=== PATIENT | male | born 1935 | race Caucasian/White ===

== ENCOUNTER 2017-05-21 05:20 | Inpatient (IN) | payer OTHER ==
[~2017-05-21] VITALS: Ht 182.9 cm; Wt 96.0 kg
[~2017-05-21 05:20] MED LIST: ASPEC81 PO; DORZ1SOL OPL; EZET10TA63 PO; LEVO25TA5 PO; METO100T44 PO; MULT-506 PO; TAFL1DRO14 OPL
[2017-05-21] MEDS ORDERED: SODIUM CHLORIDE 0.9% 1000ML 1,000 ML IV STA ×2 (05:32→06:41)
[2017-05-21] MEDS ORDERED: FENTANYL CITRATE INJ 50 MCG/1 ML 2 ML VIAL IV STA (05:32)
[2017-05-21] MEDS ORDERED: ONDANSETRON INJ 2 MG/ML 2 ML VIAL IV STA (05:32)
--- NOTE | 2017-05-21 05:47 | EMERGENCY ROOM VISIT NOTE ---
History Report prepared by Pat: Femi Payne Under the Supervision of: Dr. Adiel Reyes M.D. First contact with patient: 05:27 Chief Complaint: KIDNEY STONE Stated Complaint: POSSIBLE KIDNEY STONE History of Present Illness The patient is an 82 year old male who presents to the Emergency Room with complaints of persistent left flank pain for one hour. He notes it feels like pressure. He reports nausea. He denies any rashes. He denies taking any pain medication. He notes that he can urinate. He has a history of kidney stones. He denies any surgeries related to kidney stones. He denies any abdominal aneurysms. He regularly takes baby Aspirin. He has history of cardiac bypass surgery. He denies any diarrhea. He denies any strenuous activity. He denies any leg swelling. He denies any history of CHF. Source of History: patient Onset: one hour ago Position: other (left flank) Quality: pressure Timing: other (persistent) Associated Symptoms: + nausea, No diarrhea, No rash Note: He denies any leg swelling. Review of Systems See HPI for pertinent positives & negatives. A total of 10 systems reviewed and were otherwise negative. Past Medical & Surgical Medical Problems: (1) Dyslipidemia (2) HTN (hypertension) (3) Hypothyroidism (4) Kidney stone Surgical Problems: (1) Hx of CABG (2) Hx of cholecystectomy Family History Diabetes mellitus FHx: heart disease Hypertension Kidney disease Kidney stones Social History Smoking Status: Never Smoker Smokeless Tobacco Use: No Alcohol Use: occasionally (rarely) Marital Status: Housing Status: lives with significant other Occupation Status: unemployed Current/Historical Medications Scheduled Aspirin Enteric Coated (Ecotrin Or Generic *), 81 MG PO QAM Ezetimibe (Zetia), 10 MG PO QPM Levothyroxine Sodium (Levothyroxine Sodium), 25 MCG PO QAM Metoprolol Tartrate (Lopressor) (Lopressor), 50 MG PO DAILY Multivitamin (Multivitamin), 1 TAB PO QAM Allergies Coded Allergies: Atorvastatin (Unverified Adverse Reaction, Unknown, MUSCLE CRAMPS, 05/21/17 ) Simvastatin (Unverified Adverse Reaction, Unknown, MUSCLE CRAMPS, 05/21/17) Physical Exam Vital Signs Date Time Temp Pulse Resp B/P (MAP) Pulse Ox O2 Delivery O2 Flow Rate FiO2 05/21/17 08:41 82 18 157/79 97 Nasal Cannula 2.0 05/21/17 07:48 77 18 124/74 97 Nasal Cannula 2.0 05/21/17 07:45 97 Nasal Cannula 2.0 05/21/17 07:16 89 Room Air 05/21/17 06:41 74 20 158/96 98 Room Air 05/21/17 06:31 76 20 163/94 97 Room Air 05/21/17 06:10 70 16 135/95 95 Room Air 05/21/17 05:23 36.3 76 18 173/94 97 Room Air Physical Exam GENERAL: Patient is uncomfortable-appearing and in moderate acute distress. EYES: No scleral icterus, unremarkable pupils. ENT: Mucous membranes moist, no nasal congestion. NECK: No masses appreciated, no meningismus, trachea is midline. RESPIRATORY: No dyspnea. Clear to auscultation and equal bilaterally. No wheeze , no rhonchi. CARDIOVASCULAR: Regular rate and rhythm. No murmurs, rubs, gallops appreciated. GASTROINTESTINAL: Abdomen soft, nontender, no peritonitis. Bowel sounds positive. No masses appreciated. BACK: No midline tenderness, mild left CVA tenderness to palpation. EXTREMITIES: Normal motion all extremities, no cyanosis, no edema. NEUROLOGIC: Alert and oriented, no acute motor or sensory deficits, no focal weakness, cranial nerves grossly intact. SKIN: No rash, no jaundice, no diaphoresis. Medical Decision & Procedures ER Provider Diagnostic Interpretation: CT Abdo/Pelv wo Con: Read per radiologist. Imaging and Read reviewed by me IMPRESSION: 1. Obstructing 4 mm calculus in the proximal left ureter at the level of L4 with resultant mild left hydroureteronephrosis. 2. Nonobstructing 3 mm left renal calculus. No right renal calculi. 3. Chronic bladder outlet obstruction with prostatomegaly. Electronically signed by: Morro Matson M.D. Laboratory Results Test 05/21/17 05:40 RDW Standard Deviation 51.0 fL (36.4-46.3) RDW Coefficient of Variation 15.2 % (11.5-14.5) White Blood Count 6.73 K/uL (4.8-10.8) Red Blood Count 4.72 M/uL (4.7-6.1) Hemoglobin 14.9 g/dL (14.0-18.0) Hematocrit 43.6 % (42-52) Mean Corpuscular Volume 92.4 fL (80-100) Mean Corpuscular Hemoglobin 31.6 pg (25-34) Mean Corpuscular Hemoglobin Concent 34.2 g/dl (32-36) Platelet Count 150 K/uL (130-400) Mean Platelet Volume 9.7 fL (7.4-10.4) Neutrophils (%) (Auto) 40.6 % Lymphocytes (%) (Auto) 45.2 % Monocytes (%) (Auto) 9.8 % Eosinophils (%) (Auto) 3.7 % Basophils (%) (Auto) 0.3 % Neutrophils # (Auto) 2.73 K/uL (1.4-6.5) Lymphocytes # (Auto) 3.04 K/uL (1.2-3.4) Monocytes # (Auto) 0.66 K/uL (0.11-0.59) Eosinophils # (Auto) 0.25 K/uL (0-0.5) Basophils # (Auto) 0.02 K/uL (0-0.2) Immature Granulocyte % (Auto) 0.4 % Immature Granulocyte # (Auto) 0.03 K/uL (0.00-0.02) Prothrombin Time 10.6 SECONDS (9.0-12.0) Prothromb Time International Ratio 1.0 (0.9-1.1) Activated Partial Thromboplast Time 24.4 SECONDS (21.0-31.0) Partial Thromboplastin Ratio 0.9 Est Creatinine Clear Calc Drug Dose 46.2 ml/min Total Bilirubin 0.8 mg/dl (0.2-1) Direct Bilirubin 0.2 mg/dl (0-0.2) Aspartate Amino Transf (AST/SGOT) 19 U/L (15-37) Alanine Aminotransferase (ALT/SGPT) 26 U/L (12-78) Alkaline Phosphatase 71 U/L (45-117) Total Creatine Kinase 130 U/L (39-308) Total Protein 7.9 gm/dl (6.4-8.2) Albumin 4.0 gm/dl (3.4-5.0) Lipase 131 U/L (73-393) Laboratory results as reviewed by me. Medications Administered Medications (Trade) Dose Ordered Sig/Juan Route Start Time Stop Time Status Last Admin Dose Admin Sodium Chloride 1,000 ml @ 999 mls/hr Q1H1M STAT IV 05/21/17 05:32 05/21/17 06:32 DC 05/21/17 06:09 999 MLS/HR Fentanyl Citrate (Fentanyl Inj) 75 mcg NOW STAT IV 05/21/17 05:32 05/21/17 05:33 DC 05/21/17 05:46 75 MCG Ondansetron HCl (Zofran Inj) 4 mg NOW STAT IV 05/21/17 05:32 05/21/17 05:33 DC 05/21/17 05:46 4 MG Hydromorphone HCl (Dilaudid Inj) 0.5 mg NOW STAT IV 05/21/17 06:10 05/21/17 06:11 DC 05/21/17 06:14 0.5 MG Hydromorphone HCl (Dilaudid Inj) 1 mg NOW STAT IV 05/21/17 06:23 05/21/17 06:24 DC 05/21/17 06:30 1 MG Tamsulosin HCl (Flomax Cap) 0.4 mg NOW ONCE PO 05/21/17 06:45 05/21/17 06:46 DC 05/21/17 07:02 0.4 MG Sodium Chloride 1,000 ml @ 100 mls/hr Q10H STAT IV 05/21/17 06:41 05/21/17 10:05 DC 05/21/17 06:57 100 MLS/HR Ketorolac Tromethamine (Toradol Inj) 15 mg NOW STAT IV 05/21/17 06:43 05/21/17 06:45 DC 05/21/17 06:56 15 MG Ondansetron HCl (Zofran Inj) 4 mg Q6H PRN IV 05/21/17 07:00 05/21/17 10:05 DC 05/21/17 08:38 4 MG Ondansetron HCl (Zofran Inj) 4 mg Q6H PRN IV 05/21/17 08:30 06/20/17 08:29 05/21/17 17:13 4 MG ED Course 0528: The patient was evaluated in room A3. A complete history and physical exam was performed. 0610: I reassessed the patient at this time. He reports mild relief with Fentanyl. He states it initially helped, though the pain returned. Medical Decision Differential: Renal Colic, Pyelonephritis, Hydronephrosis, Appendicitis, Diverticulitis, Retroperitoneal Bleed/Infection, Aortic Pathology, MSK, Neurologic Pathology, amongst other pathologies entertained. 82 yr old very uncomfortable male with left flank pain sudden onset and nausea. Story and exam consistent with ureteral stone and CT done given no recent imaging and only distant stone in past. CT with 4 mm proximal stone. Continued discomfort despite 3 rounds IV narcotics. Reviewed with Uro who agree with Toradol, Flomax and further narcotics as necessary. Mild renal insufficiency but seems reasonable single dose toradol, especially if this helps alleviate pain and will be monitored closely. Hospitalist consulted given intractable pain and requiring multiple rounds IV narcotics. Not septic and labs without renal failure. Awaiting UA though without fever nor WBC elevation I do not feel that empiric abx required at this time. Medication Reconcilliation Current Medication List: was personally reviewed by me Blood Pressure Screening Patient's blood pressure: Elevated blood pressure Blood pressure disposition: Elevated BP felt to be situational Impression Primary Impression: Left ureteral calculus Additional Impression: Dehydration Scribe Attestation The scribe's documentation has been prepared under my direction and personally reviewed by me in its entirety. I confirm that the note above accurately reflects all work, treatment, procedures, and medical decision making performed by me. Departure Information Dispostion Home / Self-Care Referrals Gin Ledesma M.D. (PCP) Patient Instructions Kidney Stones - [facility], My [facility] Problem Qualifiers
[2017-05-21 06:00] LABS: BASO % 0.3 %; BASO ABS # 0.02 K/uL (0-0.2); EOS % 3.7 %; EOS ABS # 0.25 K/uL (0-0.5); HEMATOCRIT 43.6 % (42-52); HEMOGLOBIN 14.9 g/dL (14.0-18.0); IG# 0.03 K/uL (0.00-0.02); LYMPH % 45.2 %; LYMPH ABS # 3.04 K/uL (1.2-3.4); MEAN CELL VOLUME 92.4 fL (80-100); MEAN CORPUSCULAR HEMOGLOBIN 31.6 pg (25-34); MEAN CORPUSCULAR HGB CONC 34.2 g/dl (32-36); MEAN PLATELET VOLUME 9.7 fL (7.4-10.4); MONO % 9.8 %; MONO ABS # 0.66 K/uL (0.11-0.59); NEUT % 40.6 %; NEUT ABS # 2.73 K/uL (1.4-6.5); PLATELET COUNT 150 K/uL (130-400); RED CELL DISTRIBUTION WIDTH CV 15.2 % (11.5-14.5); WHITE BLOOD COUNT 6.73 K/uL (4.8-10.8)
[2017-05-21] MEDS ORDERED: HYDROmorphone INJ 0.5 MG/0.5 ML SYR IV STA (06:10)
[2017-05-21 06:14] LABS: CALCIUM 8.9 mg/dl (8.5-10.1); CREATININE 1.4 mg/dl (0.60-1.40); POTASSIUM 3.9 mmol/L (3.5-5.1)
[2017-05-21 06:17] LABS: TOTAL PROTEIN 7.9 gm/dl (6.4-8.2)
--- NOTE | 2017-05-21 06:17 | DIAGNOSTIC IMAGING REPORT ---
ABD/PELVIS WITHOUT FOR STONE CLINICAL HISTORY: 82 years-old Male presenting with left flank pain 1 hr prior. TECHNIQUE: Multidetector CT of the abdomen and pelvis was performed without the use of intravenous contrast. IV contrast: None. A dose lowering technique was used consistent with the principles of ALARA (as low as reasonably achievable). COMPARISON: Ultrasound from 2005. CT DOSE (mGy.cm): The estimated cumulative dose is 933.79 mGy.cm. FINDINGS: It Director topogram: Cholecystectomy clips. Median sternotomy wires. Lung bases: Minimal basilar opacities, likely atelectasis. Multichamber enlargement of the heart. Coronary artery calcification. No pericardial or pleural effusion. Liver: Normal morphology. Normal density. Subcentimeter hypodensity in the anterior liver indeterminate but likely hepatic cyst or hamartoma. Biliary: No gross biliary ductal dilatation allowing for noncontrast technique. Gallbladder surgically absent. Pancreas: Normal noncontrast appearance. Spleen: Normal noncontrast appearance. Adrenal glands: Normal noncontrast appearance. Kidneys and ureters: Nonobstructing 3 mm left renal calculus. Mild left pelvocaliectasis. Left ureter mildly dilated in the proximal portion with an obstructing 4 mm calculus at the level of L4. Mild perinephric fat stranding bilaterally, nonspecific. No right renal calculi. Otherwise normal noncontrast appearance of the kidneys. Right ureter normal. Bladder: Circumferential bladder wall thickening. Bladder diverticulum noted. Pelvic organs: Prostate enlargement likely secondary to benign prostatic hyperplasia. Bowel: Few diverticula noted in the sigmoid colon. Mild stool burden. The appendix is normal. No bowel obstruction. Small hiatal hernia. Peritoneal cavity: No free fluid or intraperitoneal gas. Lymph nodes: No gross lymphadenopathy allowing for noncontrast technique. Vasculature: Atherosclerosis of the normal caliber abdominal aorta. Abdominal wall: Normal. Musculoskeletal: Degenerative changes of the spine. IMPRESSION: 1. Obstructing 4 mm calculus in the proximal left ureter at the level of L4 with resultant mild left hydroureteronephrosis. 2. Nonobstructing 3 mm left renal calculus. No right renal calculi. 3. Chronic bladder outlet obstruction with prostatomegaly. Electronically signed by: Morro Matson M.D. 05/21/2017 6:16 AM Dictated Date/Time: 05/21/2017 6:08 AM
[2017-05-21] MEDS ORDERED: HYDROmorphone INJ 1 MG/ML SYR IV STA (06:23)
[2017-05-21] MEDS ORDERED: KETOROLAC TROMETHAMINE 30 MG/ML VIAL IV STA (06:43)
[2017-05-21] MEDS ORDERED: TAMSULOSIN HCL 0.4 MG CAP PO ONE (06:45)
[2017-05-21] MEDS ORDERED: HYDROmorphone INJ 1 MG/ML SYR IV PRN ×2 (07:00→09:15)
[2017-05-21] MEDS ORDERED: ONDANSETRON INJ 2 MG/ML 2 ML VIAL IV PRN ×2 (07:00→10:30)
--- NOTE | 2017-05-21 07:41 | DIAGNOSTIC IMAGING REPORT ---
CHEST ONE VIEW PORTABLE CLINICAL HISTORY: 82 years-old Male presenting with ureteral calculus. TECHNIQUE: Portable upright AP view of the chest was obtained. COMPARISON: 07/23/2007. FINDINGS: Median sternotomy wires intact. Atherosclerosis of the aortic arch. Cardiac silhouette normal in size. No focal opacity. No large effusion or pneumothorax. Degenerative changes of the thoracic spine. Upper abdomen normal. IMPRESSION: 1. No acute cardiopulmonary disease. Electronically signed by: Morro Matson M.D. 05/21/2017 7:39 AM Dictated Date/Time: 05/21/2017 7:38 AM
[2017-05-21 07:45] VITALS: O2SAT 97; Ht 182.9 cm; Wt 96.0 kg
[2017-05-21 07:57] LABS: PTT PATIENT 24.4 SECONDS (21.0-31.0)
--- NOTE | 2017-05-21 08:29 | History and Physical ---
History & Physical Date & Time of Service: May 21, 2017 at 08:29 . Chief Complaint: left flank pain, nausea, vomiting . Primary Care Physician: Gin Ledesma M.D. History of Present Illness Source: patient, clinic records, hospital records 82 YO male followed by Gin Ledesma. History of CAD, hypertension, renal calculi, and other problems as noted below. Developed left flank pain this morning around 03:00. Pain was severe and constant; radiated to the left groin. No fever, dysuria, hematuria. Pain associated with nausea and vomiting. Came to ED for evaluation. [place] somewhat better after receiving fentanyl, hydromorphone, ondansetron. . 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 Family History FATHER Pneumoconiosis MOTHER Diabetes mellitus BROTHER Diabetes mellitus Coronary artery disease SISTER Diabetes mellitus Social History Smoking Status: Never Smoker Smokeless Tobacco Use: No Alcohol Use: occasionally Marital Status: Occupational Status: unemployed Immunizations History of Influenza Vaccine: Yes History of Pneumococcal: Yes Allergies Coded Allergies: Atorvastatin (Unverified Adverse Reaction, Unknown, MUSCLE CRAMPS, 05/21/17 ) Simvastatin (Unverified Adverse Reaction, Unknown, MUSCLE CRAMPS, 05/21/17) Home Medications Scheduled Aspirin Enteric Coated (Ecotrin Or Generic *), 81 MG PO QAM Ezetimibe (Zetia), 10 MG PO QPM Levothyroxine Sodium (Levothyroxine Sodium), 25 MCG PO QAM Metoprolol Tartrate (Lopressor) (Lopressor), 50 MG PO DAILY Multivitamin (Multivitamin), 1 TAB PO QAM Review of Systems CONSTITUTIONAL no fever no weight loss EYES chronic vision loss EARS, NOSE, MOUTH, AND THROAT + mild hearing loss no sinus symptoms no pharyngitis CARDIOVASCULAR no chest pain no palpitations no edema RESPIRATORY no cough no dyspnea GASTROINTESTINAL + nausea or vomiting, no hematemesis no diarrhea no constipation no melena or hematochezia GENITOURINARY as noted above in HPI MUSCULOSKELETAL + arthralgias INTEGUMENTARY no rash no new / changing lesions NEUROLOGIC no headaches no focal neurologic symptoms ENDOCRINE no polyuria or polydipsia HEMATOLOGIC / LYMPHATIC bruises easily no adenopathy . Physical Exam Vital Signs Date Time Temp Pulse Resp B/P (MAP) Pulse Ox O2 Delivery O2 Flow Rate FiO2 05/21/17 07:48 77 18 124/74 97 Nasal Cannula 2.0 05/21/17 07:45 97 Nasal Cannula 2.0 05/21/17 07:16 89 Room Air 05/21/17 06:41 74 20 158/96 98 Room Air 05/21/17 06:31 76 20 163/94 97 Room Air 05/21/17 06:10 70 16 135/95 95 Room Air 05/21/17 05:23 36.3 76 18 173/94 97 Room Air CONSTITUTIONAL vital signs as noted above well-developed, well-nourished, appears to be uncomfortable EYES conjunctivae clear; lids normal pupils equal and reactive to light EARS, NOSE, MOUTH AND THROAT external inspection of ears and nose unremarkable hearing grossly intact to spoken voice oropharynx clear NECK no masses; trachea midline thyroid normal RESPIRATORY normal respiratory effort; no respiratory distress clear to percussion clear to auscultation CARDIOVASCULAR regular rate and rhythm no murmur, gallop, rub appreciated carotid arteries 2/2 abdominal aorta not palpable pedal pulses intact and symmetric capillary refill toes < 2 seconds no pretibial edema GASTROINTESTINAL left abdominal tenderness normal bowel sounds, soft; no palpable masses no hepatomegaly; no splenomegaly LYMPHATIC no cervical adenopathy MUSCULOSKELETAL no cyanosis; no digital clubbing no calf tenderness motor strength extremities grossly intact SKIN no rash warm and dry NEUROLOGIC PERRL, EOMI, no facial palsy, no dysarthria, tongue midline PSYCHIATRIC oriented to person, place, time mood and affect appropriate . Diagnostics Laboratory Results Results Past 24 Hours Test 05/21/17 05:40 Range/Units White Blood Count 6.73 4.8-10.8 K/uL Red Blood Count 4.72 4.7-6.1 M/uL Hemoglobin 14.9 14.0-18.0 g/dL Hematocrit 43.6 42-52 % Mean Corpuscular Volume 92.4 80-100 fL Mean Corpuscular Hemoglobin 31.6 25-34 pg Mean Corpuscular Hemoglobin Concent 34.2 32-36 g/dl Platelet Count 150 130-400 K/uL Mean Platelet Volume 9.7 7.4-10.4 fL Neutrophils (%) (Auto) 40.6 % Lymphocytes (%) (Auto) 45.2 % Monocytes (%) (Auto) 9.8 % Eosinophils (%) (Auto) 3.7 % Basophils (%) (Auto) 0.3 % Neutrophils # (Auto) 2.73 1.4-6.5 K/uL Lymphocytes # (Auto) 3.04 1.2-3.4 K/uL Monocytes # (Auto) 0.66 0.11-0.59 K/uL Eosinophils # (Auto) 0.25 0-0.5 K/uL Basophils # (Auto) 0.02 0-0.2 K/uL RDW Standard Deviation 51.0 36.4-46.3 fL RDW Coefficient of Variation 15.2 11.5-14.5 % Immature Granulocyte % (Auto) 0.4 % Immature Granulocyte # (Auto) 0.03 0.00-0.02 K/uL Prothrombin Time 10.6 9.0-12.0 SECONDS Prothromb Time International Ratio 1.0 0.9-1.1 Activated Partial Thromboplast Time 24.4 21.0-31.0 SECONDS Partial Thromboplastin Ratio 0.9 Sodium Level 139 136-145 mmol/L Potassium Level 3.9 3.5-5.1 mmol/L Chloride Level 108 98-107 mmol/L Carbon Dioxide Level 27 21-32 mmol/L Anion Gap 4.0 3-11 mmol/L Blood Urea Nitrogen 20 7-18 mg/dl Creatinine 1.40 0.60-1.40 mg/dl Est Creatinine Clear Calc Drug Dose 46.2 ml/min Estimated GFR () 54.6 Estimated GFR (Non- 47.1 BUN/Creatinine Ratio 14.4 10-20 Random Glucose 109 70-99 mg/dl Calcium Level 8.9 8.5-10.1 mg/dl Total Bilirubin 0.8 0.2-1 mg/dl Direct Bilirubin 0.2 0-0.2 mg/dl Aspartate Amino Transf (AST/SGOT) 19 15-37 U/L Alanine Aminotransferase (ALT/SGPT) 26 12-78 U/L Alkaline Phosphatase 71 45-117 U/L Total Creatine Kinase 130 39-308 U/L Total Protein 7.9 6.4-8.2 gm/dl Albumin 4.0 3.4-5.0 gm/dl Lipase 131 73-393 U/L Diagnostic Radiology CHEST ONE VIEW PORTABLE FINDINGS: Median sternotomy wires intact. Atherosclerosis of the aortic arch. Cardiac silhouette normal in size. No focal opacity. No large effusion or pneumothorax. Degenerative changes of the thoracic spine. Upper abdomen normal. IMPRESSION: 1. No acute cardiopulmonary disease. Electronically signed by: Morro Matson M.D. 05/21/2017 7:39 AM Dictated Date/Time: 05/21/2017 7:[address] ABD/PELVIS WITHOUT FOR STONE IMPRESSION: 1. Obstructing 4 mm calculus in the proximal left ureter at the level of L4 with resultant mild left hydroureteronephrosis. 2. Nonobstructing 3 mm left renal calculus. No right renal calculi. 3. Chronic bladder outlet obstruction with prostatomegaly. Electronically signed by: Morro Matson M.D. 05/21/2017 6:16 AM Dictated Date/Time: 05/21/2017 6:08 AM . EKG EKG performed at 09:07 reviewed and demonstrated NSR at 70 / minute, possible age-indeterminate inferior infarct, no acute changes.. . Impression Assessment and Plan LEFT URETERAL CALCULUS WITH HYDRONEPHROSIS CT demonstrated left ureteral calculus with hydronephrosis. UA pending at time of admission. Afebrile. IV fluids, analgesics, anti-emetics, tamsulosin. Strain urine. Check follow-up KUB in a.m. CORONARY ARTERY DISEASE History of CAD, s/p CABG. No recent anginal symptoms. Unable to take oral metoprolol at this time due to N & V. IV metoprolol until able to resume oral meds. Resume aspirin when able. HYPERTENSION IV metoprolol until able to resume oral meds. Follow and titrate Rx. VTE PROPHYLAXIS SQ heparin ordered. Ambulate. RESUSCITATION STATUS Discussed with patient and his family. He has a living will. He would like resuscitation attempted in the event of a cardiopulmonary arrest if there is a reasonable chance of a meaningful recovery, but does not want prolonged extraordinary measures if prognosis is poor. Therefore, code status = "Level 1" (full resuscitation). DISPOSITION Expected discharge to home. Internal Medicine follow-up with Dr. Gin Ledesma. . Advanced Directives Existing Living Will: Yes Existing Power of Sales And Service Specialist: Yes Resuscitation Status VTE Prophylaxis Will order VTE Prophylaxis: Yes
[2017-05-21] MEDS ORDERED: ACETAMINOPHEN 325 MG TAB PO PRN (08:30)
[2017-05-21] MEDS ORDERED: SODIUM CHLORIDE 0.9% 1000ML 1,000 ML IV SCH (09:15)
[2017-05-21] MEDS ORDERED: LORAZEPAM INJ 0.5 MG in SYRINGE 0.75 ML IV PRN (09:15)
[2017-05-21] MEDS ORDERED: METO100T14 PO (09:21)
[2017-05-21] MEDS ORDERED: METOPROLOL TARTRATE 1 MG/ML VIAL IV ONE (09:30)
--- NOTE | 2017-05-21 10:00 | Urology Consultation ---
History General Date of Service: May 21, 2017. Primary Care Physician: Gin Ledesma M.D. History of Present Illness 82-year-old gentleman presenting to the emergency room this morning with acute left flank pain Associated nausea and vomiting No relief with [id number] meds Found to have a 4 mm left mid ureteral stone with associated mild hydronephrosis and perinephric inflammation Afebrile No leukocytosis Creatinine 1.4 remote hx of a passed kidney stone hx of TURP ([facility] - 10+ years ago) hx of CABG - on ASA Pain significantly better after a single dose of Toradol - still with nausea/vomiting Imaging Imaging: CT Laboratory Labs were reviewed and are within normal limits unless listed below. Labs are available in the chart and at [facility] Problem List Medical Problems: (1) Dehydration Status: Acute (2) Left ureteral calculus Status: Acute Past History BPH, coronary artery disease, high cholesterol, hypertension, kidney stones Past Surgical History: cholecystectomy, coronary bypass surgery, other (turp) Family History Diabetes mellitus FHx: heart disease Hypertension Kidney disease Kidney stones Social History Hx Tobacco Use In Past Year?: No Smoking: non-smoker Marital status: Occupation status: unemployed History of MDRO No Allergies Coded Allergies: Atorvastatin (Unverified Adverse Reaction, Unknown, MUSCLE CRAMPS, 05/21/17 ) Simvastatin (Unverified Adverse Reaction, Unknown, MUSCLE CRAMPS, 05/21/17) Medications Home Medications: Home Meds and Scripts Medications Dose Route/Sig Max Daily Dose Days Date Category Dose Instructions Lopressor (Metoprolol Tartrate) 100 Mg Tab 50 Mg PO DAILY 05/21/17 Reported 1/2 pill (50 mg) daily Levothyroxine Sodium 25 Mcg Tab 25 Mcg PO QAM 11/25/14 Reported Multivitamin (Multivitamins) Tab 1 Tab PO QAM 07/18/09 Reported Ecotrin Or Generic * (Aspirin) 81 Mg Ectab 81 Mg PO QAM 07/23/07 Reported Zetia (Ezetimibe) 10 Mg Tab 10 Mg PO QPM 07/23/07 Reported Inpatient Medications: Current Inpatient Medications Medications (Trade) Dose Ordered Sig/Juan Route Start Time Stop Time Status Last Admin Dose Admin Sodium Chloride 1,000 ml @ 100 mls/hr Q10H STAT IV 05/21/17 06:41 05/21/17 16:40 05/21/17 06:57 100 MLS/HR Hydromorphone HCl (Dilaudid Inj) 1 mg Q30M PRN IV 05/21/17 07:00 06/04/17 06:59 Ondansetron HCl (Zofran Inj) 4 mg Q6H PRN IV 05/21/17 07:00 06/20/17 06:59 05/21/17 08:38 4 MG Acetaminophen (Tylenol Tab) 650 mg Q4H PRN PO 05/21/17 08:30 06/20/17 08:29 Ondansetron HCl (Zofran Inj) 4 mg Q6H PRN IV 05/21/17 08:30 06/20/17 08:29 Tamsulosin HCl (Flomax Cap) 0.4 mg BID PO 05/21/17 21:00 06/20/17 20:59 UNV Metoprolol Tartrate (Lopressor Iv) 5 mg BID IV. 05/21/17 21:00 06/20/17 20:59 UNV Sodium Chloride 1,000 ml @ 250 mls/hr Q4H IV 05/21/17 09:15 05/21/17 13:14 UNV Dextrose/Lactated Ringer's 1,000 ml @ 125 mls/hr Q8H IV 05/21/17 09:15 06/20/17 09:14 UNV Hydromorphone HCl (Dilaudid Inj) 0.5 mg for moderate pain (5... Q2H PRN IV 05/21/17 09:15 06/04/17 09:14 Lorazepam 0.5 mg/ Syringe 0.5 ml @ 0.5 mls/min Q6H PRN IV 05/21/17 09:15 06/20/17 09:14 UNV Heparin Sodium (Porcine) (Heparin Sq 5000 Unit/0.5ml) 5,000 unit Q8 SQ 05/21/17 14:00 06/20/17 13:59 UNV Review of Systems Review of Systems Constitutional: No see HPI, No fever, No chills, No frequent headaches, No weight loss, No problem reported Eyes: No see HPI, No blurred vision, No double vision, No eye pain, No loss of night vision, No problem reported Neurological: No see HPI, No dizzy, No passing out, No numbness/tingling, No seizures, No problem reported Endocrine: No see HPI, No excessive thirst, No too hot, No too cold, No tired/ sluggish, No problem reported Gastrointestinal: + abdominal pain, + nausea, + vomiting Cardiovascular: No see HPI, No heart murmur, No chest pain, No angina, No irregular heartbeat, No palpitations, No swelling ankles/feet, No problem reported Respiratory: No see HPI, No shortness of breath, No wheezing, No coughing up blood, No chronic cough, No problem reported Skin: No see HPI, No rash, No boils, No dry skin, No problem reported Musculoskeletal: No see HPI, No joint pain, No neck pain, No back pain, No arthritis, No problem reported Blood / Lymphatic: No see HPI, No bleed easily, No bruise easily, No swollen glands, No problem reported Ears / Nose / Throat: No see HPI, No hearing loss, No sinus, No hoarse voice, No sore throat, No problem reported Psychologic / Mental: No see HPI, No nervous, No trouble remembering, No difficulty sleeping, No problem reported Male : + weak stream, + kidney stones All Other Systems: Reviewed and Negative Physical Exam Vital Signs: Vital Signs Past 12 Hours Date Time Temp Pulse Resp B/P (MAP) Pulse Ox O2 Delivery O2 Flow Rate FiO2 05/21/17 09:42 72 18 130/73 96 Nasal Cannula 2.0 05/21/17 08:41 82 18 157/79 97 Nasal Cannula 2.0 05/21/17 07:48 77 18 124/74 97 Nasal Cannula 2.0 05/21/17 07:45 97 Nasal Cannula 2.0 05/21/17 07:16 89 Room Air 05/21/17 06:41 74 20 158/96 98 Room Air 05/21/17 06:31 76 20 163/94 97 Room Air 05/21/17 06:10 70 16 135/95 95 Room Air 05/21/17 05:23 36.3 76 18 173/94 97 Room Air Physical Exam: General Appearance: WD/WN, + moderate distress ENT: hearing grossly normal Neck: supple Respiratory/Chest: no respiratory distress, no accessory muscle use Cardiovascular: no edema Gastrointestinal: Abdomen: LUQ tenderness Bladder: normal bladder Renal: cva tenderness (moderately tender on the left) Extremities: no pedal edema, no calf tenderness Neurologic/Psychiatric: alert, normal mood/affect, oriented x 3 Skin: normal color, warm/dry Lymphatic: no adenopathy Assessment & Plan Assessment & Plan L ureteral stone with renal colic - 4mm, mid ureteral stone (also with a 3mm renal stone) - pain improved, but still struggling with nausea and vomiting - no fevers - no severe leukocytosis - given the size and his prior successful passage, we will make an initial effort at conservative management, but make him NPO at [place] in case he does not progress well - on flomax - added prn zofran - dose of toradol in ER - ok to repeat, but cautiously as his Cr is borderline for toradol
[2017-05-21 10:05] VITALS: BP 152/78; PULSE 72; TEMP 36.5; O2SAT 90
[2017-05-21 12:21] VITALS: BP 143/65; PULSE 66; TEMP 36.5; O2SAT 97
[2017-05-21] MEDS: D5W AND LACTATED RINGERS 1,000 ML IV SCH ×2 (12:54→20:46)
[2017-05-21] MEDS: HEPARIN SOD 5000 UNIT/0.5 ML CARP SQ SCH ×2 (14:00→20:50)
[2017-05-21] MEDS: HYDROmorphone INJ 0.5 MG/0.5 ML SYR IV PRN ×2 (14:09→21:43)
[2017-05-21 16:09] VITALS: BP 151/73; PULSE 65; TEMP 36.4; O2SAT 94
[2017-05-21] MEDS: ONDANSETRON INJ 2 MG/ML 2 ML VIAL IV PRN (17:13)
[2017-05-21 19:57] VITALS: BP 150/73; PULSE 68; TEMP 36.8; O2SAT 99
[2017-05-21] MEDS: TAMSULOSIN HCL 0.4 MG CAP PO SCH (20:46)
[2017-05-21] MEDS: METOPROLOL TARTRATE 1 MG/ML VIAL IV. SCH (20:48)
[2017-05-21] MEDS ORDERED: ENOXAPARIN 40 MG/0.4 ML SYR SQ SCH (21:00)
[2017-05-22] VITALS (15 sets, daily range): BP systolic 117–154; BP diastolic 63–77; PULSE 66–78; TEMP 36.3–36.9; O2SAT 90–97
[2017-05-22] MEDS: D5W AND LACTATED RINGERS 1,000 ML IV SCH ×3 (00:52→19:52)
[2017-05-22 07:33] LABS: HEMATOCRIT 35.2 % (42-52); HEMOGLOBIN 11.7 g/dL (14.0-18.0); WHITE BLOOD COUNT 10.11 K/uL (4.8-10.8)
[2017-05-22 07:34] LABS: MEAN CELL VOLUME 92.9 fL (80-100); MEAN CORPUSCULAR HEMOGLOBIN 30.9 pg (25-34); MEAN CORPUSCULAR HGB CONC 33.2 g/dl (32-36); MEAN PLATELET VOLUME 9.4 fL (7.4-10.4); PLATELET COUNT 114 K/uL (130-400); RED CELL DISTRIBUTION WIDTH CV 15.3 % (11.5-14.5); RED CELL DISTRIBUTION WIDTH SD 52.6 fL (36.4-46.3)
[2017-05-22 07:48] LABS: CALCIUM 8.1 mg/dl (8.5-10.1); CREATININE 1.96 mg/dl (0.60-1.40); POTASSIUM 4.3 mmol/L (3.5-5.1)
[2017-05-22] MEDS: HYDROmorphone INJ 0.5 MG/0.5 ML SYR IV PRN ×2 (08:03→19:53)
[2017-05-22] MEDS: TAMSULOSIN HCL 0.4 MG CAP PO SCH ×2 (08:10→19:53)
[2017-05-22] MEDS: METOPROLOL TARTRATE 1 MG/ML VIAL IV. SCH ×2 (08:13→19:56)
[2017-05-22] MEDS: ONDANSETRON INJ 2 MG/ML 2 ML VIAL IV PRN (09:05)
[2017-05-22] MEDS ORDERED: CIPROFLOXACIN 400MG / 200ML D5W IV ONE (09:30)
--- NOTE | 2017-05-22 09:34 | Progress Note ---
Subjective Date of Service: May 22, 2017. Subjective Pt evaluation today including: conversation w/ patient, chart review, lab review Voiding: no voiding problems 82 yo male with left ureteral stone. Pt continues to have pain and nausea. No vomiting. KUB pending this morning. Denies dysuria or hematuria. Cr noted to be rising at 1.96 this morning. Problem List Medical Problems: (1) Dehydration Status: Acute (2) Left ureteral calculus Status: Acute Review of Systems Constitutional: No fever, No chills Respiratory: No shortness of breath Cardiac: No chest pain Abdomen: + pain (LLQ and flank ), + nausea, No vomiting Male : No dysuria, No hematuria Heme: No abnormal bleeding/bruising Objective Vital Signs Date Time Temp Pulse Resp B/P (MAP) Pulse Ox O2 Delivery O2 Flow Rate FiO2 05/22/17 08:13 80 141/72 05/22/17 08:09 36.8 78 17 119/67 (84) 92 Room Air 05/22/17 05:07 36.7 70 20 126/73 (90) 95 Nasal Cannula 2.0 05/22/17 04:10 Nasal Cannula 2.0 05/22/17 00:01 Nasal Cannula 2.0 05/22/17 00:00 36.6 66 20 117/63 (81) 97 Room Air 05/21/17 20:48 68 150/73 05/21/17 20:00 Nasal Cannula 2.0 05/21/17 19:57 36.8 68 20 150/73 (98) 99 Nasal Cannula 2.0 05/21/17 16:09 36.4 65 18 151/73 (99) 94 Room Air 05/21/17 16:00 Room Air 05/21/17 12:21 36.5 66 18 143/65 (91) 97 Nasal Cannula 2.0 05/21/17 12:00 Nasal Cannula 2.0 05/21/17 10:22 72 152/78 05/21/17 10:05 36.5 72 18 152/78 (102) 90 Room Air 05/21/17 09:42 72 18 130/73 96 Nasal Cannula 2.0 Physical Exam General Appearance: no apparent distress Eyes: normal inspection ENT: hearing grossly normal Neck: no JVD Respiratory/Chest: no respiratory distress, no accessory muscle use Cardiovascular: no JVD Extremities: normal inspection Neurologic/Psychiatric: alert, normal mood/affect, oriented x 3 Skin: normal color Laboratory Results Last 24 Hours Test 05/21/17 18:30 05/22/17 07:13 Urine Color AUDREY Urine Appearance CLEAR Urine pH 5.0 Urine Specific [place] >= 1.030 Urine Protein TRACE Urine Glucose (UA) NEG Urine Ketones NEG Urine Occult Blood 3+ Urine Nitrite NEG Urine Bilirubin NEG Urine Urobilinogen NEG Urine Leukocyte Esterase NEG Urine RBC >30 /hpf Urine WBC 1-5 /hpf Urine Epithelial Cells 5-10 /lpf Urine Bacteria NEG Urine Hyaline Casts 5-10 /lpf Urine Mucus PRESENT White Blood Count 10.11 K/uL Red Blood Count 3.79 M/uL Hemoglobin 11.7 g/dL Hematocrit 35.2 % Mean Corpuscular Volume 92.9 fL Mean Corpuscular Hemoglobin 30.9 pg Mean Corpuscular Hemoglobin Concent 33.2 g/dl RDW Standard Deviation 52.6 fL RDW Coefficient of Variation 15.3 % Platelet Count 114 K/uL Mean Platelet Volume 9.4 fL Sodium Level 143 mmol/L Potassium Level 4.3 mmol/L Chloride Level 110 mmol/L Carbon Dioxide Level 27 mmol/L Anion Gap 6.0 mmol/L Blood Urea Nitrogen 18 mg/dl Creatinine 1.96 mg/dl Est Creatinine Clear Calc Drug Dose 35.9 ml/min Estimated GFR () 36.4 Estimated GFR (Non- 31.4 BUN/Creatinine Ratio 9.3 Random Glucose 114 mg/dl Calcium Level 8.1 mg/dl Assessment and Plan A/P: 4mm left ureteral stone AFVSS. Persistent pain and rising Cr. I have recommended left ureteral stent placement today with Dr. Coates. Possible left ureteroscopy and laser lithotripsy as well. Risks and benefits of the procedure discussed with the pt. All questions answered. Pt agrees to the procedure at this time. Daughter requesting the pt see cardiology for clearance as he has a hx of CABG 16 years ago. Will consult per request. Will also consult anesthesia. He has already had a chest x-ray and EKG. Will check a UC&S. Will order Cipro pre-op. Continue Flomax. Will continue to follow along with primary service.
--- NOTE | 2017-05-22 09:49 | Medical Student: [facility] ---
Med Student Progress Note Date of Service May 22, 2017. Subjective Pt evaluation today including: conversation w/ patient, conversation w/ family , chart review, lab review, review of studies, review of inpatient medication list Pain: significant with movement PO Intake: NPO Voiding: no voiding problems Mr. Barnhart is a 82y Male who presented to ED on 05/21 with L flank pain and pressure. Found to have a 4mm midureteral obstructing stone, with mild hydronephrosis and perinephritic inflammation. Today creatinine increased from 1.4 to 1.96. Patient reporting significant pain with movement and nausea, no emesis. Currnetly NPO. Daughter at bedside. Review of Systems Constitutional: No fever, No chills Respiratory: No cough, No shortness of breath Cardiac: No chest pain Abdomen: + nausea, + vomiting Male : No dysuria, No urinary frequency, No incontinence Endo: No fatigue Skin: No rash Objective Vital Signs Date Time Temp Pulse Resp B/P (MAP) Pulse Ox O2 Delivery O2 Flow Rate FiO2 05/22/17 08:13 80 141/72 05/22/17 08:09 36.8 78 17 119/67 (84) 92 Room Air 05/22/17 05:07 36.7 70 20 126/73 (90) 95 Nasal Cannula 2.0 05/22/17 04:10 Nasal Cannula 2.0 05/22/17 00:01 Nasal Cannula 2.0 05/22/17 00:00 36.6 66 20 117/63 (81) 97 Room Air 05/21/17 20:48 68 150/73 05/21/17 20:00 Nasal Cannula 2.0 05/21/17 19:57 36.8 68 20 150/73 (98) 99 Nasal Cannula 2.0 05/21/17 16:09 36.4 65 18 151/73 (99) 94 Room Air 05/21/17 16:00 Room Air 05/21/17 12:21 36.5 66 18 143/65 (91) 97 Nasal Cannula 2.0 05/21/17 12:00 Nasal Cannula 2.0 05/21/17 10:22 72 152/78 05/21/17 10:05 36.5 72 18 152/78 (102) 90 Room Air 05/21/17 09:42 72 18 130/73 96 Nasal Cannula 2.0 Physical Exam General Appearance: WD/WN, + mild distress ENT: hearing grossly normal Neck: no JVD Respiratory/Chest: no respiratory distress, no accessory muscle use Abdomen: non tender, soft Extremities: non-tender Neurologic/Psychiatric: alert, normal mood/affect, oriented x 3 Skin: warm/dry, no rash, + pallor Lymphatic: no adenopathy Laboratory Results Last 24 Hours Test 05/21/17 18:30 05/22/17 07:13 Urine Color AUDREY Urine Appearance CLEAR Urine pH 5.0 Urine Specific [place] >= 1.030 Urine Protein TRACE Urine Glucose (UA) NEG Urine Ketones NEG Urine Occult Blood 3+ Urine Nitrite NEG Urine Bilirubin NEG Urine Urobilinogen NEG Urine Leukocyte Esterase NEG Urine RBC >30 /hpf Urine WBC 1-5 /hpf Urine Epithelial Cells 5-10 /lpf Urine Bacteria NEG Urine Hyaline Casts 5-10 /lpf Urine Mucus PRESENT White Blood Count 10.11 K/uL Red Blood Count 3.79 M/uL Hemoglobin 11.7 g/dL Hematocrit 35.2 % Mean Corpuscular Volume 92.9 fL Mean Corpuscular Hemoglobin 30.9 pg Mean Corpuscular Hemoglobin Concent 33.2 g/dl RDW Standard Deviation 52.6 fL RDW Coefficient of Variation 15.3 % Platelet Count 114 K/uL Mean Platelet Volume 9.4 fL Sodium Level 143 mmol/L Potassium Level 4.3 mmol/L Chloride Level 110 mmol/L Carbon Dioxide Level 27 mmol/L Anion Gap 6.0 mmol/L Blood Urea Nitrogen 18 mg/dl Creatinine 1.96 mg/dl Est Creatinine Clear Calc Drug Dose 35.9 ml/min Estimated GFR () 36.4 Estimated GFR (Non- 31.4 BUN/Creatinine Ratio 9.3 Random Glucose 114 mg/dl Calcium Level 8.1 mg/dl Assessment and Plan Assessment and Plan: L midureteral stone with renal colic - 4mm obstructing, mild hydronephrosis - Continued pain and nausea, no emesis. - Due to increasing creatinine and pain, recommending cystoscopy and ureteral stent placement today. Discussed with Dr. Coates. Risk vs benefits discussed. - Patient agreeable to plan, daughter at bedside - Cardiology consult for preoperative clearance, daughter request due to CABG and significant cardiac hx - Anesthesia consulted, EKG and CXR done - Continue flomax - KUB pending - Will check UC&S - Cipro IV to be given preoperatively
--- NOTE | 2017-05-22 09:59 | DIAGNOSTIC IMAGING REPORT ---
KUB CLINICAL HISTORY: left ureteral calculus nephrocalcinosis COMPARISON STUDY: CT 05/21/2017 FINDINGS: No significant renal calcifications by routine imaging criteria. 4 mm calcification at the level of L4 on the prior CT study is not apparent. This potentially overlies the lateral aspect of the left mid sacrum. Several pelvic vascular calcifications are present. There are degenerative changes of the osseous structures throughout. The bowel pattern is nonobstructive. IMPRESSION: 1. A calcification previously described at the level of L4 on the left is not identified at that site. It potentially has moved distally to the level of the left mid sacrum The above report was generated using voice recognition software. It may contain grammatical, syntax or spelling errors. Electronically signed by: Tolu Orta M.D. 05/22/2017 9:57 AM Dictated Date/Time: 05/22/2017 9:56 AM
[2017-05-22] MEDS ORDERED: ONDANSETRON INJ 2 MG/ML 2 ML VIAL IV ONE (11:31)
[2017-05-22] MEDS ORDERED: FENTANYL CITRATE INJ 50 MCG/1 ML 2 ML VIAL IV PRN (11:45)
[2017-05-22] MEDS ORDERED: ATROPINE SULFATE 0.1 MG/ML 5ML SYR IV PRN (11:45)
[2017-05-22] MEDS ORDERED: EpHEDrine SULFATE INJ 50 MG/ML AMP IV PRN (11:45)
--- NOTE | 2017-05-22 11:49 | History & Physical Bridge Note ---
H&P Re-Evaluation Bridge Note: I have examined the patient, reviewed the History & Physical and in the interval since the performance of the History & Physical I have noted the following changes of clinical significance: No changes noted Left Stent and Retrograde by cystoscopy
[2017-05-22] MEDS ORDERED: CIPROFLOXACIN 400MG / 200ML D5W ONE (11:56)
--- NOTE | 2017-05-22 11:57 | Cardiology Consultation ---
Cardiology Consultation Date of Consultation: May 22, 2017 History of Present Illness Patient is a 82 year old male seen in cardiology consultation per the request of Marjorie Campbell PA-C for preoperative cardiology evaluation prior to cystoscopy and planned ureteral stenting for symptomatic 4 mm left ureter stone. The patient follows with Dr. Vivek Nassar of our practice with most recent outpatient visit having been in November,. He is physically active. He golfs routinely during the summer and is looking forward to his golf season. On Monday he had been performing yard work at both his home and his daughter's home with no symptoms of chest discomfort or shortness of breath. His most recent significant medical problems have been with vision problems in his left eye for which she had recently undergone a procedure for treatment of left-sided glaucoma which she tolerated well from a cardiac perspective. The patient presented to the emergency room in the medical reviewer hours of 05/21/17 with left sided flank pain that woke him up from sleep. Evaluation has led to the diagnosis of a left ureter stone. His symptoms have not resolved with conservative therapy and therefore cystoscopy and ureteral stenting is planned. Past Medical/Surgical History Problem List: Medical Problems: (1) Benign prostatic hyperplasia (2) Cataract (3) Coronary artery disease (4) Diverticular disease of colon (5) Dyslipidemia (6) Glaucoma (7) History of peptic ulcer disease (8) History of urinary calculi (9) Hypertension (10) Hypothyroidism Surgical Problems: (1) Hx of CABG (2) Hx of cholecystectomy History Past Medical History: 1. Coronary heart disease status post coronary artery bypass grafting 5 with TAVAREZ to LAD, saphenous vein grafts to the ramus, obtuse marginal, diagonal, and PDA, in 2001 2. Dyslipidemia with history of statin intolerance 3. Hypothyroidism 4. History of gastric ulcer disease 5. Moderate asymptomatic right internal carotid artery stenosis with 50-69% stenosis of the right internal carotid artery and less than 50% stenosis of the left internal carotid artery on duplex performed 12/14/2016 Past Surgical History: 1. CABG in 2001 2. 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 He lives with his spouse who accompanies him at the bedside, and his daughter Tracey, also accompanies him Is a non-smoker Family History: History of pneumoconiosis and father. There is a family history of coronary heart disease in his brother Review Of Systems 10 point review of systems is reviewed and is negative with the exception of elevation in his left eye and right eye due to issues with glaucoma. And recent left flank pain. Allergies Coded Allergies: Atorvastatin (Unverified Adverse Reaction, Unknown, MUSCLE CRAMPS, 05/21/17 ) Simvastatin (Unverified Adverse Reaction, Unknown, MUSCLE CRAMPS, 05/21/17) Medications Reported Home Medications Medications Dose Route/Sig Max Daily Dose Days Date Category Dose Instructions Lopressor (Metoprolol Tartrate) 100 Mg Tab 50 Mg PO DAILY 05/21/17 Reported 1/2 pill (50 mg) daily Levothyroxine Sodium 25 Mcg Tab 25 Mcg PO QAM 11/25/14 Reported Multivitamin (Multivitamins) Tab 1 Tab PO QAM 07/18/09 Reported Ecotrin Or Generic * (Aspirin) 81 Mg Ectab 81 Mg PO QAM 07/23/07 Reported Zetia (Ezetimibe) 10 Mg Tab 10 Mg PO QPM 07/23/07 Reported Physical Exam Vital Signs (Last 8hrs): Last 8 Hrs Date Time Temp Pulse Resp B/P (MAP) Pulse Ox O2 Delivery O2 Flow Rate FiO2 05/22/17 08:13 80 141/72 05/22/17 08:09 36.8 78 17 119/67 (84) 92 Room Air 05/22/17 08:00 95 Room Air 05/22/17 05:07 36.7 70 20 126/73 (90) 95 Nasal Cannula 2.0 05/22/17 04:10 Nasal Cannula 2.0 General Appearance: Alert and Oriented x3. NAD. Head: Normocephalic Atraumatic. Eyes: PERRLA, EOMI, conjunctiva and sclera clear Neck: Supple. No carotid bruits noted. No JVD. No HJD. Respiratory: Breath sounds clear to auscultation bilaterally. No w/r/r. Cardiovascular: Reg rate and rhythm. S1 and S2 noted. No murmurs, rubs, gallops. PMI non displace. Abdomen: Normal bowel sounds, soft nontender. no abdominal bruits. Extremities: No edema, no clubbing or cyanosis. distal pulses 2/4 bilaterally. Neuro: No focal deficits. Psychiatric: Normal affect. Data Last 24 Hours Test 05/21/17 18:30 05/22/17 07:13 Urine Color AUDREY Urine Appearance CLEAR Urine pH 5.0 Urine Specific [place] >= 1.030 Urine Protein TRACE Urine Glucose (UA) NEG Urine Ketones NEG Urine Occult Blood 3+ Urine Nitrite NEG Urine Bilirubin NEG Urine Urobilinogen NEG Urine Leukocyte Esterase NEG Urine RBC >30 /hpf Urine WBC 1-5 /hpf Urine Epithelial Cells 5-10 /lpf Urine Bacteria NEG Urine Hyaline Casts 5-10 /lpf Urine Mucus PRESENT White Blood Count 10.11 K/uL Red Blood Count 3.79 M/uL Hemoglobin 11.7 g/dL Hematocrit 35.2 % Mean Corpuscular Volume 92.9 fL Mean Corpuscular Hemoglobin 30.9 pg Mean Corpuscular Hemoglobin Concent 33.2 g/dl RDW Standard Deviation 52.6 fL RDW Coefficient of Variation 15.3 % Platelet Count 114 K/uL Mean Platelet Volume 9.4 fL Sodium Level 143 mmol/L Potassium Level 4.3 mmol/L Chloride Level 110 mmol/L Carbon Dioxide Level 27 mmol/L Anion Gap 6.0 mmol/L Blood Urea Nitrogen 18 mg/dl Creatinine 1.96 mg/dl Est Creatinine Clear Calc Drug Dose 35.9 ml/min Estimated GFR () 36.4 Estimated GFR (Non- 31.4 BUN/Creatinine Ratio 9.3 Random Glucose 114 mg/dl Calcium Level 8.1 mg/dl EKG performed on presentation dated 05/21/17 and reviewed independently: Sinus rhythm at 60 bpm, possible age-indeterminate inferior infarction pattern with Q waves in leads III and aVF. Compared to his outpatient tracings, he has had intermittent findings of inferior infarction in the past, although not present on his most recent tracing in November 2016 Assessment & Plan Impression: 82-year-old male 1. Symptomatic left ureter stone with proposed cystoscopy, stent placed 2. Stable chronic coronary heart disease, remote CABG in 2001 Discussion/recommendations: The patient describes stable cardiac signs and symptoms. He is physically active he performs activities such as golfing, walks in stores, and it actually performed yardwork a few days ago prior to his hospitalization with no symptoms suggestive of angina. His EKG is without any acute changes. His most recent Exercise Stress Echocardiogram was performed in July 2013 at which time he demonstrated above average exercise capacity for his age completing a peak workload equivalent to 10 metabolic equivalents. His ejection fraction was normal at rest, 50-59%. Mild mitral regurgitation and trace tricuspid regurgitation were present at that time without any evidence of aortic valve stenosis. He is stable from a cardiac perspective to proceed with cystoscopy with an estimated low risk of perioperative cardiac complication. I discussed this at length with the patient, spouse, and his daughter.
[2017-05-22] MEDS ORDERED: Cysto-Conray II 17.2% 250ML BOTTLE ONE (12:28)
[2017-05-22] MEDS ORDERED: MIDAZOLAM HCL 1 MG/ML 2ML VIAL ONE (12:30)
[2017-05-22] MEDS ORDERED: FENTANYL CITRATE INJ 50 MCG/1 ML 2 ML VIAL ONE (12:31)
[2017-05-22] MEDS ORDERED: LIDOCAINE HCL 2% 2 ML VIAL (20MG/ML) ONE ×2 (12:32)
[2017-05-22] MEDS ORDERED: ONDANSETRON INJ 2 MG/ML 2 ML VIAL ONE (12:32)
[2017-05-22] MEDS ORDERED: PROPOFOL IV EMULSION 10 MG/ML 20 ML VIAL IV ONE (12:32)
--- NOTE | 2017-05-22 13:17 | [facility] Operative Report ---
Operative Report Operative Date May 22, 2017. Pre-Operative Diagnosis Obs Left Mid ureteral stone Post-Operative Diagnosis Same, Severe Obstruction secondary to prostate enlargement Procedure(s) Performed Cystoscopy with Left Retrograde pyelogram and stent placement Surgeon Jaxon Estimated Blood Loss Minimal Findings Left Obstructing stone. Severe enlargement of prostate Specimens Urine left kidney Drains 6 Fr Multilength. 18 Fr Mota Anesthesia Type MAC Complication(s) none Disposition Recovery Room / PACU Indications Obstructing stone with severe colic and nausea and vomiting. Description of Procedure Patient was consented and brought back to the operating room. Patient was placed under anesthesia in the supine position and moved to the dorsal lithotomy position. Patient was prepped and draped in the regular sterile fashion. A time out was completed. A 30degree Cystoscope was placed into the bladder and the entire bladder was examined. The UO's were identified. Of note, patient had severe enlargement of the prostate with very large adenoma on the left which limited mobility. Images were captured. The left was cannulized with a catheter, an aspiration completed, and a retrograde pyelogram was completed. A wire was then placed. With the wire in place, a 6 Fr Multilength Double J stent was placed. It was confirmed with fluoroscopy. With the stent in place, The scope was removed. A 18 Fr [place] catheter was placed over a wire and the bladder was emptied. The patient was cleaned, aroused from anesthesia, and transferred to the pacu in stable condition having tolerated the procedure well with no complications. I was present and participated in all aspects of the procedure. The patient will be monitored in the PACU until transferred. I attest to the content of the Intraoperative Record and any orders documented therein. Any exceptions are noted below.
--- NOTE | 2017-05-22 13:31 | DIAGNOSTIC IMAGING REPORT ---
RETROGRADE INCLUDES KUB CLINICAL HISTORY: 82 years-old Male presenting with LT CYSTO/LASER/STENT. TECHNIQUE: 5 fluoroscopic image(s) recorded as part of an intraoperative procedure. COMPARISON: Plain radiograph from 05/22/2017 at 9:18 AM. FINDINGS/IMPRESSION: A cystoscope projects over the bladder. A catheter was introduced into the left ureter. Subsequently, a left ureteral stent was placed. Please see surgical report for further details. Dose area product (mGy.cm^2): 1616.1. Fluoroscopy time: 19.5 seconds. Number of fluoroscopic spot images: 0. Electronically signed by: Morro Matson M.D. 05/22/2017 1:29 PM Dictated Date/Time: 05/22/2017 1:28 PM
--- NOTE | 2017-05-22 13:34 | Anesthesiology Progress Note ---
Anesthesia Post Op Note Date & Time May 22, 2017 at 13:33 Vital Signs Pain Intensity: 8.0 Vital Signs Past 12 Hours Date Time Temp Pulse Resp B/P (MAP) Pulse Ox O2 Delivery O2 Flow Rate FiO2 05/22/17 11:48 36.7 67 18 129/76 (93) 90 05/22/17 08:13 80 141/72 05/22/17 08:09 36.8 78 17 119/67 (84) 92 Room Air 05/22/17 08:00 95 Room Air 05/22/17 05:07 36.7 70 20 126/73 (90) 95 Nasal Cannula 2.0 05/22/17 04:10 Nasal Cannula 2.0 Notes Mental Status: alert / awake / arousable, participated in evaluation Pt Amnestic to Procedure: Yes Nausea / Vomiting: adequately controlled Pain: adequately controlled Airway Patency, RR, SpO2: stable & adequate BP & HR: stable & adequate Hydration State: stable & adequate Anesthetic Complications: no major complications apparent
--- NOTE | 2017-05-22 20:01 | Progress Note ---
Medicine Progress Note Date & Time of Visit: May 22, 2017 at 11:20 . Subjective CC: Follow-up visit for left ureteral stone. HPI: No fever. Persistent left flank pain. Persistent nausea. No dysuria or hematuria. Scheduled for cystoscopy with stent placement today ROS: General- no fever, no chills Resp- no cough; no shortness of breath Cardiac- no chest pain GI- as noted above in HPI - .as noted above in HPI . Objective Last 8 Hrs Date Time Temp Pulse Resp B/P (MAP) Pulse Ox O2 Delivery O2 Flow Rate FiO2 05/22/17 19:56 72 145/75 05/22/17 19:42 36.7 70 20 122/66 (84) 96 05/22/17 17:51 36.8 76 20 144/73 (96) 96 Nasal Cannula 3.0 05/22/17 16:51 36.3 70 20 140/77 (98) 96 05/22/17 16:20 36.9 66 20 128/73 (91) 95 05/22/17 16:00 Nasal Cannula 2.0 05/22/17 15:45 36.6 66 20 154/76 (102) 90 05/22/17 15:20 36.5 66 20 127/67 (87) 90 05/22/17 14:38 36.7 18 132/70 (90) 93 Nasal Cannula 2.0 05/22/17 14:35 36.6 66 20 154/76 (102) 90 05/22/17 14:17 36.5 66 20 127/67 (87) 90 05/22/17 14:06 36.6 76 20 127/68 (87) 90 Nasal Cannula 05/22/17 14:06 93 Nasal Cannula 2.0 05/22/17 13:41 36.8 70 22 128/63 (83) 93 Nasal Cannula 2 05/22/17 13:36 129/70 05/22/17 13:34 68 14 05/22/17 13:34 67 14 93 05/22/17 13:33 131/70 05/22/17 13:31 128/70 05/22/17 13:29 70 14 05/22/17 13:29 69 14 92 05/22/17 13:26 122/68 05/22/17 13:25 129/69 05/22/17 13:24 36.8 69 12 131/70 (89) 95 Nasal Cannula 2 05/22/17 13:24 72 21 05/22/17 13:24 73 21 88 Physical Exam: General-[] Eyes-[] ENT-[] Neck-[] Lungs-[] Heart-[] Abdomen-[] Extremities-[] Neuro-[] Laboratory Results: Last 24 Hours Test 05/22/17 07:13 White Blood Count 10.11 K/uL Red Blood Count 3.79 M/uL Hemoglobin 11.7 g/dL Hematocrit 35.2 % Mean Corpuscular Volume 92.9 fL Mean Corpuscular Hemoglobin 30.9 pg Mean Corpuscular Hemoglobin Concent 33.2 g/dl RDW Standard Deviation 52.6 fL RDW Coefficient of Variation 15.3 % Platelet Count 114 K/uL Mean Platelet Volume 9.4 fL Sodium Level 143 mmol/L Potassium Level 4.3 mmol/L Chloride Level 110 mmol/L Carbon Dioxide Level 27 mmol/L Anion Gap 6.0 mmol/L Blood Urea Nitrogen 18 mg/dl Creatinine 1.96 mg/dl Est Creatinine Clear Calc Drug Dose 35.9 ml/min Estimated GFR () 36.4 Estimated GFR (Non- 31.4 BUN/Creatinine Ratio 9.3 Random Glucose 114 mg/dl Calcium Level 8.1 mg/dl Date/Time Source Procedure Growth Status 05/22/17 13:10 Urine , Kidney Left Gram Stain Pending Received 05/22/17 13:10 Urine , Kidney Left Bacterial Culture Pending Received Assessment & Plan LEFT URETERAL CALCULUS WITH HYDRONEPHROSIS CT demonstrated left ureteral calculus with hydronephrosis. UA showed many RBCs, 1-5 WBCs, no bacteria. Afebrile. IV fluids, analgesics, anti-emetics, tamsulosin. Strain urine. Urology consulted. Cystoscopy with stent placement scheduled for today. ACUTE KIDNEY INJURY Serum creatinine mary alice from 1.4 on admission to 1.96 today. Acute kidney injury probably secondary to left ureteral obstruction and hydronephrosis. Should improve with stent placement. Avoid NSAID's. Follow. CORONARY ARTERY DISEASE History of CAD, s/p CABG. No recent anginal symptoms. Unable to take oral metoprolol at this time due to N & V. IV metoprolol until able to resume oral meds. Resume aspirin when able. HYPERTENSION IV metoprolol until able to resume oral meds. Follow and titrate Rx. VTE PROPHYLAXIS SQ heparin ordered; patient declined. SCD's. Ambulate. RESUSCITATION STATUS Full code as documented in admission H&P. DISPOSITION Expected discharge to home. Internal Medicine follow-up with Dr. Gin Ledesma. Urology follow-up with ANDREW. . Current Inpatient Medications: Current Inpatient Medications Medications (Trade) Dose Ordered Sig/Juan Route Start Time Stop Time Status Last Admin Dose Admin Acetaminophen (Tylenol Tab) 650 mg Q4H PRN PO 05/21/17 08:30 06/20/17 08:29 Ondansetron HCl (Zofran Inj) 4 mg Q6H PRN IV 05/21/17 08:30 06/20/17 08:29 05/22/17 09:05 4 MG Tamsulosin HCl (Flomax Cap) 0.4 mg BID PO 05/21/17 21:00 06/20/17 20:59 05/22/17 19:53 0.4 MG Metoprolol Tartrate (Lopressor Iv) 5 mg BID IV. 05/21/17 21:00 06/20/17 20:59 05/22/17 19:56 5 MG Dextrose/Lactated Ringer's 1,000 ml @ 125 mls/hr Q8H IV 05/21/17 09:15 06/20/17 09:14 05/22/17 19:52 125 MLS/HR Hydromorphone HCl (Dilaudid Inj) 0.5 mg for moderate pain (5... Q2H PRN IV 05/21/17 09:15 06/04/17 09:14 05/22/17 19:53 0.5 MG Lorazepam 0.5 mg/ Syringe 1 ml @ 0.5 mls/min Q6H PRN IV 05/21/17 09:15 06/20/17 09:14 05/21/17 12:34 0.5 MLS/MIN
[2017-05-23] VITALS (12 sets, daily range): BP systolic 109–152; BP diastolic 54–82; PULSE 78–91; TEMP 36.6–37.6; O2SAT 90–93
[2017-05-23] MEDS: D5W AND LACTATED RINGERS 1,000 ML IV SCH ×2 (00:43→08:02)
[2017-05-23] MEDS: HYDROmorphone INJ 0.5 MG/0.5 ML SYR IV PRN ×2 (03:59→15:35)
[2017-05-23 07:02] LABS: HEMOGLOBIN 13.2 g/dL (14.0-18.0); MEAN CELL VOLUME 94.3 fL (80-100); MEAN CORPUSCULAR HEMOGLOBIN 31.1 pg (25-34); MEAN PLATELET VOLUME 10.3 fL (7.4-10.4); PLATELET COUNT 126 K/uL (130-400); RED CELL DISTRIBUTION WIDTH CV 15.3 % (11.5-14.5); RED CELL DISTRIBUTION WIDTH SD 52.4 fL (36.4-46.3); WHITE BLOOD COUNT 11.76 K/uL (4.8-10.8)
[2017-05-23 07:35] LABS: CALCIUM 8.3 mg/dl (8.5-10.1); CREATININE 1.44 mg/dl (0.60-1.40); POTASSIUM 3.4 mmol/L (3.5-5.1)
--- NOTE | 2017-05-23 07:46 | Anesthesiology Progress Note ---
Anesthesia Post Op Note Date & Time May 23, 2017 at 07:46 Vital Signs Vital Signs Past 12 Hours Date Time Temp Pulse Resp B/P (MAP) Pulse Ox O2 Delivery O2 Flow Rate FiO2 05/23/17 07:12 37.6 87 16 117/54 (75) 90 Nasal Cannula 3.0 05/23/17 04:08 37.0 87 20 130/68 (88) 91 Room Air 05/23/17 04:00 Room Air 05/23/17 00:00 Room Air 05/23/17 00:00 37.4 78 20 112/55 (74) 92 Room Air 05/22/17 20:00 Room Air 05/22/17 19:56 72 145/75 Notes Mental Status: alert / awake / arousable, participated in evaluation Pt Amnestic to Procedure: Yes Nausea / Vomiting: adequately controlled Pain: adequately controlled Airway Patency, RR, SpO2: stable & adequate BP & HR: stable & adequate Hydration State: stable & adequate Anesthetic Complications: no major complications apparent
[2017-05-23] MEDS: TAMSULOSIN HCL 0.4 MG CAP PO SCH ×2 (08:02→20:45)
[2017-05-23] MEDS: METOPROLOL TARTRATE 50 MG TAB PO SCH (08:04)
--- NOTE | 2017-05-23 09:35 | Progress Note ---
Subjective Date of Service: May 23, 2017. Subjective Pt evaluation today including: conversation w/ patient, chart review, lab review Voiding: lowry catheter in place (patent, draining light [place] colored urine ) 82 yo male s/p left ureteral stent placement for left ureteral stone with colic. Pt reports pain improved since stent placement. Only c/o some left flank pain earlier this morning with voiding into the catheter. Denies n/v. Cr has improved since stent placement to 1.44 today from 1.96 yesterday. Slight increase in white count to 11.76. Noted to have a low grade temperature of 37.6C this morning. UC&S pending. Culture from left kidney noted to be negative. Problem List Medical Problems: (1) Dehydration Status: Acute (2) Left ureteral calculus Status: Acute Review of Systems Constitutional: No fever, No chills Respiratory: No shortness of breath Cardiac: No chest pain Abdomen: No pain, No nausea, No vomiting Male : No dysuria, No hematuria Heme: No abnormal bleeding/bruising Objective Vital Signs Date Time Temp Pulse Resp B/P (MAP) Pulse Ox O2 Delivery O2 Flow Rate FiO2 05/23/17 08:00 Room Air 05/23/17 07:12 37.6 87 16 117/54 (75) 90 Nasal Cannula 3.0 05/23/17 04:08 37.0 87 20 130/68 (88) 91 Room Air 05/23/17 04:00 Room Air 05/23/17 00:00 Room Air 05/23/17 00:00 37.4 78 20 112/55 (74) 92 Room Air 05/22/17 20:00 Room Air 05/22/17 19:56 72 145/75 05/22/17 19:42 36.7 70 20 122/66 (84) 96 05/22/17 17:51 36.8 76 20 144/73 (96) 96 Nasal Cannula 3.0 05/22/17 16:51 36.3 70 20 140/77 (98) 96 05/22/17 16:20 36.9 66 20 128/73 (91) 95 05/22/17 16:00 Nasal Cannula 2.0 05/22/17 15:45 36.6 66 20 154/76 (102) 90 05/22/17 15:20 36.5 66 20 127/67 (87) 90 05/22/17 14:38 36.7 18 132/70 (90) 93 Nasal Cannula 2.0 05/22/17 14:35 36.6 66 20 154/76 (102) 90 05/22/17 14:17 36.5 66 20 127/67 (87) 90 05/22/17 14:06 36.6 76 20 127/68 (87) 90 Nasal Cannula 05/22/17 14:06 93 Nasal Cannula 2.0 05/22/17 13:41 36.8 70 22 128/63 (83) 93 Nasal Cannula 2 05/22/17 13:36 129/70 05/22/17 13:34 68 14 05/22/17 13:34 67 14 93 05/22/17 13:33 131/70 05/22/17 13:31 128/70 05/22/17 13:29 70 14 05/22/17 13:29 69 14 92 05/22/17 13:26 122/68 05/22/17 13:25 129/69 05/22/17 13:24 36.8 69 12 131/70 (89) 95 Nasal Cannula 2 05/22/17 13:24 72 21 05/22/17 13:24 73 21 88 05/22/17 11:48 36.7 67 18 129/76 (93) 90 Physical Exam General Appearance: no apparent distress Eyes: normal inspection ENT: hearing grossly normal Neck: no JVD Respiratory/Chest: no respiratory distress, no accessory muscle use Cardiovascular: no JVD Extremities: normal inspection Neurologic/Psychiatric: alert, normal mood/affect, oriented x 3 Skin: normal color Laboratory Results Last 24 Hours Test 05/23/17 06:26 White Blood Count 11.76 K/uL Red Blood Count 4.24 M/uL Hemoglobin 13.2 g/dL Hematocrit 40.0 % Mean Corpuscular Volume 94.3 fL Mean Corpuscular Hemoglobin 31.1 pg Mean Corpuscular Hemoglobin Concent 33.0 g/dl RDW Standard Deviation 52.4 fL RDW Coefficient of Variation 15.3 % Platelet Count 126 K/uL Mean Platelet Volume 10.3 fL Sodium Level 139 mmol/L Potassium Level 3.4 mmol/L Chloride Level 105 mmol/L Carbon Dioxide Level 25 mmol/L Anion Gap 9.0 mmol/L Blood Urea Nitrogen 11 mg/dl Creatinine 1.44 mg/dl Est Creatinine Clear Calc Drug Dose 48.7 ml/min Estimated GFR () 52.8 Estimated GFR (Non- 45.5 BUN/Creatinine Ratio 7.6 Random Glucose 146 mg/dl Calcium Level 8.3 mg/dl Assessment and Plan POD #1 s/p left ureteral stent placement for left ureteral stone Pt doing well post-op. Will d/c lowry catheter and do a TOV this AM. Possible d/c home later today vs tomorrow per primary service. Recommend d/c home on 5 days of Cipro. Will plan for definitive stone management as an outpatient. Will arrange for f/ u with Dr. Coates in 1 week to discuss.
--- NOTE | 2017-05-23 09:38 | Medical Student: [facility] ---
Med Student Progress Note Date of Service May 23, 2017. Subjective Pt evaluation today including: conversation w/ patient, physical exam, lab review, review of studies, review of inpatient medication list Pain: 0 PO Intake: good Voiding: lowry catheter in place Mr. Barnhart is a 82y M with a 4mm mid-ureteral obstructing stone, POD #1 cystoscopy and L ureteral stent placement. Patient states he is feeling better, denies abdominal pain, nausea and vomitting. Tolerating the stent, having some expected discomfort with voiding into catheter. Cr improved from 1.96 to 1.44 today. WBC slightly elevated, low grade fever Review of Systems Constitutional: No fever, No chills Respiratory: No cough, No shortness of breath, No dyspnea on exertion Cardiac: No chest pain, No orthopnea Abdomen: + problem reported (some discomfort with bending movments, stent in place), No pain, No nausea, No vomiting Endo: No fatigue Objective Vital Signs Date Time Temp Pulse Resp B/P (MAP) Pulse Ox O2 Delivery O2 Flow Rate FiO2 05/23/17 07:12 37.6 87 16 117/54 (75) 90 Nasal Cannula 3.0 05/23/17 04:08 37.0 87 20 130/68 (88) 91 Room Air 05/23/17 04:00 Room Air 05/23/17 00:00 Room Air 05/23/17 00:00 37.4 78 20 112/55 (74) 92 Room Air 05/22/17 20:00 Room Air 05/22/17 19:56 72 145/75 05/22/17 19:42 36.7 70 20 122/66 (84) 96 05/22/17 17:51 36.8 76 20 144/73 (96) 96 Nasal Cannula 3.0 05/22/17 16:51 36.3 70 20 140/77 (98) 96 05/22/17 16:20 36.9 66 20 128/73 (91) 95 05/22/17 16:00 Nasal Cannula 2.0 05/22/17 15:45 36.6 66 20 154/76 (102) 90 05/22/17 15:20 36.5 66 20 127/67 (87) 90 05/22/17 14:38 36.7 18 132/70 (90) 93 Nasal Cannula 2.0 05/22/17 14:35 36.6 66 20 154/76 (102) 90 05/22/17 14:17 36.5 66 20 127/67 (87) 90 05/22/17 14:06 36.6 76 20 127/68 (87) 90 Nasal Cannula 05/22/17 14:06 93 Nasal Cannula 2.0 05/22/17 13:41 36.8 70 22 128/63 (83) 93 Nasal Cannula 2 05/22/17 13:36 129/70 05/22/17 13:34 68 14 05/22/17 13:34 67 14 93 05/22/17 13:33 131/70 05/22/17 13:31 128/70 05/22/17 13:29 70 14 05/22/17 13:29 69 14 92 05/22/17 13:26 122/68 05/22/17 13:25 129/69 05/22/17 13:24 36.8 69 12 131/70 (89) 95 Nasal Cannula 2 05/22/17 13:24 72 21 05/22/17 13:24 73 21 88 05/22/17 11:48 36.7 67 18 129/76 (93) 90 Physical Exam General Appearance: WD/WN, no apparent distress ENT: hearing grossly normal Respiratory/Chest: normal breath sounds, no respiratory distress Abdomen: soft, + pertinent finding (Lowry intact, draining light [place] urine, minimal clots) Neurologic/Psychiatric: alert, normal mood/affect, oriented x 3 Skin: warm/dry, no rash Lymphatic: no adenopathy Laboratory Results Last 24 Hours Test 05/23/17 06:26 White Blood Count 11.76 K/uL Red Blood Count 4.24 M/uL Hemoglobin 13.2 g/dL Hematocrit 40.0 % Mean Corpuscular Volume 94.3 fL Mean Corpuscular Hemoglobin 31.1 pg Mean Corpuscular Hemoglobin Concent 33.0 g/dl RDW Standard Deviation 52.4 fL RDW Coefficient of Variation 15.3 % Platelet Count 126 K/uL Mean Platelet Volume 10.3 fL Sodium Level 139 mmol/L Potassium Level 3.4 mmol/L Chloride Level 105 mmol/L Carbon Dioxide Level 25 mmol/L Anion Gap 9.0 mmol/L Blood Urea Nitrogen 11 mg/dl Creatinine 1.44 mg/dl Est Creatinine Clear Calc Drug Dose 48.7 ml/min Estimated GFR () 52.8 Estimated GFR (Non- 45.5 BUN/Creatinine Ratio 7.6 Random Glucose 146 mg/dl Calcium Level 8.3 mg/dl Assessment and Plan Assessment and Plan: A/P: 4mm obstructing left mid-ureteral stone. POD #1 cystoscopy and L ureteral stent placement. APVSS: Patient doing well, tolerating PO and Cr improving. Expected discomfort with movement from stent, patient reports pain improved from prior to stent. Lowry draining well, light [place] urine. Okay to d/c lowry today with TOV. Slightly elevated WBC and low grade fever (37.6C this am), plan for course of antibiotic. Followup with Dr. Coates in office next week to discuss options for definitive stone management. Repeat KUB in 1 week, prior to followup with Dr. Coates.
--- NOTE | 2017-05-23 13:08 | Cardiology Follow-Up ---
Subjective General Date of Service: May 23, 2017. Chief Complaint: follow up chronic CAD Pt evaluation today including: conversation w/ patient, physical exam History of Present Illness The patient is a 82 year old male seen in follow up. Patient feeling well. Mota removed this am, and just voided on his own. No gross hematuria. Allergies Coded Allergies: Atorvastatin (Unverified Adverse Reaction, Unknown, MUSCLE CRAMPS, 05/21/17 ) Simvastatin (Unverified Adverse Reaction, Unknown, MUSCLE CRAMPS, 05/21/17) Social History Smoking Status: Never Smoker Hx Tobacco Use In Past Year?: No Hx Alcohol Use - Type And Amou: No Hx Substance Use - Type And Am: No Problem List Medical Problems: (1) Dehydration Status: Acute (2) Left ureteral calculus Status: Acute Physical Exam Vital Signs Last Vital Signs Documentation Date Time Temp Pulse Resp B/P (MAP) Pulse Ox O2 Delivery O2 Flow Rate FiO2 05/23/17 12:25 91 3.0 05/23/17 12:15 36.6 84 18 131/66 (87) 05/23/17 08:00 Room Air Physical Exam Constitutional: Level of Distress: NAD Neck: supple Lungs: Auscultation: no wheezing, no rales/crackles Cardiovascular: Heart Auscultation: RRR, no murmurs, no rubs, no gallops Extremities: no edema Neurologic: Gait & Station: pertinent finding Assessment and Plan Assessment and Plan Impression: s/p left ureteral stent placement for left ureteral stone Stable chronic CAD Plan: Telemetry reveals stable SR. No symptoms to suggest angina. Stable from cardiac perspective on home medications. Laboratory Results Last 24 Hours Test 05/23/17 06:26 White Blood Count 11.76 K/uL Red Blood Count 4.24 M/uL Hemoglobin 13.2 g/dL Hematocrit 40.0 % Mean Corpuscular Volume 94.3 fL Mean Corpuscular Hemoglobin 31.1 pg Mean Corpuscular Hemoglobin Concent 33.0 g/dl RDW Standard Deviation 52.4 fL RDW Coefficient of Variation 15.3 % Platelet Count 126 K/uL Mean Platelet Volume 10.3 fL Sodium Level 139 mmol/L Potassium Level 3.4 mmol/L Chloride Level 105 mmol/L Carbon Dioxide Level 25 mmol/L Anion Gap 9.0 mmol/L Blood Urea Nitrogen 11 mg/dl Creatinine 1.44 mg/dl Est Creatinine Clear Calc Drug Dose 48.7 ml/min Estimated GFR () 52.8 Estimated GFR (Non- 45.5 BUN/Creatinine Ratio 7.6 Random Glucose 146 mg/dl Calcium Level 8.3 mg/dl
[2017-05-23] MEDS ORDERED: POTASSIUM CHLORIDE 20 MEQ TABCR PO ONE (15:00)
[2017-05-23] MEDS ORDERED: FUROSEMIDE INJ 20 MG in SYRINGE 0 ML IV ONE (15:00)
--- NOTE | 2017-05-23 17:38 | Progress Note ---
Medicine Progress Note Date & Time of Visit: May 23, 2017 at ~ 14:30 . Subjective CC: Follow-up visit for ureteral calculus and other problems. HPI: Mota catheter removed this morning. Voiding without difficulty. Hematuria less intense. Flank pain much better. No further nausea or vomiting. No diarrhea. ROS: General- no fever Resp- no cough; no shortness of breath Cardiac- no chest pain, no edema GI- as noted above in HPI - as noted above in HPI . Objective Last 8 Hrs Date Time Temp Pulse Resp B/P (MAP) Pulse Ox O2 Delivery O2 Flow Rate FiO2 05/23/17 16:00 93 Nasal Cannula 4.0 05/23/17 15:32 36.9 79 18 152/82 (105) 92 Room Air 05/23/17 12:25 91 3.0 05/23/17 12:15 36.6 84 18 131/66 (87) 05/23/17 12:00 Room Air Physical Exam: General- no distress Lungs- clear to auscultation; no respiratory distress Cardiovascular- RRR; no gallop; no JVD; no pretibial edema Abdomen- + bowel sounds, soft, nontender Back- minimal left flank pain Extremities- no cyanosis; no calf tenderness Neuro- alert, oriented Skin- warm & dry . Laboratory Results: Last 24 Hours Test 05/23/17 06:26 White Blood Count 11.76 K/uL Red Blood Count 4.24 M/uL Hemoglobin 13.2 g/dL Hematocrit 40.0 % Mean Corpuscular Volume 94.3 fL Mean Corpuscular Hemoglobin 31.1 pg Mean Corpuscular Hemoglobin Concent 33.0 g/dl RDW Standard Deviation 52.4 fL RDW Coefficient of Variation 15.3 % Platelet Count 126 K/uL Mean Platelet Volume 10.3 fL Sodium Level 139 mmol/L Potassium Level 3.4 mmol/L Chloride Level 105 mmol/L Carbon Dioxide Level 25 mmol/L Anion Gap 9.0 mmol/L Blood Urea Nitrogen 11 mg/dl Creatinine 1.44 mg/dl Est Creatinine Clear Calc Drug Dose 48.7 ml/min Estimated GFR () 52.8 Estimated GFR (Non- 45.5 BUN/Creatinine Ratio 7.6 Random Glucose 146 mg/dl Calcium Level 8.3 mg/dl Date/Time Source Procedure Growth Status 05/22/17 21:30 Urine , Clean Catch Urine Culture - Preliminary NO GROWTH - LESS THAN 1,000 COLONIES/... Resulted Assessment & Plan LEFT URETERAL CALCULUS WITH HYDRONEPHROSIS CT demonstrated left ureteral calculus with hydronephrosis. UA showed many RBCs, 1-5 WBCs, no bacteria. Afebrile. IV fluids, analgesics, anti-emetics, tamsulosin. Urology consulted. Cystoscopy with stent placement performed by Urology. Mota catheter removed this morning. Hematuria less intense. ACUTE KIDNEY INJURY Serum creatinine mary alice from 1.4 on admission to 1.96 05/22.. Acute kidney injury probably secondary to left ureteral obstruction and hydronephrosis. Creatinine today 1.44. Avoid NSAID's. Follow. CORONARY ARTERY DISEASE History of CAD, s/p CABG. No recent anginal symptoms. Unable to take oral metoprolol at time of admission due to N & V; received IV metoprolol until able to resume oral meds. Resume aspirin. HYPERTENSION Continue metoprolol. Follow and titrate Rx. HYPOXIA O2 sats as low as mid 80s on room air this afternoon. Sats quickly rise to the 90s after a few deep breaths. Hypoxia probably mostly secondary to atelectasis, perhaps with a component of mild fluid overload. Incentive spirometry. Stop IV fluids. IV furosemide 20 mg x 1. VTE PROPHYLAXIS SQ heparin ordered; patient declined. SCD's. Ambulate. RESUSCITATION STATUS Full code as documented in admission H&P. DISPOSITION Expected discharge to home. Internal Medicine follow-up with Dr. Gin Ledesma. Urology follow-up with ANDREW. . Current Inpatient Medications: Current Inpatient Medications Medications (Trade) Dose Ordered Sig/Juan Route Start Time Stop Time Status Last Admin Dose Admin Acetaminophen (Tylenol Tab) 650 mg Q4H PRN PO 05/21/17 08:30 06/20/17 08:29 Ondansetron HCl (Zofran Inj) 4 mg Q6H PRN IV 05/21/17 08:30 06/20/17 08:29 05/22/17 09:05 4 MG Tamsulosin HCl (Flomax Cap) 0.4 mg BID PO 05/21/17 21:00 06/20/17 20:59 05/23/17 08:02 0.4 MG Hydromorphone HCl (Dilaudid Inj) 0.5 mg for moderate pain (5... Q2H PRN IV 05/21/17 09:15 06/04/17 09:14 05/23/17 15:35 0.5 MG Lorazepam 0.5 mg/ Syringe 1 ml @ 0.5 mls/min Q6H PRN IV 05/21/17 09:15 06/20/17 09:14 05/21/17 12:34 0.5 MLS/MIN Metoprolol Tartrate (Lopressor Tab) 50 mg DAILY PO 05/23/17 09:00 06/22/17 08:59 05/23/17 08:04 50 MG Potassium Chloride (Klor-Con Tab) 20 meq BID PO 05/23/17 21:00 06/22/17 20:59
[2017-05-23] MEDS: POTASSIUM CHLORIDE 20 MEQ TABCR PO SCH (20:45)
--- NOTE | 2017-05-23 22:26 | Progress Note ---
Internal Med Progress Note Date of Service: May 23, 2017. Provider Documentation: patient had aflutter/fib on monitor. ekg shows a fib. rate under control. but now monitor shows regular sinus rhythm. patient says he had some chest discomfort in evening but doing ok now.denies sob. Still having hematuria. Because of hematuria and as patient back in sinus now. Will hold of iv heparin now. Will relay to am providers. cardiology on board. will repeat ekg. f/u ce. ASSESSMENT & PLAN: [] DVT PROPHYLAXIS [] DISPOSITION [] Vital Signs: Date Time Temp Pulse Resp B/P (MAP) Pulse Ox O2 Delivery O2 Flow Rate FiO2 05/23/17 21:14 19 93 Nasal Cannula 2.0 05/23/17 20:23 81 18 109/67 (81) 91 Nasal Cannula 2.0 05/23/17 20:00 91 Nasal Cannula 4.0 05/23/17 19:17 36.8 91 18 129/73 (91) 91 Nasal Cannula 4.0 05/23/17 16:00 93 Nasal Cannula 4.0 05/23/17 15:32 36.9 79 18 152/82 (105) 92 Room Air 05/23/17 12:25 91 3.0 05/23/17 12:15 36.6 84 18 131/66 (87) 05/23/17 12:00 Room Air 05/23/17 08:00 Room Air 05/23/17 07:12 37.6 87 16 117/54 (75) 90 Nasal Cannula 3.0 05/23/17 04:08 37.0 87 20 130/68 (88) 91 Room Air 05/23/17 04:00 Room Air 05/23/17 00:00 Room Air 05/23/17 00:00 37.4 78 20 112/55 (74) 92 Room Air Lab Results: Results Past 24 Hours Test 05/23/17 06:26 Range/Units White Blood Count 11.76 4.8-10.8 K/uL Red Blood Count 4.24 4.7-6.1 M/uL Hemoglobin 13.2 14.0-18.0 g/dL Hematocrit 40.0 42-52 % Mean Corpuscular Volume 94.3 80-100 fL Mean Corpuscular Hemoglobin 31.1 25-34 pg Mean Corpuscular Hemoglobin Concent 33.0 32-36 g/dl RDW Standard Deviation 52.4 36.4-46.3 fL RDW Coefficient of Variation 15.3 11.5-14.5 % Platelet Count 126 130-400 K/uL Mean Platelet Volume 10.3 7.4-10.4 fL Sodium Level 139 136-145 mmol/L Potassium Level 3.4 3.5-5.1 mmol/L Chloride Level 105 98-107 mmol/L Carbon Dioxide Level 25 21-32 mmol/L Anion Gap 9.0 3-11 mmol/L Blood Urea Nitrogen 11 7-18 mg/dl Creatinine 1.44 0.60-1.40 mg/dl Est Creatinine Clear Calc Drug Dose 48.7 ml/min Estimated GFR () 52.8 Estimated GFR (Non- 45.5 BUN/Creatinine Ratio 7.6 10-20 Random Glucose 146 70-99 mg/dl Calcium Level 8.3 8.5-10.1 mg/dl
[2017-05-24 04:07] VITALS: BP 127/75; PULSE 75; TEMP 37; O2SAT 92
[2017-05-24 07:11] VITALS: BP 124/70; PULSE 77; TEMP 36.8; O2SAT 94
[2017-05-24 08:51] LABS: CALCIUM 8.3 mg/dl (8.5-10.1); CREATININE 1.29 mg/dl (0.60-1.40); POTASSIUM 3.7 mmol/L (3.5-5.1)
[2017-05-24] MEDS: METOPROLOL TARTRATE 50 MG TAB PO SCH (08:51)
[2017-05-24] MEDS: POTASSIUM CHLORIDE 20 MEQ TABCR PO SCH (08:52)
[2017-05-24] MEDS: TAMSULOSIN HCL 0.4 MG CAP PO SCH (08:52)
--- NOTE | 2017-05-24 09:51 | Progress Note ---
Subjective Date of Service: May 24, 2017. Subjective Pt evaluation today including: conversation w/ patient, chart review, lab review Voiding: no voiding problems 82 yo male s/p left stent. Pt denies pain this morning. Notes some hematuria and irritation with voiding. Cr has improved to 1.29. UC&S preliminarily negative. Culture from left kidney preliminarily negative as well. Problem List Medical Problems: (1) Dehydration Status: Acute (2) Left ureteral calculus Status: Acute Review of Systems Constitutional: No fever, No chills Respiratory: No shortness of breath Cardiac: No chest pain Abdomen: No pain, No nausea, No vomiting Male : + dysuria, + hematuria Heme: No abnormal bleeding/bruising Objective Vital Signs Date Time Temp Pulse Resp B/P (MAP) Pulse Ox O2 Delivery O2 Flow Rate FiO2 05/24/17 08:00 Room Air 05/24/17 07:11 36.8 77 20 124/70 (88) 94 Nasal Cannula 2.0 05/24/17 04:07 37.0 75 20 127/75 (92) 92 Nasal Cannula 2.0 05/24/17 04:00 Nasal Cannula 2.0 05/24/17 00:00 Nasal Cannula 2.0 05/23/17 23:23 37.2 84 20 121/64 (83) 92 Nasal Cannula 2.0 05/23/17 21:14 19 93 Nasal Cannula 2.0 05/23/17 20:23 81 18 109/67 (81) 91 Nasal Cannula 2.0 05/23/17 20:00 91 Nasal Cannula 4.0 05/23/17 19:17 36.8 91 18 129/73 (91) 91 Nasal Cannula 4.0 05/23/17 16:00 93 Nasal Cannula 4.0 05/23/17 15:32 36.9 79 18 152/82 (105) 92 Room Air 05/23/17 12:25 91 3.0 05/23/17 12:15 36.6 84 18 131/66 (87) 05/23/17 12:00 Room Air Physical Exam General Appearance: no apparent distress Eyes: normal inspection ENT: hearing grossly normal Neck: no JVD Respiratory/Chest: no respiratory distress, no accessory muscle use Cardiovascular: no JVD Extremities: normal inspection Neurologic/Psychiatric: alert, normal mood/affect, oriented x 3 Skin: normal color Laboratory Results Last 24 Hours Test 05/24/ 08:09 Sodium Level 139 mmol/L Potassium Level 3.7 mmol/L Chloride Level 105 mmol/L Carbon Dioxide Level 28 mmol/L Anion Gap 7.0 mmol/L Blood Urea Nitrogen 13 mg/dl Creatinine 1.29 mg/dl Est Creatinine Clear Calc Drug Dose 54.9 ml/min Estimated GFR () 60.3 Estimated GFR (Non- 52.0 BUN/Creatinine Ratio 10.1 Random Glucose 135 mg/dl Calcium Level 8.3 mg/dl Troponin I 0.060 ng/ml Assessment and Plan POD #2 s/p left ureteral stent placement for left ureteral stone AFVSS. Pt doing well post-op. Pt OK for d/c home from perspective. Recommend d/c home on 5 days of Cipro. Will plan for definitive stone management as an outpatient. Will arrange for f/ u with Dr. Coates in 1 week to discuss URS vs ESWL. No further management at this time. Recall PRN issues. Thanks for allowing us to participate in this pt's care.
--- NOTE | 2017-05-24 12:33 | Progress Note ---
Internal Med Progress Note Date of Service: May 24, 2017. Provider Documentation: SUBJECTIVE: The patient was seen and examined He was admitted with left flank pain associated with nausea and vomiting and found to have an obstructing left ureteric stone He does not have any complaints as of today and he was evaluated by urologist this morning He has been ambulating well and the wants to go home today OBJECTIVE: Vital Signs-as noted below Exam: General-no apparent distress at rest Eyes-normal ENT-normal Neck-supple Lungs-clear to auscultate bilaterally Heart-regular, no murmur appreciated Abdomen-benign,mildly tender in the epigastrium, no tenderness inguinal Extremities-no edema Neuro-AAA 3 No focal neuro deficit Lab data as noted below. ASSESSMENT & PLAN: LEFT URETERAL CALCULUS WITH HYDRONEPHROSIS CT demonstrated left ureteral calculus with hydronephrosis. UA showed many RBCs, 1-5 WBCs, no bacteria. Treated with IV fluids, analgesics, anti-emetics, tamsulosin. Urology consulted-appreciate input. Cystoscopy with stent placement performed by Urology. Mota catheter removed this morning. Hematuria less intense. Remains stable Will need Cipro for 5 more days to continue ACUTE KIDNEY INJURY Serum creatinine mary alice from 1.4 on admission to 1.96 05/22.. Acute kidney injury probably secondary to left ureteral obstruction and hydronephrosis. Creatinine today 1.44. Avoid NSAID's. Renal function has been normalized CORONARY ARTERY DISEASE History of CAD, s/p CABG. No recent anginal symptoms. No acute issue Had had some concern last night -05/23/17 Troponin and EKG -unremarkable HYPERTENSION Continue metoprolol. Follow and titrate Rx. HYPOXIA O2 sats as low as mid 80s on room air this afternoon. Sats quickly rise to the 90s after a few deep breaths. Hypoxia probably mostly secondary to atelectasis, perhaps with a component of mild fluid overload. Incentive spirometry. Stop IV fluids. IV furosemide 20 mg x 1. Will get 2 steps before discharge VTE PROPHYLAXIS SQ heparin ordered; patient declined. SCD's. Ambulate. RESUSCITATION STATUS Full code as documented in admission H&P. DISPOSITION Expected discharge to home. Internal Medicine follow-up with Dr. Gin Ledesma. Urology follow-up with ANDREW. Vital Signs: Date Time Temp Pulse Resp B/P (MAP) Pulse Ox O2 Delivery O2 Flow Rate FiO2 05/24/17 08:00 Room Air 05/24/17 07:11 36.8 77 20 124/70 (88) 94 Nasal Cannula 2.0 05/24/17 04:07 37.0 75 20 127/75 (92) 92 Nasal Cannula 2.0 05/24/17 04:00 Nasal Cannula 2.0 05/24/17 00:00 Nasal Cannula 2.0 05/23/17 23:23 37.2 84 20 121/64 (83) 92 Nasal Cannula 2.0 05/23/17 21:14 19 93 Nasal Cannula 2.0 05/23/17 20:23 81 18 109/67 (81) 91 Nasal Cannula 2.0 05/23/17 20:00 91 Nasal Cannula 4.0 05/23/17 19:17 36.8 91 18 129/73 (91) 91 Nasal Cannula 4.0 05/23/17 16:00 93 Nasal Cannula 4.0 05/23/17 15:32 36.9 79 18 152/82 (105) 92 Room Air Lab Results: Results Past 24 Hours Test 05/24/17 08:09 05/24/17 11:50 Range/Units Sodium Level 139 136-145 mmol/L Potassium Level 3.7 3.5-5.1 mmol/L Chloride Level 105 98-107 mmol/L Carbon Dioxide Level 28 21-32 mmol/L Anion Gap 7.0 3-11 mmol/L Blood Urea Nitrogen 13 7-18 mg/dl Creatinine 1.29 0.60-1.40 mg/dl Est Creatinine Clear Calc Drug Dose 54.9 ml/min Estimated GFR () 60.3 Estimated GFR (Non- 52.0 BUN/Creatinine Ratio 10.1 10-20 Random Glucose 135 70-99 mg/dl Calcium Level 8.3 8.5-10.1 mg/dl Troponin I 0.060 0-0.045 ng/ml
--- NOTE | 2017-05-24 14:41 | Cardiology Follow-Up ---
Subjective General Date of Service: May 24, 2017. Chief Complaint: follow up chronic CAD Pt evaluation today including: conversation w/ patient, physical exam History of Present Illness The patient is a 82 year old male seen in cardiology reassessment. His daughter who is a nurse and is visiting from [place] accompanies him at the bedside. Last evening an episode of atrial fibrillation with ventricular rates as high as 130 bpm was observed on telemetry that lasted from 1645 until 2208 on 05/23/17. An EKG performed during that time interview today reveals atrial fibrillation at 90 bpm with age-indeterminate inferior infarction pattern, and no significant repolarization abnormalities. Repeat EKG performed this morning reveals normal sinus rhythm without any significant ST changes. The patient states that per his recollection he had no subjective symptoms of palpitations denied chest discomfort and denies having had shortness of breath. He recalls nursing telling him that there is an issue with his heart rate, and he does recall Dr. Ramos having come to check up on him. 2 troponin measurements were made this morning at 8:00 and again at 11:50 AM that were mildly elevated at 0.060 NG per mL and 0.055 NG per mL. The patient feels well. He has no cardiac symptoms and he is eager for discharge. He had been having some difficulty voiding but this improved. He did have some mild gross hematuria but this is stable. Allergies Coded Allergies: Atorvastatin (Unverified Adverse Reaction, Unknown, MUSCLE CRAMPS, 05/21/17 ) Simvastatin (Unverified Adverse Reaction, Unknown, MUSCLE CRAMPS, 05/21/17) Social History Smoking Status: Never Smoker Hx Tobacco Use In Past Year?: No Hx Alcohol Use - Type And Amou: No Hx Substance Use - Type And Am: No Problem List Medical Problems: (1) Dehydration Status: Acute (2) Left ureteral calculus Status: Acute Physical Exam Vital Signs Last Vital Signs Documentation Date Time Temp Pulse Resp B/P (MAP) Pulse Ox O2 Delivery O2 Flow Rate FiO2 05/24/17 12:00 Room Air 05/24/17 07:11 36.8 77 20 124/70 (88) 94 2.0 Physical Exam Constitutional: Level of Distress: NAD Neck: supple Lungs: Auscultation: no wheezing, no rales/crackles Cardiovascular: Heart Auscultation: RRR, no murmurs, no rubs, no gallops Extremities: no edema Neurologic: Gait & Station: pertinent finding Assessment and Plan Assessment and Plan Impression: s/p left ureteral stent placement for left ureteral stone Stable chronic CAD Episode of asymptomatic paroxysmal atrial fibrillation Plan: The patient has a very mild elevation his troponin. He is 82 years old, admitted for treatment of a left ureter stone, had undergone cystoscopy, and then had several hours of atrial fibrillation with mildly elevated ventricular rate. His mild troponin elevation is not surprising given the elevated heart rates. He is astigmatic from this. His typical medication regimen at home includes metoprolol tartrate, 100 mg tablets, and he takes one half tablet or 50 mg daily. I recommend that we provide a prescription for metoprolol tartrate 50 mg tablets and that he should take one 50 mg tablet daily in the morning and another one half of a tablet in the evening (50 mg q am, 25 mg q pm. Given his recent microscopic hematuria he is not a candidate for systemic anticoagulation for stroke prophylaxis at present. I would however discharge him on low-dose aspirin 81 mg daily. If upcoming invasive cystoscopy or lithotripsy becomes necessary, aspirin could be held if necessary. I am going to make arrangements for him to have a 7 day [employer] in our office in about 2 weeks to determine his atrial fibrillation burden when he is not hospitalized with an acute left ureter stone. If he has a significant atrial fibrillation burden, his anticoagulation status will need to be revisited as he does have significant risk factors of underlying coronary disease, age, and hypertension. As noted monitor and a follow-up visit with Dr. Nassar will be arranged. Patient is stable from my perspective to be discharged with the above medication changes. Laboratory Results Last 24 Hours Test 05/24/17 08:09 05/24/17 11:50 Sodium Level 139 mmol/L Potassium Level 3.7 mmol/L Chloride Level 105 mmol/L Carbon Dioxide Level 28 mmol/L Anion Gap 7.0 mmol/L Blood Urea Nitrogen 13 mg/dl Creatinine 1.29 mg/dl Est Creatinine Clear Calc Drug Dose 54.9 ml/min Estimated GFR () 60.3 Estimated GFR (Non- 52.0 BUN/Creatinine Ratio 10.1 Random Glucose 135 mg/dl Calcium Level 8.3 mg/dl Troponin I 0.060 ng/ml 0.055 ng/ml
[2017-05-24] MEDS ORDERED: FLM4 PO (16:04)
[2017-05-24] MEDS ORDERED: CPR500 PO (16:04)
[2017-05-24] MEDS ORDERED: METO50TA17 PO (16:04)
[2017-05-24] MEDS ORDERED: ASPI-320 PO (16:04)
[2017-05-24 16:06] VITALS: BP 130/75; PULSE 75; TEMP 37.1; O2SAT 93
--- NOTE | 2017-05-24 16:07 | Discharge Instructions ---
Discharge Instructions Date of Service May 24, 2017. Admission Reason for Admission: Lt Ureteral Calculus Discharge Discharge Diagnosis / Problem: Left Uroteric Stone,S/P stent placement,Atrial Fibrillation Discharge Goals Goal(s): Prevent Disease Progression Activity Recommendations Activity Limitations: resume your previous activity (Take it easy for the time being) . Instructions / Follow-Up Instructions / Follow-Up Dr Ledesma on 05/30/17 at 2:25PM .Please keep appointments with your Urologist and the automation manager Current Hospital Diet Patient's current hospital diet: AHA Diet (Heart Healthy) Discharge Diet Recommended Diet: AHA Diet (Heart Healthy) Procedures Procedures Performed: Cystoscopy with Left Retrograde pyelogram and stent placement Pending Studies Studies pending at discharge: no Medical Emergencies . Who to Call and When: Medical Emergencies: If at any time you feel your situation is an emergency, please call 911 immediately. . Non-Emergent Contact Non-Emergency issues call your: Primary Care Provider . Past History Medical & Surgical History: (1) Dyslipidemia (2) Left ureteral calculus (3) Hypertension (4) History of urinary calculi (5) Diverticular disease of colon (6) Glaucoma (7) History of peptic ulcer disease (8) Benign prostatic hyperplasia (9) Coronary artery disease (10) Hx of CABG (11) Hx of cholecystectomy (12) PAF (paroxysmal atrial fibrillation) . "Provider Documentation" section prepared by Erick Cedillo. .
[2017-05-24] MEDS ORDERED: CIPROFLOXACIN 500 MG TAB PO ONE (16:30)
[2017-05-24 16:32] VITALS: BP 130/75; PULSE 75; TEMP 37.1; O2SAT 93
--- NOTE | 2017-05-24 17:08 | Discharge Summary ---
Discharge Summary Date of Service May 24, 2017. Discharge Summary Admission Date: May 21, 2017 at 08:53 Discharge Date: May 24, 2017 Discharge Disposition: Home Principal Diagnosis: Left Ureteric Stone,S/P stent placement,Atrial Fibrillation Secondary Diagnoses/Problems: Please see H&P and Hospital progress note Procedures: Left Ureteric stent placement Consultations: Cardiology and Urology Medication Reconciliation New Medications: Aspirin (Aspirin EC Low Dose) 81 Mg Ectab 81 MG PO DAILY, #30 Ciprofloxacin (Ciprofloxacin HCl) 500 Mg Tab 500 MG PO BID, #10 Metoprolol Tartrate (Metoprolol Tartrate) 50 Mg Tab 25 MG PO QPM, #30 Tamsulosin HCl (Tamsulosin HCl) 0.4 Mg Cap 0.4 MG PO BID for 30 Days, #60 CAP Continued Medications: Aspirin Enteric Coated (Ecotrin Or Generic *) 81 Mg Ectab 81 MG PO QAM, 0 Refills Ezetimibe (Zetia) 10 Mg Tab 10 MG PO QPM Levothyroxine Sodium (Levothyroxine Sodium) 25 Mcg Tab 25 MCG PO QAM Metoprolol Tartrate (Lopressor) (Lopressor) 100 Mg Tab 50 MG PO DAILY, TAB 1/2 pill (50 mg) daily Multivitamin (Multivitamin) Tab 1 TAB PO QAM, 0 Refills Admission Information HPI (per Admitting provider): 82 YO male followed by Gin Ledesma. History of CAD, hypertension, renal calculi, and other problems as noted below. Developed left flank pain this morning around 03:00. Pain was severe and constant; radiated to the left groin. No fever, dysuria, hematuria. Pain associated with nausea and vomiting. Came to ED for evaluation. Dixie somewhat better after receiving fentanyl, hydromorphone, ondansetron. 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 Family History FATHER Pneumoconiosis MOTHER Diabetes mellitus BROTHER Diabetes mellitus Coronary artery disease SISTER Diabetes mellitus Social History Smoking Status: Never Smoker Smokeless Tobacco Use: No Alcohol Use: occasionally Marital Status: Occupational Status: unemployed Immunizations History of Influenza Vaccine: Yes History of Pneumococcal: Yes Allergies Coded Allergies: Atorvastatin (Unverified Adverse Reaction, Unknown, MUSCLE CRAMPS, 05/21/17 ) Simvastatin (Unverified Adverse Reaction, Unknown, MUSCLE CRAMPS, 05/21/17) Home Medications Scheduled Aspirin Enteric Coated (Ecotrin Or Generic *), 81 MG PO QAM Ezetimibe (Zetia), 10 MG PO QPM Levothyroxine Sodium (Levothyroxine Sodium), 25 MCG PO QAM Metoprolol Tartrate (Lopressor) (Lopressor), 50 MG PO DAILY Multivitamin (Multivitamin), 1 TAB PO QAM Review of Systems CONSTITUTIONAL no fever no weight loss EYES chronic vision loss EARS, NOSE, MOUTH, AND THROAT + mild hearing loss no sinus symptoms no pharyngitis CARDIOVASCULAR no chest pain no palpitations no edema RESPIRATORY no cough no dyspnea GASTROINTESTINAL + nausea or vomiting, no hematemesis no diarrhea no constipation no melena or hematochezia GENITOURINARY as noted above in HPI MUSCULOSKELETAL + arthralgias INTEGUMENTARY no rash no new / changing lesions NEUROLOGIC no headaches no focal neurologic symptoms ENDOCRINE no polyuria or polydipsia HEMATOLOGIC / LYMPHATIC bruises easily no adenopathy . Physical Exam H&P v2 Physical Exam Vital Signs Date Time Temp Pulse Resp B/P (MAP) Pulse Ox O2 Delivery O2 Flow Rate FiO2 05/21/17 07:48 77 18 124/74 97 Nasal Cannula 2.0 05/21/17 07:45 97 Nasal Cannula 2.0 05/21/17 07:16 89 Room Air 05/21/17 06:41 74 20 158/96 98 Room Air 05/21/17 06:31 76 20 163/94 97 Room Air 05/21/17 06:10 70 16 135/95 95 Room Air 05/21/17 05:23 36.3 76 18 173/94 97 Room Air CONSTITUTIONAL vital signs as noted above well-developed, well-nourished, appears to be uncomfortable EYES conjunctivae clear; lids normal pupils equal and reactive to light EARS, NOSE, MOUTH AND THROAT external inspection of ears and nose unremarkable hearing grossly intact to spoken voice oropharynx clear NECK no masses; trachea midline thyroid normal RESPIRATORY normal respiratory effort; no respiratory distress clear to percussion clear to auscultation CARDIOVASCULAR regular rate and rhythm no murmur, gallop, rub appreciated carotid arteries 2/2 abdominal aorta not palpable pedal pulses intact and symmetric capillary refill toes < 2 seconds no pretibial edema GASTROINTESTINAL left abdominal tenderness normal bowel sounds, soft; no palpable masses no hepatomegaly; no splenomegaly LYMPHATIC no cervical adenopathy MUSCULOSKELETAL no cyanosis; no digital clubbing no calf tenderness motor strength extremities grossly intact SKIN no rash warm and dry NEUROLOGIC PERRL, EOMI, no facial palsy, no dysarthria, tongue midline PSYCHIATRIC oriented to person, place, time mood and affect appropriate . Diagnostics H&P v2 Diagnostics Laboratory Results Results Past 24 Hours Test 05/21/17 05:40 Range/Units White Blood Count 6.73 4.8-10.8 K/uL Red Blood Count 4.72 4.7-6.1 M/uL Hemoglobin 14.9 14.0-18.0 g/dL Hematocrit 43.6 42-52 % Mean Corpuscular Volume 92.4 80-100 fL Mean Corpuscular Hemoglobin 31.6 25-34 pg Mean Corpuscular Hemoglobin Concent 34.2 32-36 g/dl Platelet Count 150 130-400 K/uL Mean Platelet Volume 9.7 7.4-10.4 fL Neutrophils (%) (Auto) 40.6 % Lymphocytes (%) (Auto) 45.2 % Monocytes (%) (Auto) 9.8 % Eosinophils (%) (Auto) 3.7 % Basophils (%) (Auto) 0.3 % Neutrophils # (Auto) 2.73 1.4-6.5 K/uL Lymphocytes # (Auto) 3.04 1.2-3.4 K/uL Monocytes # (Auto) 0.66 0.11-0.59 K/uL Eosinophils # (Auto) 0.25 0-0.5 K/uL Basophils # (Auto) 0.02 0-0.2 K/uL RDW Standard Deviation 51.0 36.4-46.3 fL RDW Coefficient of Variation 15.2 11.5-14.5 % Immature Granulocyte % (Auto) 0.4 % Immature Granulocyte # (Auto) 0.03 0.00-0.02 K/uL Prothrombin Time 10.6 9.0-12.0 SECONDS Prothromb Time International Ratio 1.0 0.9-1.1 Activated Partial Thromboplast Time 24.4 21.0-31.0 SECONDS Partial Thromboplastin Ratio 0.9 Sodium Level 139 136-145 mmol/L Potassium Level 3.9 3.5-5.1 mmol/L Chloride Level 108 98-107 mmol/L Carbon Dioxide Level 27 21-32 mmol/L Anion Gap 4.0 3-11 mmol/L Blood Urea Nitrogen 20 7-18 mg/dl Creatinine 1.40 0.60-1.40 mg/dl Est Creatinine Clear Calc Drug Dose 46.2 ml/min Estimated GFR () 54.6 Estimated GFR (Non- 47.1 BUN/Creatinine Ratio 14.4 10-20 Random Glucose 109 70-99 mg/dl Calcium Level 8.9 8.5-10.1 mg/dl Total Bilirubin 0.8 0.2-1 mg/dl Direct Bilirubin 0.2 0-0.2 mg/dl Aspartate Amino Transf (AST/SGOT) 19 15-37 U/L Alanine Aminotransferase (ALT/SGPT) 26 12-78 U/L Alkaline Phosphatase 71 45-117 U/L Total Creatine Kinase 130 39-308 U/L Total Protein 7.9 6.4-8.2 gm/dl Albumin 4.0 3.4-5.0 gm/dl Lipase 131 73-393 U/L Diagnostic Radiology CHEST ONE VIEW PORTABLE FINDINGS: Median sternotomy wires intact. Atherosclerosis of the aortic arch. Cardiac silhouette normal in size. No focal opacity. No large effusion or pneumothorax. Degenerative changes of the thoracic spine. Upper abdomen normal. IMPRESSION: 1. No acute cardiopulmonary disease. Electronically signed by: Morro Matson M.D. 05/21/2017 7:39 AM Dictated Date/Time: 05/21/2017 7:[address] ABD/PELVIS WITHOUT FOR STONE IMPRESSION: 1. Obstructing 4 mm calculus in the proximal left ureter at the level of L4 with resultant mild left hydroureteronephrosis. 2. Nonobstructing 3 mm left renal calculus. No right renal calculi. 3. Chronic bladder outlet obstruction with prostatomegaly. Electronically signed by: Morro Matson M.D. 05/21/2017 6:16 AM Dictated Date/Time: 05/21/2017 6:08 AM . EKG EKG performed at 09:07 reviewed and demonstrated NSR at 70 / minute, possible age-indeterminate inferior infarct, no acute changes.. . Impression H&P v2 Impression Assessment and Plan LEFT URETERAL CALCULUS WITH HYDRONEPHROSIS CT demonstrated left ureteral calculus with hydronephrosis. UA pending at time of admission. Afebrile. IV fluids, analgesics, anti-emetics, tamsulosin. Strain urine. Check follow-up KUB in a.m. CORONARY ARTERY DISEASE History of CAD, s/p CABG. No recent anginal symptoms. Unable to take oral metoprolol at this time due to N & V. IV metoprolol until able to resume oral meds. Resume aspirin when able. HYPERTENSION IV metoprolol until able to resume oral meds. Follow and titrate Rx. VTE PROPHYLAXIS SQ heparin ordered. Ambulate. RESUSCITATION STATUS Discussed with patient and his family. He has a living will. He would like resuscitation attempted in the event of a cardiopulmonary arrest if there is a reasonable chance of a meaningful recovery, but does not want prolonged extraordinary measures if prognosis is poor. Therefore, code status = "Level 1" (full resuscitation). DISPOSITION Expected discharge to home. Internal Medicine follow-up with Dr. Gin Ledesma. . Advanced Directives Existing Living Will: Yes Existing Power of Dispensary Attendant: Yes Resuscitation Status VTE Prophylaxis Will order VTE Prophylaxis: Yes . Physical Exam (per Admitting): CONSTITUTIONAL vital signs as noted above well-developed, well-nourished, appears to be uncomfortable EYES conjunctivae clear; lids normal pupils equal and reactive to light EARS, NOSE, MOUTH AND THROAT external inspection of ears and nose unremarkable hearing grossly intact to spoken voice oropharynx clear NECK no masses; trachea midline thyroid normal RESPIRATORY normal respiratory effort; no respiratory distress clear to percussion clear to auscultation CARDIOVASCULAR regular rate and rhythm no murmur, gallop, rub appreciated carotid arteries 2/2 abdominal aorta not palpable pedal pulses intact and symmetric capillary refill toes < 2 seconds no pretibial edema GASTROINTESTINAL left abdominal tenderness normal bowel sounds, soft; no palpable masses no hepatomegaly; no splenomegaly LYMPHATIC no cervical adenopathy MUSCULOSKELETAL no cyanosis; no digital clubbing no calf tenderness motor strength extremities grossly intact SKIN no rash warm and dry NEUROLOGIC PERRL, EOMI, no facial palsy, no dysarthria, tongue midline PSYCHIATRIC oriented to person, place, time mood and affect appropriate . Hospital Course LEFT URETERAL CALCULUS WITH HYDRONEPHROSIS CT demonstrated left ureteral calculus with hydronephrosis. UA showed many RBCs, 1-5 WBCs, no bacteria. Treated with IV fluids, analgesics, anti-emetics, tamsulosin. Urology consulted-appreciate input. Cystoscopy with stent placement performed by Urology. Mota catheter removed this morning. Hematuria less intense. Remains stable Will need Cipro for 5 more days to continue ACUTE KIDNEY INJURY Serum creatinine mary alice from 1.4 on admission to 1.96 05/22.. Acute kidney injury probably secondary to left ureteral obstruction and hydronephrosis. Creatinine today 1.44. Avoid NSAID's. Renal function has been normalized CORONARY ARTERY DISEASE History of CAD, s/p CABG. No recent anginal symptoms. No acute issue Had had some concern last night -05/23/17 Troponin and EKG -unremarkable HYPERTENSION Continue metoprolol. Follow and titrate Rx. HYPOXIA O2 sats as low as mid 80s on room air this afternoon. Sats quickly rise to the 90s after a few deep breaths. Hypoxia probably mostly secondary to atelectasis, perhaps with a component of mild fluid overload. Incentive spirometry. Stop IV fluids. IV furosemide 20 mg x 1. Will get 2 steps before discharge VTE PROPHYLAXIS SQ heparin ordered; patient declined. SCD's. Ambulate. RESUSCITATION STATUS Full code as documented in admission H&P. DISPOSITION Expected discharge to home. Internal Medicine follow-up with Dr. Gin Ledesma. Urology follow-up with ANDREW. Total time spent on discharge = 35 minutes This includes examination of the patient, discharge planning, medication reconciliation, and communication with other providers. Discharge Instructions Date of Service May 24, 2017. Admission Reason for Admission: Lt Ureteral Calculus Discharge Discharge Diagnosis / Problem: Left Uroteric Stone,S/P stent placement,Atrial Fibrillation Discharge Goals Goal(s): Prevent Disease Progression Activity Recommendations Activity Limitations: resume your previous activity (Take it easy for the time being) . Instructions / Follow-Up Instructions / Follow-Up Dr Ledesma on 05/30/17 at 2:25PM .Please keep appointments with your Urologist and the application architect manager Current Hospital Diet Patient's current hospital diet: AHA Diet (Heart Healthy) Discharge Diet Recommended Diet: AHA Diet (Heart Healthy) Procedures Procedures Performed: Cystoscopy with Left Retrograde pyelogram and stent placement Pending Studies Studies pending at discharge: no Medical Emergencies . Who to Call and When: Medical Emergencies: If at any time you feel your situation is an emergency, please call 911 immediately. . Non-Emergent Contact Non-Emergency issues call your: Primary Care Provider . Past History Medical & Surgical History: (1) Dyslipidemia (2) Left ureteral calculus (3) Hypertension (4) History of urinary calculi (5) Diverticular disease of colon (6) Glaucoma (7) History of peptic ulcer disease (8) Benign prostatic hyperplasia (9) Coronary artery disease (10) Hx of CABG (11) Hx of cholecystectomy (12) PAF (paroxysmal atrial fibrillation) . "Provider Documentation" section prepared by Erick Cedillo. . <Electronically signed by Erick Cedillo M.D.> Additional Copies To Gin Ledesma M.D.
== END 2017-05-24 16:50 | disposition home or self-care (01) | DRG 694 ==
LOC: C.EDB 05:21 → EDBEDREQ 08:50 → ENRESERV 08:52 → CANRESERV 08:52 → C.MED 08:53 → EDBEDREQSVC 08:54 → EDBEDREQ 08:54 → ENRESERV 09:12
PROVIDERS: ADMIT Hospitalist; ATTEND Hospitalist
PROC: 0T778DZ Dilation of Left Ureter with Intraluminal Device, Via Natural or Artificial Opening Endoscopic (ICD-10-PCS; principal; 2017-05-22 12:45)
DX: N20.1 Calculus of ureter (principal); N17.9 Acute kidney failure, unspecified; N13.30 Unspecified hydronephrosis; N23 Unspecified renal colic; E78.5 Hyperlipidemia, unspecified; I48.91 Unspecified atrial fibrillation; H40.9 Unspecified glaucoma; E86.0 Dehydration; I10 Essential (primary) hypertension; E03.9 Hypothyroidism, unspecified; N40.1 Benign prostatic hyperplasia with lower urinary tract symptoms; Z87.442 Personal history of urinary calculi; Z95.1 Presence of aortocoronary bypass graft; Z90.49 Acquired absence of other specified parts of digestive tract; Z88.8 Allergy status to other drugs, medicaments and biological substances; Z79.82 Long term (current) use of aspirin; Z87.11 Personal history of peptic ulcer disease; Z83.3 Family history of diabetes mellitus; Z84.1 Family history of disorders of kidney and ureter; Z82.49 Family history of ischemic heart disease and other diseases of the circulatory system

== ENCOUNTER → 2017-05-31 | Outpatient (CLI) | payer OTHER ==
[~2017-05-31] MED LIST changes: +ASPI-320 PO; +ASPI81TA28 PO; +CPR500 PO; -DORZ1SOL OPL; +FLM4 PO; +METO100T14 PO; -METO100T44 PO; +METO50TA17 PO; -TAFL1DRO14 OPL
--- NOTE | 2017-05-31 10:15 | DIAGNOSTIC IMAGING REPORT ---
KUB CLINICAL HISTORY: URETERAL STONE nephrocalcinosis COMPARISON STUDY: 05/22/2017 FINDINGS: Placement of a left ureteral stent. Calcifications adjacent to the stent overlying the left sacrum. These have been present previously. Kidneys are otherwise obscured by overlying bowel content. Punctate left renal nephrocalcinosis is unchanged. IMPRESSION: 1. Left ureteral stent in good position. 2. Calcifications medially adjacent to the distal left ureter overlying the lower left sacrum. The above report was generated using voice recognition software. It may contain grammatical, syntax or spelling errors. Electronically signed by: Tolu Orta M.D. 05/31/2017 10:14 AM Dictated Date/Time: 05/31/2017 10:11 AM
== END | disposition home or self-care (01) ==
LOC: C.RAD 09:26
PROVIDERS: ATTEND Nurse Practitioner Adult Health
DX: N20.1 Calculus of ureter (principal); Z96.0 Presence of urogenital implants

== ENCOUNTER → 2017-06-19 | Day surgery (SDC) | payer OTHER ==
[2017-06-07 09:16] VITALS: BMI 27.0
--- NOTE | 2017-06-07 09:31 | PAT Medication Instructions ---
Service Date June 07, 2017. Current Home Medication List Aspirin (Aspirin Ec), 81 MG PO QPM Ezetimibe (Zetia), 10 MG PO QPM Levothyroxine Sodium (Levothyroxine Sodium), 25 MCG PO QAM Metoprolol Tartrate (Metoprolol Tartrate), 25 MG PO QPM Metoprolol Tartrate (Lopressor) (Lopressor), 50 MG PO QAM Multivitamin (Multivitamin), 1 TAB PO NOON Tamsulosin HCl (Tamsulosin HCl), 0.4 MG PO BID Medication Instructions For Your Scheduled Surgery -Check with your surgeon and geopolitics teacher for instructions for: Aspirin (Aspirin Ec), 81 MG PO QPM - Hold the following medications the night before surgery: Ezetimibe (Zetia), 10 MG PO QPM - Take the following medications the morning of surgery with a sip of water: Levothyroxine Sodium (Levothyroxine Sodium), 25 MCG PO QAM Metoprolol Tartrate (Lopressor) (Lopressor), 50 MG PO QAM Tamsulosin HCl (Tamsulosin HCl), 0.4 MG PO BID - Take the following medications as scheduled the afternoon/night before surgery : Metoprolol Tartrate (Metoprolol Tartrate), 25 MG PO QPM Tamsulosin HCl (Tamsulosin HCl), 0.4 MG PO BID Multivitamin (Multivitamin), 1 TAB PO NOON If you have any questions please call us at [phone] or [phone] or [phone]
[2017-06-07 10:42] LABS: BASO % 0.5 %; BASO ABS # 0.03 K/uL (0-0.2); EOS % 4.7 %; EOS ABS # 0.27 K/uL (0-0.5); HEMATOCRIT 39.2 % (42-52); HEMOGLOBIN 13.2 g/dL (14.0-18.0); IG# 0.05 K/uL (0.00-0.02); LYMPH % 29.7 %; MEAN CELL VOLUME 91.4 fL (80-100); MEAN CORPUSCULAR HEMOGLOBIN 30.8 pg (25-34); MEAN CORPUSCULAR HGB CONC 33.7 g/dl (32-36); MONO % 10.5 %; NEUT % 53.7 %; NEUT ABS # 3.08 K/uL (1.4-6.5); PLATELET COUNT 225 K/uL (130-400); RED CELL DISTRIBUTION WIDTH CV 14.8 % (11.5-14.5); RED CELL DISTRIBUTION WIDTH SD 49.2 fL (36.4-46.3); WHITE BLOOD COUNT 5.73 K/uL (4.8-10.8)
[2017-06-07 10:50] LABS: CALCIUM 8.5 mg/dl (8.5-10.1); CREATININE 1.22 mg/dl (0.60-1.40); POTASSIUM 4.3 mmol/L (3.5-5.1)
[~2017-06-19] VITALS: Ht 182.9 cm; Wt 91.3 kg
[~2017-06-19] MED LIST changes: -ASPEC81 PO; -ASPI-320 PO; +ATROPINE SULFATE 0.1 MG/ML 5ML SYR IV PRN; +CIPR-255 PO; +CIPROFLOXACIN / D5W 400 MG IV SCH; -CPR500 PO; +Cysto-Conray II 17.2% 250ML BOTTLE ONE; +DEXAMETHASONE SOD INJ 4 MG/ML VIAL ONE; +EpHEDrine SULFATE INJ 50 MG/ML AMP IV PRN; +FENTANYL CITRATE INJ 50 MCG/1 ML 2 ML VIAL IV PRN; +FENTANYL CITRATE INJ 50 MCG/1 ML 2 ML VIAL ONE; +HYDROmorphone INJ 1 MG/ML SYR IV PRN; +LACTATED RINGER'S 1000ML 1,000 ML IV SCH; +LIDOCAINE HCL 2% 2 ML VIAL (20MG/ML) ONE; +MIDAZOLAM HCL 1 MG/ML 2ML VIAL ONE; +ONDANSETRON INJ 2 MG/ML 2 ML VIAL IV PRN; +ONDANSETRON INJ 2 MG/ML 2 ML VIAL ONE; +OXYC7.5T65 PO; +OXYCODONE/ACETAMINOPHEN 7.5-325 TAB PO PRN; +PHEN-775 PO; +PHENYLEPHRINE 100MCG/ML 5ML SYR IV PRN; +PROPOFOL IV EMULSION 10 MG/ML 20 ML VIAL ONE
[2017-06-19 08:49] VITALS: BP 133/77; PULSE 64; TEMP 36.9; Ht 182.9 cm; Wt 91.3 kg
--- NOTE | 2017-06-19 10:00 | History & Physical Bridge Note ---
H&P Re-Evaluation Bridge Note: I have examined the patient, reviewed the History & Physical and in the interval since the performance of the History & Physical I have noted the following changes of clinical significance: No changes noted
--- NOTE | 2017-06-19 10:03 | Discharge Instructions ---
Discharge Instructions Date of Service June 19, 2017. Admission Reason for Admission: Ureteral Stone Discharge Discharge Diagnosis / Problem: stone Discharge Goals Goal(s): Decrease discomfort, Improve function Activity Recommendations Activity Limitations: resume your previous activity Lifting Limitations: gradually increase as tolerated Exercise/Sports Limitations: gradually increase as tolerated Shower/Bathe: no limitations . Instructions / Follow-Up Instructions / Follow-Up May have blood in urine. May have pelvic discomfort. Call if any fevers or chills. will need stent removed in 1-2 weeks. Current Hospital Diet Patient's current hospital diet: Discharge Diet Recommended Diet: Regular Diet Procedures Procedures Performed: Cystoscopy Left Ureteroscopy, laser Lithotripsy, Stent exchange, Retrograde pyelogram, Stone Basket Extraction. Pending Studies Studies pending at discharge: no Medical Emergencies . Who to Call and When: Medical Emergencies: If at any time you feel your situation is an emergency, please call 911 immediately. . Non-Emergent Contact Non-Emergency issues call your: Primary Care Provider, Urologist Call Non-Emergent contact if: you have a fever, temperature is above 101, temperature is above 101.5, your pain is not controlled, your pain is worsening , your pain is unusual for you . . "Provider Documentation" section prepared by Dutch Coates. .
--- NOTE | 2017-06-19 12:26 | [facility] Operative Report ---
Operative Report Operative Date June 19, 2017. Pre-Operative Diagnosis Left Stone Post-Operative Diagnosis Same Procedure(s) Performed Cystoscopy Left Ureteroscopy, laser Lithotripsy, Stent exchange, Retrograde pyelogram, Stone Basket Extraction. Surgeon Jaxon Estimated Blood Loss Minimal Findings Left Ureteral Stone Specimens Stone Fragment Drains 6 Fr Multilength Anesthesia Type General Complication(s) none Disposition Recovery Room / PACU Indications Large left obstructing stone with stent in place. Here for stone treatment after discussing risks and benefits. Description of Procedure Patient was consented and brought back to the operating room. Patient was placed under anesthesia in the supine position and moved to the dorsal lithotomy position. Patient was prepped and draped in the regular sterile fashion. A time out was completed. A 30degree Cystoscope was placed into the bladder and the entire bladder was examined. The UO's were identified. The left stent was grasped and partially removed. A wire was placed. A dual lumen ureteral catheter was placed and a retrograde pyelogram completed. This was followed by a safety wire. A flexible ureteroscope was then placed. The scope was taken into the proximal ureter and the area assessed. The stone was identified and pulverized to dust and small fragments with the laser. The entire pelvis was examined. Further stone was treated. A larger fragment was grasped and removed. The entire pelvis and ureter were examined. A retrograde was completed through the scope to highlight the pelvis. The scope and sheath were removed with the wire remaining in place. With the wire in place, a 6 Fr Multilength Double J stent was placed. It was confirmed with fluoroscopy. With the stent in place, the bladder was emptied. The scope was removed. The patient was cleaned, aroused from anesthesia, and transferred to the pacu in stable condition having tolerated the procedure well with no complications. I was present and participated in all aspects of the procedure. The patient will be monitored in the PACU until transferred. I attest to the content of the Intraoperative Record and any orders documented therein. Any exceptions are noted below.
--- NOTE | 2017-06-19 12:45 | DIAGNOSTIC IMAGING REPORT ---
RETROGRADE INCLUDES KUB CLINICAL HISTORY: LEFT LASER LITHO AND STENT PLACEMENT COMPARISON STUDY: Supine abdomen dated 05/31/2017 FINDINGS: 6 intraoperative fluoroscopic spot images are provided for interpretation. 51 seconds of fluoroscopic time was utilized. The first image demonstrates a guidewire within upper pole calyx on the left. Subsequent images demonstrate placement of a ureteroscope into the left renal pelvis. The final 2 images demonstrate placement of a double-pigtail left-sided nephroureteral stent. IMPRESSION: Fluoroscopic images obtained during laser lithotripsy and stent placement as described above Electronically signed by: Angel Burdick M.D. 06/19/2017 12:44 PM Dictated Date/Time: 06/19/2017 12:42 PM
--- NOTE | 2017-06-19 13:08 | Anesthesiology Progress Note ---
Anesthesia Post Op Note Date & Time June 19, 2017 at 13:08 Vital Signs Pain Intensity: 0 Vital Signs Past 12 Hours Date Time Temp Pulse Resp B/P (MAP) Pulse Ox O2 Delivery O2 Flow Rate FiO2 06/19/17 13:00 61 20 129/75 100 Room Air Oxymask 06/19/17 12:50 58 17 127/71 100 Oxymask 10 06/19/17 12:40 59 12 125/71 100 Oxymask 10 06/19/17 12:34 36.2 59 14 122/72 100 Oxymask 10 06/19/17 08:49 36.9 64 18 133/77 (95) Room Air Notes Mental Status: alert / awake / arousable, participated in evaluation Pt Amnestic to Procedure: Yes Nausea / Vomiting: adequately controlled Pain: adequately controlled Airway Patency, RR, SpO2: stable & adequate BP & HR: stable & adequate Hydration State: stable & adequate Anesthetic Complications: no major complications apparent Doing well, no complaints, VSS.
[2017-06-19 13:20] VITALS: BP 125/72; PULSE 64; TEMP 36.8; O2SAT 98
[2017-06-19 13:50] VITALS: BP 120/67; PULSE 61; TEMP 36.7; O2SAT 98
== END | disposition home or self-care (01) ==
LOC: C.ACU 08:36
PROVIDERS: ATTEND Urology
DX: N20.1 Calculus of ureter (principal); M19.90 Unspecified osteoarthritis, unspecified site; H40.9 Unspecified glaucoma; I25.2 Old myocardial infarction; I10 Essential (primary) hypertension; E78.5 Hyperlipidemia, unspecified; N40.0 Benign prostatic hyperplasia without lower urinary tract symptoms; K21.9 Gastro-esophageal reflux disease without esophagitis; I25.10 Atherosclerotic heart disease of native coronary artery without angina pectoris; Z87.442 Personal history of urinary calculi; Z79.82 Long term (current) use of aspirin; Z86.718 Personal history of other venous thrombosis and embolism; Z95.5 Presence of coronary angioplasty implant and graft; Z86.79 Personal history of other diseases of the circulatory system

== ENCOUNTER 2023-05-11 10:00 | Observation (INO) ==
--- NOTE | 2023-05-04 14:02 | Anesthesiology Consultation ---
Date of Service May 04, 2023 Assessment & Plan (1) Encounter for pre-operative examination: Plan - cardiology office visit 06/07/22: "...Atherosclerotic coronary disease, status post coronary bypass grafting, February of 2001, receiving TAVAREZ graft to LAD, a saphenous vein graft to the ramus, with sequential graft to the obtuse marginal, saphenous vein graft to the diagonal, and saphenous vein graft to the posterior descending artery...any cardiac complaints. Still remaining physically active. Goes to the gym...Occasional lightheadedness on standing...Chronic stable ischemic heart disease without symptoms...Discontinue metoprolol tartrate. Begin metoprolol succinate 25 mg daily slightly reduced dose. Carotid duplex 6 months...Follow up 12 months..." - Case discussed with Dr. Erickson who advised patient is acceptable to proceed without further evaluation. - Per film sorter on 05/04/23: No known infectious disease contacts, current infectious disease symptoms in past 10 days or COVID positive test result in the past 30 days. Chart Review Chart Review: Acceptable Risk for Surgery and Patient NOT seen in Pre Admission Testing History Surgery Operation Date: 05/11/23 14:35 Proposed Procedures p TURP (Transurethral Resection of the Prostate) - Dutch Coates, Height/Weight Height: 6 ft Weight: 88.904 kg Allergies Allergy/AdvReac Type Severity Reaction Status Date / Time Xcidyjp-VML-VhH Reductase Allergy Unknown MUSCLE Verified 05/04/23 12:08 Inhibitor ACHES [Pcuvqdg-Ktm-Urc Reductase Inhibitor] atorvastatin AdvReac Unknown MUSCLE Verified 05/04/23 12:08 CRAMPS simvastatin AdvReac Unknown MUSCLE Verified 05/04/23 12:08 CRAMPS Medications Home Medications Medication Instructions Recorded Confirmed Last Taken ezetimibe 10 mg tablet (Zetia) 10 mg PO QAM ##0 07/23/07 05/04/23 09/08/20 multivitamin 1 tab PO Q OTHER DAY ##0 07/18/09 05/04/23 09/08/20 levothyroxine 25 mcg tablet 25 mcg PO QAM ##0 11/25/14 05/04/23 09/08/20 metoprolol tartrate 50 mg tablet 100 mg PO QAM #0 tabs 05/21/17 05/04/23 09/07/20 aspirin 81 mg tablet,delayed 81 mg PO Q OTHER DAY ##0 06/07/17 05/04/23 09/07/20 release (Adin Low Dose Aspirin) dorzolamide 2 % eye drops 1 drp OPL BID 04/11/18 05/04/23 09/08/20 latanoprostene bunod 0.024 % eye 1 drp OPB DAILY 09/08/20 05/04/23 Unknown drops (Vyzulta) terazosin 2 mg capsule 2 mg PO HS 09/08/20 05/04/23 09/08/20 finasteride 5 mg tablet 5 mg PO DAILY #90 tabs 06/02/21 05/04/23 Unknown netarsudil 0.02 % eye drops 1 drp OPL DAILY 05/04/23 05/04/23 Unknown (Rhopressa) omeprazole 20 mg capsule,delayed 20 mg PO QAM 05/04/23 05/04/23 Unknown release Past Medical History Medical History (Updated 05/04/23 @ 13:54 by Chantale Cordoba PA-C) Arthritis Benign prostatic hyperplasia Coronary artery disease CABG x 5 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 Nassar Past Surgical History Surgical History History of cardiac cath 2000 --> CABG - [facility] History of colonoscopy History of cystoscopy w/ stone extraction History of esophagogastroduodenoscopy (EGD) History of eye surgery Hx of CABG 5 vessels - 2000 - [facility] - follows [facility]/ dr. nassar Hx of cholecystectomy S/P TURP (status post transurethral resection of prostate) Social History Smoking Status: Never smoker Do You Dip or Chew Tobacco: No Hx Alcohol Use: Yes Alcohol type: beer alcohol intake frequency: holidays/special occasions only Hx Substance Use: No substance use type: does not use Lab Results Anesthesia Preop Results Results Anesthesia Widget: WBC 6.44 K/uL (4.8-10.8) 05/03/23 Hgb 13.3 g/dL L 05/03/23 Hct 40.7 % (42.0-52.0) L 05/03/23 Plt 156 K/uL (130.0-400.0) 05/03/23 Na 140 mmol/L (136-145) 05/03/23 K 4.6 mmol/L (3.5-5.1) 05/03/23 Cl 102 mmol/L (98-107) 05/03/23 CO2 29 mmol/L (21-32) 05/03/23 BUN 17 mg/dL (7-18) 05/03/23 Creat 1.3 mg/dL H 05/03/23 Glucose Level 135 mg/dL H 05/03/23 Urine Appearance Clear 03/29/23 Urine WBC (Auto) 1-5 /hpf (0-5) 03/29/23 Urine RBC (Auto) 0-4 /hpf (0-4) 03/29/23 Urine Hyaline Casts (Auto) 0 /lpf (0-5) 03/29/23 Urine Epithelial Cells (Auto) 0-5 /lpf (0-5) 03/29/23 Urine Bacteria (Auto) Negative (Negative) 03/29/23 Testing Electrocardiogram Date: 06/07/22 Sinus rhythm with 1st degree AV block, rate 60 bpm Inferior infarct, age undetermined Chest X-Ray Date: 05/03/23 No active disease Other Testing Carotid doppler 12/08/22 50-69% stenosis ICAs bilat
[2023-05-11] MEDS: LR 15ML/HR IV SCH (11:00)
[2023-05-11] MEDS ORDERED: fentaNYL citrate PF 100 MCG/2 ML VIAL ONE (11:11)
[2023-05-11] MEDS ORDERED: LIDOCAINE 2% 2 ML VIAL/AMP(20MG/ML) INFIL ONE (11:11)
[2023-05-11] MEDS ORDERED: PROPOFOL IV EMULSION 10 MG/ML 20 ML VIAL IV ONE (11:11)
[2023-05-11] MEDS ORDERED: ONDANSETRON INJ 2 MG/ML 2 ML VIAL ONE (11:11)
[2023-05-11] MEDS ORDERED: DEXAMETHASONE SOD INJ 4 MG/ML VIAL ONE (11:11)
--- NOTE | 2023-05-11 11:48 | History & Physical Bridge Note ---
Date of Service May 11, 2023 History & Physical Bridge Note I have examined the patient, reviewed the History & Physical and in the interval since the performance of the History & Physical I have noted the following changes of clinical significance: no changes noted
[2023-05-11] MEDS ORDERED: ONDANSETRON INJ 2 MG/ML 2 ML VIAL IV PRN ×2 (11:54→14:35)
[2023-05-11] MEDS ORDERED: fentaNYL citrate PF 100 MCG/2 ML VIAL IV PRN (11:54)
[2023-05-11] MEDS ORDERED: ATROPINE SULFATE 0.1 MG/ML 10ML SYR IV PRN (11:54)
[2023-05-11] MEDS ORDERED: ePHEDrine sulfate 50 MG/ML AMP IV PRN (11:54)
[2023-05-11] MEDS: CIPROFLOXACIN / D5W 400 MG/200 ML BAG IV SCH (12:13)
[2023-05-11] MEDS ORDERED: ePHEDrine sulfate 50 MG/ML AMP ONE (12:25)
--- NOTE | 2023-05-11 13:05 | Operative Report ---
PG Post Operative Report Pre & Post Diagnosis Operation Date: 05/11/23 11:55 Pre-Op Diagnosis: Benign Prostatic Hyperplasia with Urinary Obstruction Post-Op Diagnosis: Benign Prostatic Hyperplasia with Urinary Obstruction I identified the patient and participated in the time-out.: Yes Procedure Operation Date: 05/11/23 11:55 Actual Procedures p Transurethral Resection of the Prostate(Not Applicable) - Dutch Coates DO Surgeon Dutch Coates, II, DO Counter Supply Worker None Estimated Blood Loss 5 Findings Consistent with Post-Op Diagnosis Large regrowth of Prostate with obstruction. Most severe regrowth on the left lateral lobe and anterior portion of the prostate with significant projection of tissue into the bladder Specimens Prostate adenoma. Drains 22Fr 3-way Catheter Anesthesia Type General Complications none Disposition Disposition: Recovery Room Indications Patient with obstruction due to prostate enlargement. Risks and benefits discussed at length. Description of Procedure Patient was consented and brought back to the operating room. Patient was placed under anesthesia in the supine position and moved to the dorsal lithotomy position. Patient was prepped and draped in the regular sterile fashion. A time out was completed. A 30degree Cystoscope was placed into the bladder and the entire bladder was examined. The UO's were identified as well as the bladder neck, trigone, dome, and the other important landmarks. The prostatic urethra and large lobes/a denoma was assessed and the veru and bladder neck identified and area/size was assessed. The resection scope was placed and the fine bipolar loop was selected. Starting at the 5 and 7 o'clock positions, a channel was created from bladder neck to the veru. Starting at the 12 o'clock position and sweeping down along the left lateral wall to the 6 o'clock position the prostate tissue was resected down. Some additional tissue was then resected from the 9 to 12 o'clock position. No considerable regrowth was noted otherwise. A large amount of tissue was able to be resected without major issue. The Specimen was removed and sent for analysis. The resection bed and any bleeding areas were fulgurated/cauterized and the entire area inspected. All bleeding was controlled. The bladder was inspected a final time. The bladder was emptied and irrigated. All specimen and debris was removed. The scope was removed with the bladder partially full. A catheter was placed and balloon elevated. This was easily irrigated. The patient was cleaned, aroused from anesthesia, and transferred to the pacu in stable condition having tolerated the procedure well with no complications. I was present and participated in all aspects of the procedure. The patient will be monitored in the PACU until transferred. Will plan to maintain catheter and observe overnight. Will have patient follow- up in approximately 1 week for catheter removal after discharge. I attest to the content of the Intraoperative Record and any orders documented therein. Any exceptions are noted below.
[2023-05-11 13:31] LABS: Basophils # (auto) 0.04 K/uL (0.00-0.20); Basophils % (auto) 0.6 %; Eosinophils # (auto) 0.16 K/uL (0.00-0.50); Eosinophils % (auto) 2.4 %; Hematocrit (blood only) 37.4 % (42.0-52.0); Hemoglobin 12.5 g/dl (14.0-18.0); Immature Granulocytes # (auto) 0.03 K/uL (0.01-0.20); Immature Granulocytes % (auto) 0.4 %; Lymphocytes # (auto) 1.74 K/uL (1.20-3.40); Lymphocytes % (auto) 25.7 %; Mean Corpuscular Hemoglobin 29.9 pg (25.0-34.0); Mean Corpuscular Hgb Conc 33.4 g/dL (32.0-36.0); Mean Corpuscular Volume 89.5 fL (80.0-100.0); Mean Platelet Volume 10.5 fL (9.4-12.4); Monocytes # (auto) 0.66 K/uL (0.11-0.59); Monocytes % (auto) 9.7 %; Neutrophils # (auto) 4.14 K/uL (1.40-6.50); Neutrophils % (auto) 61.2 %; Platelet Count 129 K/uL (130-400); RDW Coefficient of Variation 14.8 % (11.5-14.5); RDW Standard Deviation 47.8 fL (36.4-46.3); Red Blood Count 4.18 M/uL (4.70-6.10); White Blood Count 6.77 K/ul (4.8-10.8)
--- NOTE | 2023-05-11 13:57 | Anesthesiology Progress Note ---
Date of Service May 11, 2023 Anesthesia Post Procedure Vital Signs Vital Signs: Temp Pulse Pulse Resp BP BP Pulse Ox 05/11/23 13:40 62 18 134/73 97 05/11/23 13:30 97.7 F 62 16 132/81 96 05/11/23 13:20 60 15 137/80 100 05/11/23 13:10 63 12 139/73 100 05/11/23 13:03 97.3 F L 65 16 145/74 H 99 05/11/23 10:25 97.9 F 67 20 158/77 H 99 O2 Del Method O2 Flow Rate 05/11/23 13:40 Room Air 05/11/23 13:30 Room Air 05/11/23 13:20 Room Air 05/11/23 13:10 Oxymask 4 05/11/23 13:03 Oxymask 6 05/11/23 10:25 Room Air Transfer of Care Handoff Completed per policy Notes Mental Status: alert / awake / arousable and participated in evaluation Patient Amnestic to Procedure: Yes Nausea / Vomiting: adequately controlled Pain: adequately controlled Airway Patency, RR, SpO2: stable & adequate BP & HR: stable & adequate Hydration State: stable & adequate Anesthetic Complications: no major complications apparent and Pt Satisfied with anesthetic care
[2023-05-11 14:05] LABS: BUN Creatinine Ratio 13.8 (10-20); Calcium 8.7 mg/dl (8.6-10.3); Creatinine Clr Calc Pharmacy 50.2 ml/min; Est GFR (African American) 65.7 ml/min; Est GFR (Non-African American) 56.7 ml/min
[2023-05-11] MEDS ORDERED: oxyCODONE HCL IR 5 MG TAB (IMMEDIATE RELEASE) PO PRN ×2 (14:35)
[2023-05-11] MEDS ORDERED: ACETAMINOPHEN 325 MG TAB PO PRN (14:35)
[2023-05-11] MEDS: LACTATED RINGER'S 1,000 ML IV SCH (14:57)
[2023-05-11] MEDS: ceFAZolin 2000MG 2,000 MG/15 ML SYR IV SCH (15:30)
[2023-05-11] MEDS: TERAZOSIN HCL 1 MG CAP PO SCH (19:43)
--- OUTSIDE RECORDS SUMMARY | 2023-05-11 22:40 | External Medical Summary | Summary of Care ---
Author Name Unknown Organization [facility] Address [address] [place] [address] Phone [phone] Care Team Providers Care Forest Ranger Technician Name Role Phone Gin Ledesma MD Primary Care Provider + Reason for Visit * Reason Onset Date Comments Information 05/02/2023 Encounter Details Date Type Department Care Team (Late st Contact Info) Description 05/02/2023 Telephone Cardiology, [facility] [address] [place] [id number] Vivek Nassar MD [address] [place] [id number] Information Allergies Active Allergy Reactions Criticality Noted Date Comments Rosuvastatin Calcium Muscle pain 10/23/2009 Statins 07/19/2005 MYALGIAS --Mevacor, Zocor, Lipitor Crestor documented as of this encounter (statuses as of 05/03/2023) Medications Medication Sig Dispensed Refills Start Date End Date Status MULTI-VITAMIN TABS OR Take 1 Tablet by mouth once a day on Monday, Monday, and Monday only. 0 Active ASPIRIN EC LOW STRENGTH 81 MG PO TBEC Take by mouth once a day on Monday, , Monday, and Monday only . 34 11 03/06/2006 Active dorzolamide (TRUSOPT OCUMETER PLUS) 2 % ophthalmic solution 0 03/09/2018 Active prednisolone acetate (PRED FORTE) 1 % ophthalmic suspension Instill 1 Drop into the right eye in the morning. 0 10/25/2018 Active Vyzulta 0.024 % Ophthalmic Solution (Latanoprostene Bunod) Instill into eye. One drop left eye at bedtime. 0 Active Rhopressa 0.02 % Ophthalmic Solution (Netarsudil Dimesylate) Instill into eye. 0 Active Metoprolol Succinate ER 25 MG Oral Tablet Extended Release 24 Hour (Toprol XL) Take 1 Tablet by mouth in the morning. 90 Tablet 3 06/07/2022 Active Terazosin HCl 2 MG Oral Capsule TAKE 1 CAPSULE AT BEDTIME 90 Capsule 10 11/17/2022 Active Levothyroxine Sodium 25 MCG Oral Tablet (Levoxyl)Indicatio ns:Hypothyroidism TAKE 1 TABLET DAILY AT LEAST 30 MINUTES PRIOR TO BREAKFAST OR OTHER MEDICATIONS 90 Tablet 10 12/26/2022 Active Finasteride 5 MG Oral Tablet (Proscar) TAKE 1 TABLET EVERY MORNING 90 Tablet 2 02/20/2023 Active Omeprazole 20 MG Oral Capsule Delayed Release (PriLOSEC) TAKE 1 CAPSULE DAILY 1 HOUR BEFORE THE FIRST MEAL OF THE DAY 90 Capsule 3 04/18/2023 Active Ezetimibe 10 MG Oral Tablet (Zetia)Indications :Coronary atherosclerosis,An aníbal pectoris (HCC),Hyperlipidem ia LDL goal <100 TAKE 1 TABLET EVERY DAY 90 Tablet 3 04/21/2023 Active documented as of this encounter (statuses as of 05/03/2023) Active Problems Problem Noted Date Diagnosed Date Prediabetes 06/18/2018 Overview: Per Prediabetes protocol #1 PAF (paroxysmal atrial fibrillation) 06/08/2017 BPH without obstruction/lower urinary tract symp toms 08/19/2005 ADVANCE DIRECTIVE INFORMATION 07/13/2004 Overview: No, Advance Directive brochure offered , patient declined. History of colonic polyps 10/08/2003 Overview: 10/10 Colonoscopy: Impression: - Diverticulosis. - The exam was otherwise normal to the cecum. Recommendation: - Repeat colonoscopy for surveillance in 5 years ICD-10 update of inactive term CORONARY ATHEROSCLEROSIS OF UNSPECIFIED TYPE OF VESSEL, [place] OR GRAFT History of peptic ulcer ANGINA PECTORIS NEC-NOS Overview: CABG x5 02/2001 [facility] Heath EKG: old IWMI changes and IRBBB Aortocoronary bypass status HTN, goal below 140/90 Hyperlipidemia LDL goal <100 documented as of this encounter (statuses as of 05/03/2023) Resolved Problems Problem Noted Date Diagnosed Date Resolved Date Kidney disease, chronic, sta ge III (GFR 30-59 ml/min) 04/01/2013 01/13/2014 Overview: Per CKD protocol #1 Dyslipidemia, goal LDL below 100 01/15/2009 05/31/2018 Overview: Per Lipid Taxonomy. Dysphagia 08/01/2003 05/31/2018 Overview: Video swallowing 2003 [facility] [place] Pt exercises caution peanuts, potato chips, pretzels etc EGD 10/10: Impression: - Hiatus hernia. - Non-bleeding erythematous gastropathy. - Normal examined duodenum. Recommendation: - Use Prilosec (omeprazole) at 40 mg PO QD. ICD-10 update of inactive term Other seborrheic keratosis 11/06/2001 0 05/31/2018 Seborrheic dermatitis 11/06/20012018 Overview: ICD-10 update of inactive term Esophagitis 05/31/2018 Overview: ICD-10 update of inactive term Pneumonia due to other virus not elsewhere classified 05/31/2018 DIVERTICULITIS OF COLON 05/08 HELICOBACTER PYLORI (H. PYLORI) INFECTION 05/29/2018 DIVERTICULOSIS OF COLON 05/08 Dermatophytosis of nail 05/08 Dyslipidemia, goal to be determined 01/15/2009 Overview: Per Lipid Taxonomy. documented as of this encounter (statuses as of 05/03/2023) Immunizations Name Administration Dates Next Due COVID-19 mRNA, LNP-s, No Pre serve, 2-Dose Series (Moderna) 03/27/2020,02/29/2020 Pneumococcal Conjugate Vacc, 13 Valent (Prevnar) 10/31/2014 Pneumococcal Polysaccharide PPV23 (Pneumovax) 08/19/2005 Seasonal Influenza, Quadriva lent Hd (Fluzone Hd) 11/25/2021 Seasonal Influenza, Quadriva lent, No Preserve, IM 11/15/2019,11/14/2017,10/31/2014 Seasonal Influenza, Split, I IV3, With Preserve, Inj 12/15/2016,11/14/2013,12/09/2012,11/08,10/28/2010,11/24/2009,10/24/2008 ,11/12/2007,12/13/2006 TD - Tetanus/Diptheria (ADULT) 07/18/2009 TD, Preservative Free 07/18/2009,04/07/1999 TDAP (age 11 and older)(Adacel) 12/07/2018 documented as of this encounter Social History Tobacco Use Types Packs/Day Years Used Date Smoking Tobacco: Never Smokeless Tobacco: Never Alcohol Use Standard Drinks/Week Comments No 0 (1 standard drink = 0.6 oz pur e alcohol) PHQ-2 Answer Date Recorded PHQ Adult Total Score 0 03/07/2023 Hunger Vital Sign Answer Date Recorded Within the past 12 months, y ou worried that your food would run out before you got the money to buy more. Never true 08/19/19 21 Within the past 12 months, t he food you bought just didn't last and you didn't have money to get more. Never true 08/18/2020 Sex and Gender Information Value Date Recorded Sex Assigned at Male 05/31/2018 8:56 AM EDT Gender Identity Male 05/31/2018 8:56 AM EDT Sexual Orientation Straight 05/31/2018 8: 56 AM EDT Job Start Date Occupation Industry Not on file Not on file Not on file documented as of this encounter Miscellaneous Notes * Telephone Encounter - Vidya Partida LPN - 05/03/2023 12:30 PM EDT LMOM for pt to return call to clinic for info in this encounter. Faxed to Dr. Coates office. * Telephone Encounter - Micheline Mike CRNP - 05/02/2023 8:10 PM EDT Reviewed in coverage of Dr. Nassar Patient's chart has been reviewed. Patient may hold his ASA therapy 5 days prior to TURP procedure and should resume on post op day one. Thank you, ORIANA Bullock * Telephone Encounter - Vidya Partida LPN - 05/02/2023 1:49 PM EDT Pt is scheduled for TURP on 05/10 with Dutch Coates DO. Asking if he can hold his aspirin 5-7 days prior to procedure. documented in this encounter Plan of Treatment Health Maintenance Due Date Last Done Comments Zoster Vaccines (1 of 2) 1987 COVID-19 Vaccine ( season) 2022 03/27/2020, 02/29/2020 Influenza Vaccine (FLU shot) (#1) 2022 11/25/2021, 11/15/2019, 11/14/2017, Additional history exists TSH 09/02/2023 09/01/2022, 08/07, 08/20/2020, Additional history exists Depression Screening 03/07/2024 03/07/2023 HbA1c 03/07/2024 03/07/2023, 02/07, 2021, Additional history exists Albumin/Creatinine Ratio 03/01/2025 023, 02/11/2020, 06/06/2018, Additional history exists DTaP,Tdap,and Td Vaccines (2 - Td or Tdap) 12/07/2028 12/07/2018, 07/18/2009, 07/18/2009, Additional history exists Pneumococcal Vaccine: 65+ Years Completed 10/31/2014, 08/19/2005, 10/17/1997 GARDASIL-HPV IMMUNIZATION SERIES Aged Out No longer eligible based on patient's age to complete this topic Hepatitis B Aged Out No longer eligi ble based on patient's age to complete this topic MENINGOCOCCAL (MENACTRA/MENVEO) Aged Out No longer eligible based on patient's age to complete this topic documented as of this encounter Medical Devices Not on filedocumented as of this encounter Care Teams Forest Ranger Technician Relationship Specialty Start Date End Date Gin Ledesma MD [address] [place] [address] [place] [address] PCP - General 06/13/08 documented as of this encounter
--- OUTSIDE RECORDS SUMMARY | 2023-05-11 22:40 | External Medical Summary | Summary of Care ---
Author Name Unknown Organization [facility] Address [address] [place] [address] Phone [phone] Care Team Providers Care Customer Engineer Name Role Phone Gin Ledesma MD Primary Care Provider + Reason for Visit * Reason Onset Date Comments Information 05/02/2023 Encounter Details Date Type Department Care Team (Late st Contact Info) Description 05/02/2023 Telephone Cardiology, [facility] [address] [place] [address] Vivek Nassar MD [address] [place] [id number] Information Allergies Active Allergy Reactions Criticality Noted Date Comments Rosuvastatin Calcium Muscle pain 10/23/2009 Statins 07/19/2005 MYALGIAS --Mevacor, Zocor, Lipitor Crestor documented as of this encounter (statuses as of 05/04/2023) Medications Medication Sig Dispensed Refills Start Date [...] as of this encounter (statuses as of 05/04/2023) Active Problems Problem Noted Date Diagnosed Date [...] CORONARY ATHEROSCLEROSIS OF UNSPECIFIED TYPE OF VESSEL, [place] OR GRAFT History of peptic ulcer ANGINA PECTORIS NEC-NOS Overview: CABG x5 02/[address] [place] [address] Heath EKG: old IWMI changes and IRBBB Aortocoronary bypass status HTN, goal below 140/90 Hyperlipidemia LDL goal <100 documented as of this encounter (statuses as of 05/04/2023) Resolved Problems Problem Noted Date Diagnosed Date Resolved Date Kidney disease, chronic, sta ge III (GFR 30-59 ml/min) 04/01/2013 01/13/2014 Overview: Per CKD protocol #1 Dyslipidemia, goal LDL below 100 01/15/2009 05/31/2018 Overview: Per Lipid Taxonomy. Dysphagia 08/01/2003 05/31/2018 Overview: Video swallowing 2003 [facility] [place] Pt exercises caution peanuts, potato chips, [...] as of this encounter (statuses as of 05/04/2023) Immunizations Name Administration Dates Next Due COVID-19 mRNA, LNP-s, No Pre serve, 2-Dose Series (Moderna) 03/27/2020,02/29/2020 Influenza, Whole Virus 02/15/2000 Pneumococcal Conjugate Vacc, 13 Valent (Prevnar) 10/31/2014 Pneumococcal Polysaccharide PPV23 (Pneumovax) 08/19/2005,10/17/1997 Seasonal Influenza, Quadriva lent Hd (Fluzone Hd) 11/25/2021 Seasonal Influenza, Quadriva lent, No Preserve, IM 11/15/2019,11/14/2017,10/31/2014 Seasonal Influenza, Split, I IV3, With Preserve, Inj 12/15/2016,11/14/2013,12/09/2012,11/08,10/28/2010,11/24/2009,10/24/2008 ,11/12/2007,12/13/2006,12/28/2004,02/07,12/20/2002 TD - Tetanus/Diptheria (ADULT) 07/18/2009,1999 TD, Preservative Free 07/18/2009,04/07/1999 TDAP (age 11 [...] encounter Miscellaneous Notes * Telephone Encounter - Noé Clarke RN - 05/04/2023 12:28 PM EDT Spoke to the patient and reviewed the message with I'm from Micheline Mike in regards to the stoppage of his ASA for surgery. * Telephone Encounter - Vidya Partida LPN [...] filedocumented as of this encounter Care Teams Customer Engineer Relationship Specialty Start Date End Date Gin Ledesma MD [address] [place] [address] PCP - General 06/13/08 documented as of this encounter
--- OUTSIDE RECORDS SUMMARY | 2023-05-11 22:40 | External Medical Summary | Summary of Care ---
Author Name Unknown Organization [facility] Address [address] [place] [address] Phone [phone] Care Team Providers Care Cnc Router Operator Name Role Phone Gin Ledesma MD Primary Care Provider + Reason for Visit * Reason Comments Outpatient Testing Encounter Details Date Type Department Care Team (Late st Contact Info) Description 05/03/2023 9:30 AM EDT Laboratory Laboratory [facility] [address] [place] [id number] [place], [address] [place] [id number] Benign localized hyperplasia of prostate with urinary obstruction; Obstructive nephropathy; Hematuria, microscopic Allergies Active Allergy Reactions Criticality Noted Date [...] CORONARY ATHEROSCLEROSIS OF UNSPECIFIED TYPE OF VESSEL, [place] OR GRAFT History of peptic ulcer ANGINA PECTORIS NEC-NOS Overview: CABG x5 02/2001 [facility] [place] Dr. Heath EKG: old IWMI changes and [...] Dysphagia 08/01/2003 05/31/2018 Overview: Video swallowing 2003 [facility] Pt exercises caution peanuts, potato chips, pretzels [...] on file documented as of this encounter Plan of Treatment Pending Results Name Type Priority Associated Diagnoses Date /Time CBC WITH WBC DIFFERENTIAL Lab Routine Benign localized hyperplasia of prostate with urinary obstruction Obstructive nephropathy Hematuria, microscopic 05/03/2023 9:26 AM EDT BASIC METABOLIC PANEL Lab Routine Benign localized hyperplasia of prostate with urinary obstruction Obstructive nephropathy Hematuria, microscopic 05/03/2023 9:26 AM EDT CBC Lab Routine Benign localized hyperplasia of prostate with urinary obstruction Obstructive nephropathy Hematuria, microscopic 05/03/2023 9:26 AM EDT DIFFERENTIAL, AUTOMATED Lab Routine Benign localized hyperplasia of prostate with urinary obstruction Obstructive nephropathy Hematuria, microscopic 05/03/2023 9:26 AM EDT CULTURE, URINE, QUANTITATIVE Lab Routine Benign localized hyperplasia of prostate with urinary obstruction Obstructive nephropathy Hematuria, microscopic 05/03/2023 9:30 AM EDT Health Maintenance Due Date Last Done Comments Zoster Vaccines (1 of 2) 1987 COVID-19 Vaccine (3 - season) 2022 03/27/2020, 02/29/2020 Influenza Vaccine (FLU [...] Not on filedocumented as of this encounter Visit Diagnoses Diagnosis Benign localized hyperplasia of prostate with urinary obstruction Benign localized hyperplasia of prostate with urinary obstruction and other lower urinary tract symptoms (LUTS) Obstructive nephropathy Other specified disorder of kidney and ureter Hematuria, microscopic Microscopic hematuria documented in this encounter Care Teams Cnc Router Operator Relationship Specialty Start Date End Date Gin Ledesma MD [address] [facility] [place] [address] PCP - General 06/13/08 documented as of this encounter
--- OUTSIDE RECORDS SUMMARY | 2023-05-11 22:41 | External Medical Summary | Summary of Care ---
Author Name Unknown Organization [facility] Address [address] [place] [address] Phone [phone] Care Team Providers Care Obstetrical Anesthesiologist Name Role Phone Gin Ledesma MD Primary Care Provider + Reason for Visit * Reason Comments Outpatient Testing Encounter Details Date Type Department Care Team (Late st Contact Info) Description 05/03/2023 9:30 AM EDT Laboratory Laboratory [facility] [address] [place] [id number] [place], [address] [place] [address] Benign localized hyperplasia of prostate with urinary [...] CORONARY ATHEROSCLEROSIS OF UNSPECIFIED TYPE OF VESSEL, [place] OR GRAFT History of peptic ulcer ANGINA PECTORIS NEC-NOS Overview: CABG x5 02[place] [facility] [place] EKG: old [...] Dysphagia 08/01/2003 05/31/2018 Overview: Video swallowing 2003 [facility] Pt exercises caution peanuts, potato chips, pretzels [...] hematuria documented in this encounter Care Teams Obstetrical Anesthesiologist Relationship Specialty Start Date End Date Gin Ledesma MD [address] [facility] [place] [address] PCP - General 06/13/08 documented as of this encounter
--- OUTSIDE RECORDS SUMMARY | 2023-05-11 22:41 | External Medical Summary ---
Author Name Unknown Address Unknown Organization [id number]:[facility] [place] [address] Laboratory Report Ordering Provider Test Date Status CALE LEON II 05/03/2023 09:26:46 Final Observation Date Value Abnormality Reference (Units ) Status WBC, Total 05/03/2023 09:26:46 6.44 4.00-10.8 0 (K/uL) Final RBC 05/03/2023 09:26:46 4.42 4.50-5.25 (M/uL) Final Hemoglobin 05/03/2023 09:26:46 13.3 Below low normal 14 .0-16.8 (g/dL) Final HCT 05/03/2023 09:26:46 40.7 40.0-48.4 (%) Final MCV 05/03/2023 09:26:46 92.1 82.0-99.5 (fL) Final MCH 05/03/2023 09:26:46 30.1 27.0-34.0 (pg) Final MCHC 05/03/2023 09:26:46 32.7 32.0-36.0 (g/dL) Final RDW 05/03/2023 09:26:46 15.5 11.5-15.5 (%) Final Platelets 05/03/2023 09:26:46 156 140-400 (K /uL) Final MPV 05/03/2023 09:26:46 10.8 6.6-11.1 ( fL) Final Performing Location [facility] [place] [address]
--- OUTSIDE RECORDS SUMMARY | 2023-05-11 22:41 | External Medical Summary ---
Author Name Unknown Address Unknown Organization [id number]:[facility] - [address] [place] [id number] Laboratory Report Ordering Provider Test Date Status CALE LEON II 05/03/2023 09:30:04 Final Observation Date Value Abnormality Reference (Units) Status Bacteria identified in Specimen by Culture 05/03/2023 09:30:04 No significant growth Final Test: Culture, Urine, Quanti tative
Specimen Source: Urine, Clean Catch
Specimen Type: Urine
Specimen Date: 05/03/2023 9:30 AM
Result Date: 05/04/2023 10:43 AM
Result Status: Final result
Resulting Lab: [facility]
[address]
[facility]

CULTURE

No significant growth

null Performing Location [facility] - [address] [facility] [address]
--- OUTSIDE RECORDS SUMMARY | 2023-05-11 22:41 | External Medical Summary ---
Author Name Unknown Address Unknown Organization [id number]:[facility] [place] [address] Laboratory Report Ordering Provider Test Date Status CALE LEON II 05/03/2023 09:26:46 Final Observation Date Value Abnormality Reference (Units ) Status SYNC LEUKOCYTES IN BLOOD BY AUTOMATED COUNT 05/03/2023 09:26:46 6.44 4.00-10.80 (K/uL) Final Neutrophils/100 leukocytes in Blood by Manual count 05/03/2023 09:26:46 66.0 40.0-75.0 (%) Final Lymphocytes/100 leukocytes in Blood by Manual count 05/03/2023 09:26:46 24.0 18.0-42.0 (%) Final Monocytes/100 leukocytes in Blood by Manual count 05/03/2023 09:26:46 7.0 1.0-11.0 (%) Final Eosinophils/100 leukocytes in Blood by Manual count 05/03/2023 09:26:46 2.0 0.0-6.0 (%) Final Metamyelocytes/100 leukocytes in Blood by Manual count 05/03/2023 09:26:46 1.0 Above high normal <=0.0 (%) Final Neutrophils [#/volume] in Blood by Manual count 05/03/2023 09:26:46 4.25 1.80-7.70 (K/uL) Final Lymphocytes [#/volume] in Blood by Manual count 05/03/2023 09:26:46 1.55 1.00-4.80 (K/uL) Final Monocytes [#/volume] in Blood by Manual count 05/03/2023 09:26:46 0.45 0.00-1.10 (K/uL) Final Eosinophils [#/volume] in Blood by Manual count 05/03/2023 09:26:46 0.13 0.00-0.70 (K/uL) Final Metamyelocytes [#/volume] in Blood by Manual count 05/03/2023 09:26:46 0.06 Above high normal <=0.00 (K/uL) Final Nucleated erythrocytes/100 leukocytes [Ratio] in Blood by Automated count 05/03/2023 09:26:46 Final Performing Location [facility] [place] [address]
--- OUTSIDE RECORDS SUMMARY | 2023-05-11 22:41 | External Medical Summary ---
Author Name Unknown Address Unknown Organization K09:[facility] [place] [address] Laboratory Report Ordering Provider Test Date Status CALE LEON II 05/03/2023 09:26:46 Final Observation Date Value Abnormality Reference (Units ) Status BUN 05/03/2023 09:26:46 17 6-20 (mg/dL) Final Creatinine 05/03/2023 09:26:46 1.3 Above high normal 0.6-1.2 (mg/dL) Final Glomerular filtration rate/1.73 sq M.predicted [Volume Rate/Area] in Serum, Plasma or Blood by Creatinine-based formula (CKD-EPI) 05/03/2023 09:26:46 56 Below low normal >=60 (mL/min) Final eGFR is calculated based on the CKD-EPI 2020 equation Sodium 05/03/2023 09:26:46 140 135-146 (m mol/L) Final Potassium 05/03/2023 09:26:46 4.6 3.5-5.1 (m mol/L) Final Cl 05/03/2023 09:26:46 102 98-107 (mm ol/L) Final CO2 05/03/2023 09:26:46 29 22-32 (mmo l/L) Final Anion gap 05/03/2023 09:26:46 9 7-15 (mmol /L) Final Glucose 05/03/2023 09:26:46 135 Above high normal 70 -120 (mg/dL) Final Calcium 05/03/2023 09:26:46 9.3 8.4-10.2 ( mg/dL) Final Performing Location [facility] [place] [address]
--- OUTSIDE RECORDS SUMMARY | 2023-05-11 22:41 | External Medical Summary | Summary of Care ---
Author Name Unknown Organization [facility] Address [address] [place] [address] Phone [phone] Care Team Providers Care Cut Out Machine Operator Name Role Phone Gin Ledesma MD Primary Care Provider + Encounter Details Date Type Department Care Team (Late st Contact Info) Description 05/02/2023 Orders Only Laboratory [facility] [place] [address] [facility] [address] [place], [address] [place] [address] Benign localized hyperplasia of prostate with urinary obstruction*; Obstructive nephropathy; Hematuria, microscopic Allergies Active Allergy Reactions Criticality Noted Date Comments Rosuvastatin Calcium Muscle pain 10/23/2009 Statins 07/19/2005 MYALGIAS --Mevacor, Zocor, Lipitor Crestor documented as of this encounter (statuses as of 05/02/2023) Medications Medication Sig Dispensed Refills Start Date [...] as of this encounter (statuses as of 05/02/2023) Active Problems Problem Noted Date Diagnosed Date [...] CORONARY ATHEROSCLEROSIS OF UNSPECIFIED TYPE OF VESSEL, [place] OR GRAFT History of peptic ulcer 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 Heath EKG: old IWMI changes and IRBBB Aortocoronary bypass status HTN, goal below 140/90 Hyperlipidemia LDL goal <100 documented as of this encounter (statuses as of 05/02/2023) Resolved Problems Problem Noted Date Diagnosed Date Resolved Date Kidney disease, chronic, sta ge III (GFR 30-59 ml/min) 04/01/2013 01/13/2014 Overview: Per CKD protocol #1 Dyslipidemia, goal LDL below 100 01/15/2009 05/31/2018 Overview: Per Lipid Taxonomy. Dysphagia 08/01/2003 05/31/2018 Overview: Video swallowing 2003 [facility] [place] Pt exercises caution peanuts, potato chips, [...] as of this encounter (statuses as of 05/02/2023) Immunizations Name Administration Dates Next Due COVID-19 [...] as of this encounter Plan of Treatment Scheduled Orders Name Type Priority Associated Diagnoses Orde r Schedule CULTURE, URINE, QUANTITATIVE Lab Routine Benign localized hyperplasia of prostate with urinary obstruction Obstructive nephropathy Hematuria, microscopic Expected: 05/02/2023, Expires: 05/01/2024 CBC WITH WBC DIFFERENTIAL Lab Routine Benign localized hyperplasia of prostate with urinary obstruction Obstructive nephropathy Hematuria, microscopic Expected: 05/02/2023, Expires: 05/01/2024 BASIC METABOLIC PANEL Lab Routine Benign localized hyperplasia of prostate with urinary obstruction Obstructive nephropathy Hematuria, microscopic Expected: 05/02/2023, Expires: 05/01/2024 Health Maintenance Due Date Last Done Comments [...] Benign localized hyperplasia of prostate with urinary obstruction- Primary Benign localized hyperplasia of prostate with urinary obstruction and other lower urinary tract symptoms (LUTS) Obstructive nephropathy Other specified disorder of kidney and ureter Hematuria, microscopic Microscopic hematuria documented in this encounter Care Teams Cut Out Machine Operator Relationship Specialty Start Date End Date Gin Ledesma MD [address] [facility] [place] [address] PCP - General 06/13/08 documented as of this encounter
--- OUTSIDE RECORDS SUMMARY | 2023-05-11 22:41 | External Medical Summary | Summary of Care ---
Author Name Unknown Organization [facility] Address [address] [place] [address] Phone [phone] Care Team Providers Care Acoustic Engineer Name Role Phone Gin Ledesma MD Primary Care Provider + Encounter Details Date Type Department Care Team (Late st Contact Info) Description 05/02/2023 Orders Only Laboratory [facility] [place] [address] [facility] [address] [place], [address] [place] [address] Benign localized hyperplasia of prostate with urinary [...] CORONARY ATHEROSCLEROSIS OF UNSPECIFIED TYPE OF VESSEL, [place] OR GRAFT History of peptic ulcer 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 Heath EKG: old IWMI changes and [...] hematuria documented in this encounter Care Teams Acoustic Engineer Relationship Specialty Start Date End Date Gin Ledesma MD [address] [place] [address] PCP - General 06/13/08 documented as of this encounter
[2023-05-11] MEDS: DOCUSATE SODIUM 100 MG CAP PO SCH (23:44)
[2023-05-11] MEDS: DORZOLAMIDE HCL 2% OPH SOLN 10 ML BTL OPL SCH (23:45)
[2023-05-12] MEDS: LEVOTHYROXINE SODIUM 25 MCG TABLET PO SCH (04:48)
[2023-05-12] MEDS: PANTOprazole 40 MG TAB PO SCH (07:36)
[2023-05-12] MEDS: METOPROLOL TARTRATE 100 MG TAB PO SCH (07:36)
[2023-05-12] MEDS: EZETIMIBE 10 MG TAB PO SCH (07:37)
--- NOTE | 2023-05-12 08:25 | Urology Progress Note ---
Date of Service May 12, 2023 Assessment & Plan (1) Benign prostatic hyperplasia with urinary obstruction: Plan POD #1 s/p TURP - Doing well, progressing as expected - Afebrile and hemodynamically stable. - Labs reviewed- WBC 16.91, hemoglobin 12.5, creatinine 1.20. - 3 way Mota catheter intact, patent and draining clear yellow urine with CBI on slow. - CBI clamped @0745, nursing aware - will reassess later this AM - Maintain Mota catheter - Encourage ambulation. - Continue diet. - Will stop IV fluids. - Anticipate home with Mota catheter later today presuming urine appropriate and he continues to progress as expected - Patient reassessed. - Urine remains clear off CBI. - He remains afebrile and hemodynamically stable. - No reported pain. - Tolerated diet. - Ambulated without issue. - Eager for discharge home today. - Patient stable for discharge home on postop day #1 with a Mota catheter in place. - Discharge instructions were reviewed, all questions were answered. Admission and Anticipated Discharge Date Admission Date: May 11, 2023 Subjective Patient examined at bedside this AM. Awake, resting in bed on arrival. No acute distress. Mota intact and draining clear yellow urine with CBI on slow. Denies any pain or discomfort. Denies fever, chills, nausea, vomiting. Eager for discharge home today. Review of Systems Constitutional: as per Subjective / HPI Genitourinary: + as per Subjective / HPI Physical Exam Constitutional: no acute distress Respiratory: no respiratory distress and no labored breathing Musculoskeletal: Head/Neck/Chest: normocephalic Skin: No visible rashes or lesions to exposed skin areas Neurologic: awake Psychiatric: A+Ox3, euthymic affect Genitourinary: Mota intact w/CBI Results & Data Vital Signs (Past 12 Hours) Vital Signs Temp Pulse Resp BP Pulse Ox O2 Del Method 05/12/23 03:53 36.8 C 87 16 113/68 95 Room Air 05/11/23 23:51 36.7 C 86 18 105/61 95 Room Air 05/11/23 19:38 36.4 C L 80 18 128/74 95 Room Air PG Care Time/CCT Total # of Minutes Spent Total Time Spent with Patient: Total time spent is greater than 50% in coordination of care (as documented) at patient's floor/unit and/or counseling patient: Coding Level of Care Code None Diagnoses Benign prostatic hyperplasia with urinary obstruction N40.1; N13.8
[2023-05-12 08:56] LABS: Anion Gap 7 (3-11); BUN Creatinine Ratio 14.2 (10-20); Blood Urea Nitrogen 17 mg/dl (6-23); Calcium 8.8 mg/dl (8.6-10.3); Carbon Dioxide 28 mmol/L (21-32); Chloride 102 mmol/L (98-107); Creatinine Clr Calc Pharmacy 48.5 ml/min; Est GFR (African American) 63.1 ml/min; Est GFR (Non-African American) 54.4 ml/min; Glucose 114 mg/dl (70-99(Fasting)); Sodium 137 mmol/L (136-145)
[2023-05-12 09:13] LABS: Basophils # (auto) 0.03 K/uL (0.00-0.20); Basophils % (auto) 0.2 %; Eosinophils # (auto) 0.29 K/uL (0.00-0.50); Eosinophils % (auto) 1.7 %; Hematocrit (blood only) 37.5 % (42.0-52.0); Hemoglobin 12.5 g/dl (14.0-18.0); Immature Granulocytes # (auto) 0.26 K/uL (0.01-0.20); Immature Granulocytes % (auto) 1.5 %; Lymphocytes # (auto) 0.37 K/uL (1.20-3.40); Lymphocytes % (auto) 2.2 %; Mean Corpuscular Hemoglobin 29.8 pg (25.0-34.0); Mean Corpuscular Hgb Conc 33.3 g/dL (32.0-36.0); Mean Corpuscular Volume 89.5 fL (80.0-100.0); Mean Platelet Volume 10.5 fL (9.4-12.4); Monocytes # (auto) 1.04 K/uL (0.11-0.59); Monocytes % (auto) 6.2 %; Neutrophils # (auto) 14.92 K/uL (1.40-6.50); Neutrophils % (auto) 88.2 %; Platelet Count 127 K/uL (130-400); RDW Coefficient of Variation 14.9 % (11.5-14.5); RDW Standard Deviation 47.8 fL (36.4-46.3); Red Blood Count 4.19 M/uL (4.70-6.10); White Blood Count 16.91 K/ul (4.8-10.8)
--- NOTE | 2023-05-12 15:01 | Discharge Summary ---
Date of Service May 12, 2023 Admission HPI Per Admitting Provider 88-year-old male with BPH with urinary obstruction admitted for transurethral resection of the prostate with Dr. Coates Admission Exam Per Admitting Provider General: Alert in no acute distress. HEENT: Normocephalic Atraumatic. Inspection normal. Psychologic: Normal affect. Respiratory: Nonlabored. Cardiovascular: No tachycardia Skin: [place] and Dry. Principal Diagnosis BPH with urinary obstruction Discharge Exam Constitutional no acute distress Respiratory no respiratory distress and no labored breathing Musculoskeletal Head/Neck/Chest: normocephalic Neurologic awake Psychiatric A+Ox3, euthymic affect Genitourinary Mota intact and draining clear yellow urine Discharge Data Allergies Allergy/AdvReac Type Severity Reaction Status Date / Time [id number]-[id number]-FbG Reductase Allergy Unknown MUSCLE Verified 05/11/23 10:35 Inhibitor ACHES [Wzbmusd-Vsx-Xbz Reductase Inhibitor] atorvastatin AdvReac Unknown MUSCLE Verified 05/11/23 10:35 CRAMPS simvastatin AdvReac Unknown MUSCLE Verified 05/11/23 10:35 CRAMPS Procedures Performed Operation Date: 05/11/23 11:55 Actual Procedures p Transurethral Resection of the Prostate(Not Applicable) - Dutch Coates, DO Hospital Course (1) Benign prostatic hyperplasia with urinary obstruction: Plan POD #1 s/p TURP - Doing well, progressing as expected - Afebrile and hemodynamically stable. - Labs reviewed- WBC 16.91, hemoglobin 12.5, creatinine 1.20. - 3 way Mota catheter intact, patent and draining clear yellow urine with CBI on slow. - CBI clamped @0745, nursing aware - will reassess later this AM - Maintain Mota catheter - Encourage ambulation. - Continue diet. - Will stop IV fluids. - Anticipate home with Mota catheter later today presuming urine appropriate and he continues to progress as expected - Expected clinical course reviewed, all questions answered - Will arrange outpatient follow-up with our service. - Patient reassessed. - Urine remains clear off CBI. - He remains afebrile and hemodynamically stable. - No reported pain. - Tolerated diet. - Ambulated without issue. - Patient stable for discharge home on postop day #1 with a Mota catheter in place. - Discharge instructions were reviewed, all questions were answered. Total Time Total Time Spent Total Time Spent (In Minutes): 15 Discharge Plan Discharge Items Patient Disposition: Home - Self-Care Reason For Visit: Benign Prostatic Hyperplasia with Urinary Obstruct Discharge Diagnosis: BPH with urinary obstruction Activity: Per Instructions section Bathing Comment: OK to shower. No tub baths or soaks. Non-emergency contact: Surgeon and Urologist Call non-emergency contact if: you have any medication questions, your symptoms worsen, your pain is not controlled and you have a fever Follow-up/Referrals: Dutch Coates DO [Physician] - 05/24/23 1:15 pm () Gin Ledesma MD [Primary Care Provider] - [facility],Nurse [FAKE FOR SCHEDULES] - 05/19/23 9:00 am (catheter removal) Diet: Regular Addtl Attending Provider Instructions: Please take all medications as prescribed and keep all follow-ups as scheduled. Please call our office at [phone] with any questions, concerns or need to reschedule appointments for any reason. We are happy to assist you. An antibiotic (Bactrim) has been sent to your pharmacy. Please take as directed. Tips for your recovery at home: Dont be alarmed by brownish or reddish blood or clots in your urine. This is a result of the procedure. This may occur off and on for weeks to months after the procedure but should continue to improve. Drink plenty of fluids during the day (enough to keep your urine very light colored). This will help keep a healthy flow of urine. Do not lift >25 lbs until your followup Avoid constipation. Please use a stool softener (Colace) for the first two weeks after your procedure Be sure to finish the antibiotics as prescribed. If you go home with a catheter, please wash tubing where it enters your body twice daily with mild soap (Dove or Dial). Once your catheter is removed, expect some blood in your urine and some burning when you urinate. You should have an appointment to have this removed, if you do not please call our office to arrange. When to call [facility] Urology at [phone]: Your urine contains heavy blood clots or your catheter stops draining You are constantly leaking urine Fever of 101F or higher, chills, nausea, or vomiting Your pain is not relieved with medication Pending Studies at Discharge: Yes (pathology) Stand-Alone Forms: [facility], Smoking Cessation Medications and DC Order Prescriptions: New sulfamethoxazole-trimethoprim [Bactrim DS] 800-160 mg tablet 1 tab PO Q12H 7 Days Qty: 14 0RF Continued ezetimibe [Zetia] 10 mg Tablet 10 mg PO QAM Qty: 0 multivitamin Tablet 1 tab PO Q OTHER DAY Qty: 0 levothyroxine 25 mcg Tablet 25 mcg PO QAM Qty: 0 metoprolol tartrate 50 mg Tablet 100 mg PO QAM Qty: 0 aspirin [Adin Low Dose Aspirin] 81 mg Tablet,Delayed Release (Dr/Ec) 81 mg PO Q OTHER DAY Qty: 0 finasteride 5 mg tablet 5 mg PO DAILY Qty: 90 1RF dorzolamide 2 % drops 1 drp OPL BID terazosin 2 mg capsule 2 mg PO HS Vyzulta 0.024 % drops 1 drp OPB DAILY omeprazole 20 mg capsule,delayed release(DR/EC) 20 mg PO QAM Rhopressa 0.02 % drops 1 drp OPL DAILY Discharge Orders: Discharge Order (Routine); Ordered 05/12/23 Ordered By: Zunilda Carrington Admission Data Admit Date/Time: 05/11/23 12:48 Attending Provider: Dutch Coates Admit Provider: Dutch Coates Primary Care Provider: Gin Ledesma Other Interventions: Discharge Summary Assessment (RN) Last Done: 05/12/23 12:37 Coding Level of Care Code 22330 IN/OBS DISCH 30 MIN/LESS Diagnoses Benign prostatic hyperplasia with urinary obstruction N40.1; N13.8
== END 2023-05-12 15:04 | disposition home or self-care (01) ==
LOC: 3N 10:00 → ASU 10:00

== ENCOUNTER 2023-11-12 08:41 | Inpatient (IN) ==
--- OUTSIDE RECORDS SUMMARY | 2023-11-12 08:47 | External Medical Summary | Summary of Care ---
Author Name Unknown Organization [facility] Address [address] [place] [address] Phone [phone] Care Team Providers Care Utilization Management Manager Name Role Phone Jimena Ledesma MD Primary Care Provider + Reason for Visit * Reason Comments Follow Up Encounter Details Date Type Department Care Team (Late st Contact Info) Description 10/10/2023 1:30 PM EDT Office Visit Cardiology, [facility] [address] [place] [address] Vivek Nassar MD [address] [place] [address] HTN, goal to be determined*; Hyperlipidemia LDL goal <100; Coronary artery disease involving [place] coronary artery of [place] heart without angina pectoris; Aortocoronary bypass status Allergies Active Allergy Reactions Criticality Noted Date Comments Carboxymethylcellulose 10/10/2023 Other Reaction(s): red, irritated, itchy eyes Rosuvastatin Calcium Muscle pain 10/23/2009 Statins 07/19/2005 MYALGIAS --Mevacor, Zocor, Lipitor Crestor documented as of this encounter (statuses as of 10/10/2023) Medications Medication Sig Dispensed Refills Start Date End Date Status MULTI-VITAMIN TABS OR Take 1 Tablet by mouth once a day on Monday, Monday, and Monday only. Active ASPIRIN EC LOW STRENGTH 81 MG PO TBEC Take by mouth once a day on Monday, , Monday, and Monday only . 34 11 03/06/2006 Active dorzolamide (TRUSOPT OCUMETER PLUS) 2 % ophthalmic solution 03/09/2018 Active prednisolone acetate (PRED FORTE) 1 % ophthalmic suspension Instill 1 Drop into the right eye in the morning. 10/25/2018 Active Vyzulta 0.024 % Ophthalmic Solution (Latanoprostene Bunod) Instill into eye. One drop left eye at bedtime. Active Rhopressa 0.02 % Ophthalmic Solution (Netarsudil Dimesylate) Instill into eye. Active Levothyroxine Sodium 25 MCG Oral Tablet (Levoxyl)Indicat ions:Hypothyroid ism TAKE 1 TABLET DAILY AT LEAST 30 [...] 04/18/2023 Active Ezetimibe 10 MG Oral Tablet (Zetia)Indicatio ns:Coronary atherosclerosis, Angina pectoris (HCC),Hyperlipid emia LDL goal <100 TAKE 1 TABLET EVERY DAY 90 Tablet 3 04/21/2023 Active Metoprolol Succinate ER 25 MG Oral Tablet Extended Release 24 Hour (toPROL XL)Indications:H TN, goal to be determined TAKE 1 TABLET EVERY MORNING 90 Tablet 1 06/28/2023 Active Terazosin HCl 2 MG Oral Capsule TAKE 1 CAPSULE AT BEDTIME 90 Capsule 10 11/17/2022 4 Discontinued documented as of this encounter (statuses as of 10/10/2023) Active Problems Problem Noted Date Diagnosed Date [...] CORONARY ATHEROSCLEROSIS OF UNSPECIFIED TYPE OF VESSEL, ROBINSON OR GRAFT History of peptic ulcer ANGINA PECTORIS NEC-NOS Overview: CABG x5 02/2001 [facility] [place] Dr. Heath EKG: old IWMI changes and IRBBB Aortocoronary bypass status HTN, goal below 140/90 Hyperlipidemia LDL goal <100 documented as of this encounter (statuses as of 10/10/2023) Resolved Problems Problem Noted Date Diagnosed Date Resolved Date Kidney disease, chronic, sta ge III (GFR 30-59 ml/min) 04/01/2013 01/13/2014 Overview: Per CKD protocol #1 Dyslipidemia, goal LDL below 100 01/15/2009 05/31/2018 Overview: Per Lipid Taxonomy. Dysphagia 08/01/2003 05/31/2018 Overview: Video swallowing 2003 [facility]- [facility] Pt exercises caution peanuts, potato chips, pretzels [...] as of this encounter (statuses as of 10/10/2023) Immunizations Name Administration Dates Next Due COVID-19 mRNA, LNP-s, No Pre serve, 2-Dose Series (Moderna) 03/27/2020,02/29/2020 Pneumococcal Conjugate Vacc, 13 Valent (Prevnar) 10/31/2014 Pneumococcal Polysaccharide PPV23 (Pneumovax) 08/19/2005 Seasonal Influenza, Quadriva lent Hd (Fluzone Hd) 11/25/2021 Seasonal Influenza, Quadriva lent, No Preserve, IM 11/15/2019,11/14/2017,10/31/2014 Seasonal Influenza, Trivalen t, (IIV3), with Preserv, (Fluzone) 12/15/2016,11/14/2013,12/09/2012,11/08,10/28/2010,11/24/2009,10/24/2008 ,11/12/2007,12/13/2006 TD - Tetanus/Diptheria (ADULT) 07/18/2009 TD, Preservative Free 07/18/2009,04/07/1999 TDAP, Age 7 and older, IM (Adacel) 12/07/2018 documented as of this encounter Social [...] money to get more. Never true 08/18/2020 Utilities Answer Date Recorded Do you have trouble paying y our heating, water, or electric bill? (Adult - for ages 18 years and over) Not on file 07/25/2023 Is your family able to pay t he heat, water, or electric bill? (Household - for ages 0-17 years) Not on file 07/25/2023 Does your family have access to good internet? (Household - for ages 0-17 years) Not on file 07/25/2023 Social Connections Answer Date Recorded How often do you feel lonely or isolated from those around you? (Adult - for ages 18 years and over) Not on file 07/25/2023 Sex and Gender Information Value Date Recorded Sex Assigned at Male 05/31/2018 8:56 AM EDT Gender Identity Male 05/31/2018 8:56 AM EDT Sexual Orientation Straight 05/31/2018 8: 56 AM EDT Job Start Date Occupation Industry Not on file Not on file Not on file documented as of this encounter Last Filed Vital Signs Vital Sign Reading Time Taken Comments Blood Pressure 136/82 10/10/2023 1:35 PM EDT Pulse 80 10/10/2023 1:35 PM EDT Temperature - - Respiratory Rate 16 10/10/2023 1:35 PM EDT Oxygen Saturation - - Inhaled Oxygen Concentration - - Weight 88 kg (194 lb) 10/10/2023 1:35 PM EDT Height - - Body Mass Index 26.86 03/07/2023 8:13 AM EST documented in this encounter Progress Notes * Vivek Nassar MD - 10/10/2023 1:30 PM EDT October 10, 2023 Cardiology Follow Up Referring Provider: PCP: JIMENA LEDESMA [address] [place] [address] [phone] Chief Complaint: Follow-up chronic coronary disease SUBJECTIVE: oHracio Barnhart is a 88 year old year old male with cardiac issues 1. Atherosclerotic coronary disease, status post coronary bypass grafting, February of 2001, receiving TAVAREZ graft to LAD, a saphenous vein graft to the ramus, with sequential graft to the obtuse marginal, saphenous vein graft to the diagonal, and saphenous vein graft to the posterior descending artery. 2. Stable class I functional capacity. 3. Hyperlipidemia with poor statin tolerance. 4. Mild hypothyroidism. 5. Past history of gastric ulcer disease. 6. History of chronic epistaxis on when on high-dose aspirin 7. Transient atrial fibrillation May 21, 2017 while hospitalized with left ureteral stone withoutrecurrence 8. Atherosclerotic carotid disease,moderate bilateral 9. Recurrent renal lithiasis Patient presents today in routine followup. He denies any cardiac complaints. Still remaining physically active. Goes to the gym 3 days per week. Does note some mild gait instability . Denies chest pains, shortness of breath, tachy palpitations. Appetite and weight are stable. Tolerating current medications. Anticipates downsizing to a smaller home in the near future. Concerned regarding reduction in activities, mowing grass etc. A Complete Review of Systems is as stated above or negative. Patient Active Problem List Diagnosis History of colonic polyps CORONARY ATHEROSCLEROSIS OF UNSPECIFIED TYPE OF VESSEL, ROBINSON OR GRAFT History of peptic ulcer ANGINA PECTORIS NEC-NOS Aortocoronary bypass status ADVANCE DIRECTIVE INFORMATION BPH without obstruction/lower urinary tract symptoms HTN, goal below 140/90 Hyperlipidemia LDL goal <100 PAF (paroxysmal atrial fibrillation) (HCC) Prediabetes Review of patient's allergies indicates: Allergen Reactions Carboxymethylcellulose Other Reaction(s): red, irritated, itchy eyes Crestor [Rosuvastatin Calcium] Muscle pain Statins MYALGIAS --Mevacor, Zocor, Lipitor Crestor Current Outpatient Medications Medication Sig Dispense Refill MULTI-VITAMIN TABS OR Take 1 Tablet by mouth once a day on Monday, Monday, and Monday only. ASPIRIN EC LOW STRENGTH 81 MG PO TBEC Take by mouth once a day on Monday, , Monday, and Monday only . 34 11 dorzolamide (TRUSOPT OCUMETER PLUS) 2 % ophthalmic solution prednisolone acetate (PRED FORTE) 1 % ophthalmic suspension Instill 1 Drop into the right eye in the morning. Vyzulta 0.024 % Ophthalmic Solution (Latanoprostene Bunod) Instill into eye. One drop left eye at bedtime. Rhopressa 0.02 % Ophthalmic Solution (Netarsudil Dimesylate) Instill into eye. Levothyroxine Sodium 25 MCG Oral Tablet (Levoxyl) TAKE 1 TABLET DAILY AT LEAST 30 MINUTES PRIOR TO BREAKFAST OR OTHER MEDICATIONS 90 Tablet 10 Finasteride 5 MG Oral Tablet (Proscar) TAKE 1 TABLET EVERY MORNING 90 Tablet 2 Omeprazole 20 MG Oral Capsule Delayed Release (PriLOSEC) TAKE 1 CAPSULE DAILY 1 HOUR BEFORE THE FIRST MEAL OF THE DAY 90 Capsule 3 Ezetimibe 10 MG Oral Tablet (Zetia) TAKE 1 TABLET EVERY DAY 90 Tablet 3 Metoprolol Succinate ER 25 MG Oral Tablet Extended Release 24 Hour (toPROL XL) TAKE 1 TABLET EVERY MORNING 90 Tablet 1 No current facility-administered medications for this visit. OBJECTIVE/PHYSICAL EXAMINATION: BP 136/82 | Pulse 80 | Resp 16 | Wt 88 kg (194 lb) | BMI 26.86 kg/m | BSA 2.1 m General: no acute distress and stated age Head: normocephalic, no masses, lesions, tenderness or abnormalities Eyes: conjunctiva are pink and non-injected, sclera clear Throat: clear Nares: without discharge Neck: supple, no adenopathy, no bruits, normal jugular venous pulse, no hepatojugular reflux, no carotid bruits Chest: normal shape and normal respiratory effort Lungs: clear to auscultation and percussion Cardiac Exam: - regular rate & rhythm, no murmurs gallops or rubs - normal S-1, normal S-2 Pulses: 2(+) throughout Abdomen: abdomen soft, non-tender, no abnormal masses, no hepatosplenomegaly, no abdominal bruit, no femoral bruit Musculoskeletal: no gait disturbance, no joint inflammation, no deforming arthritis Extremities: no edema, no cyanosis, pulses intact 2+/4 Neuro: grossly normal exam Data: Carotid duplex December 08, 2022 Impression: Impression: Right carotid artery duplex examination indicates evidence of 50-69% stenosis of the internal carotid artery. Left carotid artery duplex examination indicates evidence of 50-69% stenosis of the internal carotid artery. Degree of stenosis may be greater than reported due to heavily calcified plaque Unchanged from prior study EKG June 07, 2022, personally reviewed Sinus rhythm with first-degree AV block at 60 beats per minute isolated Q-waves inferiorly unchanged from prior study of July 24, 2019 ASSESSMENT: 87 year old year old male With prior coronary bypass grafting 2001 with stable class 1 functional capacity no recent angina on appropriate medical therapies for underlying issues. Issues as addressed 1. Chronic stable ischemic heart disease without symptoms 2. Hypertension well controlled 3. Hyperlipidemia with poor medication tolerance, on Zetia, best tolerated therapy, LDL less than 100 with goals for further dietary intervention Patient not interested injectable therapies 4. Bilateral atherosclerotic carotid disease with yearly carotid ultrasound stable PLAN: Continue current therapies as prescribed Discussed fall avoidance Continued activity with replacement of yd work on transfer to new home DISPOSITION: Follow-up 12 months time with patient to contact with any clinical change Vivek Nassar MD [facility] Cardiology, [address] [place] [address] I spent a total of 30-39 minutes (exact time 30 mins) on the date of service in preparation, delivery, and documentation of the care provided to Horacio Barnhart excluding any time spent in the performance of separately billed services. documented in this encounter Procedure Notes * Diego Javed DO - 10/10/2023 1:43 PM EDTAssociated Order(s): EKG REASON FOR STUDY: routine;routine CONCLUSIONS: Normal sinus rhythm Inferior infarct (cited on or before 07-Jun-2022) Abnormal ECG When compared with ECG of 07-Jun-2022 08:06, WA interval has decreased Ventricular Rate: 70 Atrial Rate: 70 WA Interval: 172 QRS Duration: 98 QT/QTc: 412/444 ms P-R-T [place]: 84 : 30 : 47 degrees documented in this encounter Nursing Notes * Vidya Partida LPN - 10/10/2023 1:33 PM EDT Examination Room: 13 Name: Horacio Barnhart Date of : 1935 Reason for Visit: Follow up Problems/Concerns: denies Interim Hosp(s): 05/2023 ER s/p prostate procedure, urinary incontinent Chest Pain/SOB: denies MyChart Discussed: ALREADY ACTIVE Patient was instructed to not get up on the exam table until directed and assisted by their provider; patient is to remain seated in the chair/ wheelchair/ exam table for fall prevention and safety reasons. Patient is aware staff will assist stepping down off exam table with personnel. documented in this encounter Plan of Treatment Upcoming Encounters Date Type Department Care Team (Late st Contact Info) Description 10/21/2024 10:30 AM EDT Office Visit Cardiology, [facility] [address] [place] [address] Vivek Nassar MD [address] [place] [id number] Health Maintenance Due Date Last Done Comments Zoster Vaccines (1 of 2) 1987 Adult Wellness Visit 2003 [facility] 09/02/2023 09/01/2022, 08/07, 08/20/2020, Additional history exists COVID-19 Vaccine ( season) 2023 03/27/2020, 02/29/2020 Influenza Vaccine (FLU shot) (#1) 2023 11/25/2021, 11/15/2019, 11/14/2017, Additional history exists Depression Screening 03/07/2024 03/07/2023 HbA1c 03/07/2024 03/07/2023, 02/07, 2021, Additional history exists Albumin/Creatinine Ratio 03/01/2025 023, 02/11/2020, 06/06/2018, Additional history exists DTap/Tdap Vaccines (2 - Td or Tdap) 12/07/2028 12/07/2018, 07/18/2009, 07/18/2009, Additional history exists Pneumococcal Vaccine: 65+ Years Completed 10/31/2014, 08/19/2005, 10/17/1997 HPV (Gardasil) Vaccine Aged Out No lo nger eligible based on patient's age to complete this topic Hepatitis B Vaccine Aged Out No longe r eligible based on patient's age to complete this topic MENINGOCOCCAL (MENACTRA/MENVEO) Aged Out No longer eligible based on patient's age to complete this topic documented as of this encounter Medical Devices Not on filedocumented as of this encounter Procedures Procedure Name Priority Date/Time Associated Diagnosis Comments WA ECG ROUTINE ECG W/LEAST 12 LDS W/I&R Routine 10/10/2023 1:43 PM EDT HTN, goal to be determined Hyperlipidemia LDL goal <100 documented in this encounter Results * EKG (10/10/2023 1:43 PM EDT) 10/10/2023 1:43 PM EDT Narrative Procedure Note Diego Javed, - 10/10/2023 1:43 PM EDT REASON FOR STUDY: routine;routine CONCLUSIONS: Normal sinus rhythm Inferior infarct (cited on or before 07-Jun-2022) Abnormal ECG When compared with ECG of 07-Jun-2022 08:06, WA interval has decreased Ventricular Rate: 70 Atrial Rate: 70 WA Interval: 172 QRS Duration: 98 QT/QTc: 412/444 ms P-R-T [place]: 84 : 30 : 47 degrees Vivek Nassar MD EKG [facility] documented in this encounter Visit Diagnoses Diagnosis HTN, goal to be determined- Primary Unspecified essential hypertension Hyperlipidemia LDL goal <100 Other and unspecified hyperlipidemia Coronary artery disease involving [place] coronary artery of [place] heart without angina pectoris Aortocoronary bypass status Postsurgical aortocoronary bypass status documented in this encounter Care Teams Utilization Management Manager Relationship Specialty Start Date End Date Jimena Ledesma MD [address] [place] [address] [place] [address] PCP - General 06/13/08 documented as of this encounter"
--- NOTE | 2023-11-12 08:59 | Emergency Department Note ---
Impression & Plan Acute UTI, Weakness, Nausea, Headache ED Provider Note Provider: Silvano Rangel MD DATE OF SERVICE: 11/12/2023 CHIEF COMPLAINT: Weak nausea HISTORY OF PRESENT ILLNESS: Patient is a 88-year-old gentleman past medical history of CAD with CABG, cholecystectomy, ulcers, hypertension, thyroidism, BPH status post surgery in the spring presenting here today via ambulance from home. Patient states he was well last night. Woke around 7 AM and immediately felt weak and had difficulty getting out of bed. [place] dizzy and unsteady on his feet but did not fall. Reports admitted to the bathroom and urinated normally. Did not have any diarrhea but was quite queasy and nauseous and vomited several times. Some mild headache reported. Denies significant chest pain or shortness of breath. States he feels a bit numb all over. No medicines this morning. No recent cough or congestion but maybe little bit of a sore throat. States his stomach is a little sore from retching and dry heaving. Ambulance called and brought here for further evaluation. Nausea is minimal right now but he states if he moves around or gets worse. PAST MEDICAL HISTORY: As noted above MEDICATIONS: Reviewed home medications but did not take any morning medicines today. SOCIAL HISTORY: , lives with PHYSICAL EXAM: GENERAL: alert and oriented on stretcher fatigued in appearance. Head: normocephalic and atraumatic EYES: No injection, discharge or icterus. PERRL, EOMI. NECK: Trachea midline. Supple good range of motion ENT: Mucous membranes pink and moist. TMs clear bilaterally. LUNGS: Airway patent. No retractions. Breath sounds clear anteriorly HEART: Regular rate and rhythm. No chest wall tenderness ABDOMEN: Soft minimally diffusely, without guarding or rebound. No masses appreciable. SKIN: Acyanotic, warm, dry, without rashes EXTREMITIES: Without swelling, tenderness or deformity NEUROLOGICAL: No focal deficits moving all extremities. No aphasia. No facial droop or slurred speech. Normal strength and tone in the extremities. Sensation to gross touch normal. EK bpm normal sinus rhythm. Bit of artifact but no acute PVC or PAC noted. No acute ST segment elevation or depression with a QTc of 429. CONTINUOUS CARDIAC MONITORING: was ordered and showed a heart rate of 50s to 60s bpm in normal sinus rhythm to sinus bradycardia Patient's laboratory studies and imaging reviewed. Differential includes Infection, dehydration, metabolic abnormality, hypo/hyperglycemia, electrolyte disturbance, anemia, hypoxia, cardiac sources, intracerebral event, toxicologic, neurologic, as well as other pathologies. IMPRESSION/MEDICAL DECISION MAKING: Patient appears generally weak and fatigued with nausea prickly with motion. Maybe some very slight nonspecific abdominal tenderness he states mainly from dry heaving. Given some Zofran here and a small amount of IV fluid. Mild headache. Afebrile here. No trauma or syncope. Will obtain CT of the head given his age and complaint of generalized weakness/dizziness with headache. On exam no significant focal deficits, facial droop, or slurred speech. Respiratory viral panel was sent. Basic blood work obtained. EKG without evidence of acute ischemia or significant arrhythmia. Troponin sent. Will obtain CT abdomen pelvis to look for intra-abdominal issues. Will attempt obtain urinalysis to exclude urinary infection given history of BPH. Blood returns without significant leukocytosis. No significant anemia hemoglobin 13.4. No significant lecture light abnormality signs of acute renal dysfunction. No evidence of acute hepatitis/transaminitis on blood work. Patient blood pressure initially hypertensive is improving here without significant intervention from systolic in the 180s later in the 150s. Heart rate rate around 60s. Given some IV Tylenol to help with his headache. Chest x-ray per radiology and my review and interpretation without evidence of pneumonia, pleural effusion, or pneumothorax. Troponin returns normal at 10. Doubt ACS/AK. CT head shows per radiology report no acute intracranial abnormality. CT abdomen pelvis shows per radiology no acute findings other than some bladder distention. Urinalysis is concerning for UTI likely explains symptomatologies. Does have a history of prostate issues in the past. Respiratory viral panel returns negative. Patient is feeling better and headaches better after some Tylenol. Will cover ceftriaxone for possible UTI. No concerning microbiology and prior history available in our system here. Home medications were ordered. Given his age with symptoms today until the antibiotics really start to have an infected recommend observation overnight both he and his family were in agreement this plan. Hospitalist was contacted. DIAGNOSIS: Acute UTI, weakness, nausea and vomiting, headache, dizziness DISPOSITION: Hospitalist will evaluate Patient was agreeable with this plan. Past Med/Surg History Problem List (Updated 11/12/23 @ 11:45 by Silvano Rangel M.D.) Headache (Acute) Nausea (Acute) Weakness (Acute) Acute UTI (Acute) Microscopic hematuria Benign prostatic hyperplasia with urinary obstruction (Acute) Kidney stone on right side History of urinary calculi (Chronic) Arthritis (Acute) Dyslipidemia (Chronic) Hypothyroidism (Chronic) Hypertension (Chronic) Diverticular disease of colon (Chronic) Glaucoma (Chronic) Cataract (Chronic) History of peptic ulcer disease (Chronic) Benign prostatic hyperplasia (Chronic) Coronary artery disease (Chronic) CABG x 5 2002 Hx of CABG (Chronic) 5 vessels - [facility] follows w/ dr. nassar Hx of cholecystectomy (Chronic) PAF (paroxysmal atrial fibrillation) pt reports 1x episode while hospitalized at [facility] w/ kidney stones - approx 3- 4 years ago - follows w/ dr. Nassar Medical History Encounter for pre-operative examination History of COVID-19 Osteoarthritis GERD (gastroesophageal reflux disease) Hearing deficit Myocardial Infarction History of kidney stones Surgical History History of eye surgery S/P TURP (status post transurethral resection of prostate) History of esophagogastroduodenoscopy (EGD) History of colonoscopy History of cystoscopy History of cardiac cath Social History Smoking Status: Never smoker Second Hand Exposure: No; Do You Dip or Chew Tobacco: No; Hx Alcohol Use: Yes Alcohol type: beer Hx Substance Use: No Preferred Language: Sudanese Communication Ability: Effective Event Marketing Manager Required: No Beliefs That Will Affect Care: None Current Living Situation: Spouse Feels Safe at Home: Yes Assistive Devices: Cane Allergies Allergies Allergy/AdvReac Type Severity Reaction Status Date / Time Brjugmx-WVU-VeO Reductase Allergy Unknown MUSCLE Verified 11/12/23 11:43 Inhibitor ACHES [Ajviuhr-Gge-Cth Reductase Inhibitor] atorvastatin AdvReac Unknown MUSCLE Verified 05/11/23 10:35 CRAMPS simvastatin AdvReac Unknown MUSCLE Verified 05/11/23 10:35 CRAMPS Home Meds Home Medications Medication Instructions Recorded Confirmed ezetimibe 10 mg tablet (Zetia) 10 mg PO QAM ##0 07/23/07 11/12/23 multivitamin 1 tab PO Q OTHER DAY ##0 07/18/09 11/12/23 levothyroxine 25 mcg tablet 25 mcg PO QAM ##0 10/20/15 10/06/24 aspirin 81 mg tablet,delayed 81 mg PO Q OTHER DAY ##0 06/07/17 11/12/23 release (Adin Low Dose Aspirin) dorzolamide 2 % eye drops 1 drp OPL BID 04/11/18 11/12/23 terazosin 2 mg capsule 2 mg PO HS 09/08/20 11/12/23 netarsudil 0.02 % eye drops 1 drp OPL DAILY 05/04/23 11/12/23 (Rhopressa) omeprazole 20 mg capsule,delayed 20 mg PO QAM 05/04/23 11/12/23 release finasteride 5 mg tablet 5 mg PO QAM 11/12/23 11/12/23 metoprolol succinate 25 mg 25 mg PO QAM 11/12/23 11/12/23 tablet,extended release 24 hr Results & Data (ED) Vital Signs Vital Signs - 24 hr 11/12/23 08:46 11/12/23 09:00 11/12/23 09:00 Temperature 36.2 C L Temperature Source Oral Pulse Rate 62 61 60 Pulse Rate from SpO2 Sensor 60 Pulse Rhythm Respiratory Rate 19 19 Respiratory Effort / Characteristics Non-Labored Spontaneous Respiratory Depth Normal Respiratory Pattern Regular Blood Pressure 191/91 H 170/93 H Blood Pressure Mean 124 118 Pulse Oximetry 100 97 Oxygen Delivery Method Room Air Room Air Sepsis Recent Fever Within 48 Hours No Sepsis New/Unexplained Change in Mental Status N/A Sepsis Action Taken by Nursing No Action Required 11/12/23 09:01 11/12/23 09:24 11/12/23 09:45 Temperature Temperature Source Pulse Rate 60 60 Pulse Rate from SpO2 Sensor 60 Pulse Rhythm Regular Respiratory Rate 17 18 Respiratory Effort / Characteristics Respiratory Depth Respiratory Pattern Blood Pressure 168/90 H 160/78 H Blood Pressure Mean 116 101 Pulse Oximetry 99 99 Oxygen Delivery Method Room Air Room Air Sepsis Recent Fever Within 48 Hours Sepsis New/Unexplained Change in Mental Status Sepsis Action Taken by Nursing 11/12/23 09:48 11/12/23 10:15 11/12/23 10:51 Temperature Temperature Source Pulse Rate 59 L 57 L Pulse Rate from SpO2 Sensor 59 L 57 L Pulse Rhythm Respiratory Rate 20 17 Respiratory Effort / Characteristics Respiratory Depth Respiratory Pattern Blood Pressure 150/86 H 164/79 H Blood Pressure Mean 107 95 Pulse Oximetry 100 97 Oxygen Delivery Method Room Air Room Air Sepsis Recent Fever Within 48 Hours Sepsis New/Unexplained Change in Mental Status Sepsis Action Taken by Nursing 11/12/23 10:54 11/12/23 11:00 11/12/23 11:09 Temperature Temperature Source Pulse Rate 61 55 L Pulse Rate from SpO2 Sensor 59 L 54 L Pulse Rhythm Respiratory Rate 15 19 Respiratory Effort / Characteristics Respiratory Depth Respiratory Pattern Blood Pressure 153/69 H Blood Pressure Mean 84 Pulse Oximetry 98 99 Oxygen Delivery Method Room Air Sepsis Recent Fever Within 48 Hours Sepsis New/Unexplained Change in Mental Status Sepsis Action Taken by Nursing 11/12/23 11:30 11/12/23 11:36 11/12/23 11:51 Temperature Temperature Source Pulse Rate 58 L 63 Pulse Rate from SpO2 Sensor 57 L 63 Pulse Rhythm Respiratory Rate 14 16 Respiratory Effort / Characteristics Respiratory Depth Respiratory Pattern Blood Pressure 168/90 H Blood Pressure Mean 100 Pulse Oximetry 99 98 Oxygen Delivery Method Sepsis Recent Fever Within 48 Hours Sepsis New/Unexplained Change in Mental Status Sepsis Action Taken by Nursing 11/12/23 12:00 11/12/23 12:03 Temperature Temperature Source Pulse Rate 65 Pulse Rate from SpO2 Sensor 60 Pulse Rhythm Respiratory Rate 16 Respiratory Effort / Characteristics Respiratory Depth Respiratory Pattern Blood Pressure 144/85 H Blood Pressure Mean 93 Pulse Oximetry 100 Oxygen Delivery Method Sepsis Recent Fever Within 48 Hours Sepsis New/Unexplained Change in Mental Status Sepsis Action Taken by Nursing Laboratory Data 11/12/23 09:00 11/12/23 09:00 Lab Results 11/12/23 11/12/23 11/12/23 Range/Units 09:00 09:08 10:51 WBC 5.59 (4.8-10.8) K/ul RBC 4.50 L (4.70-6.10) M/uL Hgb 13.4 L (14.0-18.0) g/dl Hct 40.7 L (42.0-52.0) % MCV 90.4 (80.0-100.0) fL MCH 29.8 (25.0-34.0) pg MCHC 32.9 (32.0-36.0) g/dL RDW Std Deviation 49.1 H (36.4-46.3) fL RDW Coeff of Alvina 15.0 H (11.5-14.5) % Plt Count 162 (130-400) K/uL MPV 10.4 (9.4-12.4) fL Immature Gran % (Auto) 1.1 % Neut % (Auto) 67.9 % Lymph % (Auto) 21.8 % [place] % (Auto) 7.2 % Eos % (Auto) 1.6 % Baso % (Auto) 0.4 % Neut # (Auto) 3.80 (1.40-6.50) K/uL Lymph # (Auto) 1.22 (1.20-3.40) K/uL [place] # (Auto) 0.40 (0.11-0.59) K/uL Eos # (Auto) 0.09 (0.00-0.50) K/uL Baso # (Auto) 0.02 (0.00-0.20) K/uL Immature Gran # (Auto) 0.06 (0.01-0.20) K/uL Sodium 141 (136-145) mmol/L Potassium 4.5 (3.5-5.1) mmol/L Chloride 105 (98-107) mmol/L Carbon Dioxide 30 (21-32) mmol/L Anion Gap 6 (3-11) BUN 17 (6-23) mg/dl Creatinine 1.13 (0.6-1.4) mg/dl Est Cr Clr Drug Dosing 51.5 ml/min eGFR 63.30 BUN/Creatinine Ratio 15.0 (10-20) Glucose 113 H (70-99(Fasting)) mg/dl Calcium 9.6 (8.6-10.3) mg/dl Magnesium 2.1 (1.7-2.4) mg/dl Total Bilirubin 1.2 H (0.2-1.0) mg/dl AST 19 (13-39) U/L ALT 16 (7-52) U/L Alkaline Phosphatase 56 (34-104) U/L Troponin I High Sens 10.5 (0-20) pg/ml Total Protein 7.4 (6.0-8.3) gm/dl Albumin 4.4 (3.4-5.0) gm/dl Globulin 3.0 (2.5-4.0) gm/dl Albumin/Globulin Ratio 1.5 (0.9-2) Lipase 19 (11-82) U/L TSH 2.390 (0.300-4.500) uIu/ml Urine Color Yellow Urine Appearance Clear (Clear) Urine pH 8.0 H (4.5-7.5) Ur Specific [place] 1.018 (1.000-1.030) Urine Protein Negative (Negative) Urine Glucose (UA) Negative (Negative) Urine Ketones Negative (Negative) Urine Blood Negative (Negative) Urine Nitrite Negative (Negative) Urine Bilirubin Negative (Negative) Urine Urobilinogen Negative (Negative) Ur Leukocyte Esterase 2+ H (Negative) Urine WBC (Auto) >50 H (0-5) /hpf Urine RBC (Auto) 0-2 (0-2) /hpf U Hyaline Cast (Auto) 0-2 (0-2) /lpf U Epithel Cells (Auto) 0-2 (0-2) /hpf Urine Bacteria (Auto) 2+ H (None Seen) Adenovirus (PCR) Not Detected (NotDetected) B. pertussis DNA (PCR) Not Detected (NotDetected) B.parapertussis DNA PCR Not Detected (NotDetected) C. pneumoniae DNA (PCR) Not Detected (NotDetected) Coronavirus OC43 (PCR) Not Detected (NotDetected) Coronavirus HKU1 (PCR) Not Detected (NotDetected) Coronavirus 229E (PCR) Not Detected (NotDetected) SARS-CoV-2 (PCR) Not Detected (NotDetected) Coronavirus NL63 (PCR) Not Detected (NotDetected) Human Metapneumovir PCR Not Detected (NotDetected) Influenza Type A (PCR) Not Detected (NotDetected) Influenza Type B (PCR) Not Detected (NotDetected) M. pneumoniae (PCR) Not Detected (NotDetected) Parainfluenza 1 (PCR) Not Detected (NotDetected) Parainfluenza 2 (PCR) Not Detected (NotDetected) Parainfluenza 3 (PCR) Not Detected (NotDetected) Parainfluenza 4 (PCR) Not Detected (NotDetected) RSV (PCR) Not Detected (NotDetected) Entero/Rhino (PCR) Not Detected (NotDetected) Administered Medications Discontinued Medications Finasteride (Finasteride 5 Mg Tab) 5 mg PO ONCE ONE Stop: 11/12/23 11:36 Last Admin: 11/12/23 12:10 Dose: 5 mg Documented By: TNK Sodium Chloride (Nss) 500 mls @ 999 mls/hr IV .Q31M NILESH Stop: 11/12/23 09:30 Last Infusion: 11/12/23 09:40 Dose: Infused Documented By: Admin: 11/12/23 09:08 Dose: 999 mls/hr Documented By: TRAMAINE Acetaminophen (Ofirmev) 1,000 mg in 100 mls @ 400 mls/hr IV NOW STA Stop: 11/12/23 10:09 Last Infusion: 11/12/23 10:23 Dose: Infused Documented By: Admin: 11/12/23 10:05 Dose: 400 mls/hr Documented By: TRAMAINE Ceftriaxone Sodium (Rocephin) 2,000 mg in 50 mls @ 100 mls/hr IV NOW STA Stop: 11/12/23 11:55 Last Admin: 11/12/23 11:52 Dose: 100 mls/hr Documented By: NARINDER Ioversol (Optiray 320 100ml) 94 ml IV ONCE ONE Stop: 11/12/23 10:33 Last Admin: 11/12/23 10:32 Dose: 94 ml Documented By: LINH Levothyroxine Sodium (Levothyroxine Sodium 25 Mcg Tablet) 25 mcg PO ONCE ONE Stop: 11/12/23 11:35 Last Admin: 11/12/23 12:10 Dose: 25 mcg Documented By: NARINDER Metoprolol Succinate (Metoprolol Succ 50mg Ext Rel Tab) 100 mg PO NOW STA Stop: 11/12/23 11:35 Last Admin: 11/12/23 12:10 Dose: 100 mg Documented By: NARINDER Ondansetron HCl (Ondansetron Inj 2 Mg/Ml 2 Ml Vial) 4 mg IV NOW STA Stop: 11/12/23 08:54 Last Admin: 11/12/23 09:06 Dose: 4 mg Documented By: TRAMAINE Pantoprazole Sodium (Pantoprazole 40 Mg Tab) 40 mg PO NOW STA Stop: 11/12/23 11:34 Last Admin: 11/12/23 11:52 Dose: 40 mg Documented By: NARINDER Imaging Data Radiologist's Impression: Abdomen/Pelvis CT 11/12/23 08:53 CT OF THE ABDOMEN AND PELVIS WITH CONTRAST CLINICAL HISTORY: weak, nausea, dizzy COMPARISON STUDY: CT of the abdomen and pelvis April 18, 2023. Renal ultrasound August 22, 2023. TECHNIQUE: Following IV administration of 94 mL of Optiray, axial images of the abdomen and pelvis were obtained from the lung bases to the proximal femurs. Images were reviewed in the axial, sagittal, and coronal planes. IV contrast was administered without complication. Automated exposure control was utilized for the study. A dose lowering technique was utilized adhering to the principles of ALARA. CT DOSE: 2305.01 mGy.cm FINDINGS: No pneumatosis, free air or portal venous gas is present. There is probable hepatic steatosis. No biliary ductal dilatation status post cholecystectomy. The spleen, adrenal glands, kidneys and pancreas are unremarkable. There is no hydronephrosis. There are no urinary calculi. A small right lateral bladder diverticulum is present. Mild bladder wall thickening is likely chronic. Caliber and wall thickness of small and large bowel are normal. The appendix is normal. Colonic diverticulosis without evidence for acute diverticulitis. There are no fluid collections. No fractures or suspicious lesions within the visualized skeletal structures are present. The appearance of the abdomen and pelvis is similar to CT of April 18, 2023. IMPRESSION: 1. No acute process within the abdomen or pelvis. 2. No bowel obstruction. No bowel wall thickening. 3. Colonic diverticulosis. No evidence for acute diverticulitis. 4. Bladder wall thickening. This is likely chronic although could be correlated with urinalysis. ACT 112: Negative or not required by law. Electronically signed by: Sylvester Rivera M.D. 11/12/2023 11:01 AM Chest X-Ray 11/12/23 08:53 XR chest 1V portable CLINICAL HISTORY: weakness, dizzy, nausea COMPARISON STUDY: Chest radiograph April 11, 2018. FINDINGS: There are median sternotomy wires and mediastinal surgical clips. Lung volumes are normal. Lungs are clear. There is no pneumothorax or pleural effusion. Cardiomegaly is unchanged. Mediastinal contours are normal. There is no evidence for pulmonary edema. IMPRESSION: No acute cardiopulmonary findings. No change in appearance of the chest. ACT 112: Negative or not required by law. Electronically signed by: Sylvester Rivera M.D. 11/12/2023 9:[address] 11/12/23 08:53 CT OF THE HEAD WITHOUT CONTRAST CLINICAL HISTORY: dizzy, nausea, weak COMPARISON STUDY: No previous studies for comparison. TECHNIQUE: Helical axial images of the head were obtained without IV contrast. Automated exposure control was utilized for the study. A dose lowering technique was utilized adhering to the principles of ALARA. FINDINGS: No acute intracranial hemorrhage, midline shift or mass effect is present. White matter hypodensities are suggestive of small vessel disease. The ventricular system is unremarkable. The basal cisterns are patent. No extra- axial collections are present. There are no findings to suggest acute dural sinus thrombosis or acute territorial infarct. No significant calvarial abnormalities are present. Visualized portions of the sinuses and mastoid air cells are clear. IMPRESSION: No acute intracranial findings. ACT 112: Negative or not required by law. Electronically signed by: Sylvester Rivera M.D. 11/12/2023 10:48 AM Discharge Plan Visit Data Chief Complaint: Illness ED Provider: Silvano Rangel Discharge Problem: Acute UTI, Weakness, Nausea, Headache Patient Disposition: Being Evaluated by Hospitalist Forms Stand Alone Forms: My [facility] Prescriptions Prescriptions: No Action ezetimibe [Zetia] 10 mg Tablet 10 mg PO QAM Qty: 0 multivitamin Tablet 1 tab PO Q OTHER DAY Qty: 0 levothyroxine 25 mcg Tablet 25 mcg PO QAM Qty: 0 aspirin [Adin Low Dose Aspirin] 81 mg Tablet,Delayed Release (Dr/Ec) 81 mg PO Q OTHER DAY Qty: 0 dorzolamide 2 % drops 1 drp OPL BID terazosin 2 mg capsule 2 mg PO HS omeprazole 20 mg capsule,delayed release(DR/EC) 20 mg PO QAM Rhopressa 0.02 % drops 1 drp OPL DAILY metoprolol succinate 25 mg tablet extended release 24 hr 25 mg PO QAM finasteride 5 mg tablet 5 mg PO QAM Referrals Referrals: Gin Ledesma MD [Primary Care Provider] -
[2023-11-12] MEDS: ONDANSETRON INJ 2 MG/ML 2 ML VIAL IV STA (09:06)
[2023-11-12] MEDS: SODIUM CHLORIDE 0.9% 500 ML IV SCH (09:08)
--- NOTE | 2023-11-12 09:33 | XRay Report ---
XR chest 1V portable CLINICAL HISTORY: weakness, dizzy, nausea COMPARISON STUDY: Chest radiograph April 11, 2018. FINDINGS: There are median sternotomy wires and mediastinal surgical clips. Lung volumes are normal. Lungs are clear. There is no pneumothorax or pleural effusion. Cardiomegaly is unchanged. Mediastinal contours are normal. There is no evidence for pulmonary edema. IMPRESSION: No acute cardiopulmonary findings. No change in appearance of the chest. ACT 112: Negative or not required by law. Electronically signed by: Sylvester Rivera M.D. 11/12/2023 9:32 AM
[2023-11-12 09:42] LABS: Basophils # (auto) 0.02 K/uL (0.00-0.20); Basophils % (auto) 0.4 %; Eosinophils # (auto) 0.09 K/uL (0.00-0.50); Eosinophils % (auto) 1.6 %; Hematocrit (blood only) 40.7 % (42.0-52.0); Hemoglobin 13.4 g/dl (14.0-18.0); Immature Granulocytes # (auto) 0.06 K/uL (0.01-0.20); Immature Granulocytes % (auto) 1.1 %; Lymphocytes # (auto) 1.22 K/uL (1.20-3.40); Lymphocytes % (auto) 21.8 %; Mean Corpuscular Hemoglobin 29.8 pg (25.0-34.0); Mean Corpuscular Hgb Conc 32.9 g/dL (32.0-36.0); Mean Corpuscular Volume 90.4 fL (80.0-100.0); Mean Platelet Volume 10.4 fL (9.4-12.4); Monocytes % (auto) 7.2 %; Neutrophils % (auto) 67.9 %; Platelet Count 162 K/uL (130-400); RDW Standard Deviation 49.1 fL (36.4-46.3); White Blood Count 5.59 K/ul (4.8-10.8)
[2023-11-12 09:51] LABS: Albumin Globulin Ratio 1.5 (0.9-2); Albumin Level 4.4 gm/dl (3.4-5.0); Bilirubin,Total 1.2 mg/dl (0.2-1.0); Calcium 9.6 mg/dl (8.6-10.3); Creatinine Clr Calc Pharmacy 51.5 ml/min; Magnesium 2.1 mg/dl (1.7-2.4); Potassium 4.5 mmol/L (3.5-5.1); Total Protein 7.4 gm/dl (6.0-8.3)
[2023-11-12 09:57] LABS: Troponin I High Sensitivity 10.5 pg/ml (0-20)
[2023-11-12] MEDS: ACETAMINOPHEN 1,000 MG/100 ML VIAL IV STA (10:05)
[2023-11-12 10:06] LABS: Thyroid Stimulating Hormone 2.39 uIu/ml (0.300-4.500)
[2023-11-12 10:29] LABS: Adenovirus PCR Not Detected (NotDetected); Bordetella parapertussis PCR Not Detected (NotDetected); Bordetella pertussis PCR Not Detected (NotDetected); Chlamydia pneumoniae PCR Not Detected (NotDetected); Coronavirus 229E PCR Not Detected (NotDetected); Coronavirus CoV-2 (COVID19)PCR Not Detected (NotDetected); Coronavirus HKU1 PCR Not Detected (NotDetected); Coronavirus NL63 PCR Not Detected (NotDetected); Coronavirus OC43PCR Not Detected (NotDetected); Human Metapneumovirus PCR Not Detected (NotDetected); Influenza A PCR Not Detected (NotDetected); Influenza B PCR Not Detected (NotDetected); Mycoplasma pneumoniae PCR Not Detected (NotDetected); Parainfluenza Virus 1 PCR Not Detected (NotDetected); Parainfluenza Virus 2 PCR Not Detected (NotDetected); Parainfluenza Virus 3 PCR Not Detected (NotDetected); Parainfluenza Virus 4 PCR Not Detected (NotDetected); Respiratory Syncytial VirusPCR Not Detected (NotDetected); Rhinovirus/Enterovirus PCR Not Detected (NotDetected)
[2023-11-12] MEDS: OPTIRAY 320 100ml IV ONE (10:32)
--- NOTE | 2023-11-12 10:49 | CT Scan Report ---
CT OF THE HEAD WITHOUT CONTRAST CLINICAL HISTORY: dizzy, nausea, weak COMPARISON STUDY: No previous studies for comparison. TECHNIQUE: Helical axial images of the head were obtained without IV contrast. Automated exposure con trol was utilized for the study. A dose lowering technique was utilized adhering to the principles o f ALARA. FINDINGS: No acute intracranial hemorrhage, midline shift or mass effect is present. White matter hyp odensities are suggestive of small vessel disease. The ventricular system is unremarkable. The basal cisterns are patent. No extra-axial collections are present. There are no findings to suggest acute d ural sinus thrombosis or acute territorial infarct. No significant calvarial abnormalities are presen t. Visualized portions of the sinuses and mastoid air cells are clear. IMPRESSION: No acute intracranial findings. ACT 112: Negative or not required by law. Electronically signed by: Sylvester Rivera M.D. 11/12/2023 10:48 AM
--- NOTE | 2023-11-12 11:04 | CT Scan Report ---
CT OF THE ABDOMEN AND PELVIS WITH CONTRAST CLINICAL HISTORY: weak, nausea, dizzy COMPARISON STUDY: CT of the abdomen and pelvis April 18, 2023. Renal ultrasound August 22, 2023. TECHNIQUE: Following IV administration of 94 mL of Optiray, axial images of the abdomen and pelvis we re obtained from the lung bases to the proximal femurs. Images were reviewed in the axial, sagittal, and coronal planes. IV contrast was administered without complication. Automated exposure control wa s utilized for the study. A dose lowering technique was utilized adhering to the principles of ALARA . CT DOSE: 2305.01 mGy.cm FINDINGS: No pneumatosis, free air or portal venous gas is present. There is probable hepatic steatos is. No biliary ductal dilatation status post cholecystectomy. The spleen, adrenal glands, kidneys and pancreas are unremarkable. There is no hydronephrosis. There are no urinary calculi. A small right l ateral bladder diverticulum is present. Mild bladder wall thickening is likely chronic. Caliber and w all thickness of small and large bowel are normal. The appendix is normal. Colonic diverticulosis wit hout evidence for acute diverticulitis. There are no fluid collections. No fractures or suspicious le sions within the visualized skeletal structures are present. The appearance of the abdomen and pelvis is similar to CT of April 18, 2023. IMPRESSION: 1. No acute process within the abdomen or pelvis. 2. No bowel obstruction. No bowel wall thickening. 3. Colonic diverticulosis. No evidence for acute diverticulitis. 4. Bladder wall thickening. This is likely chronic although could be correlated with urinalysis. ACT 112: Negative or not required by law. Electronically signed by: Sylvester Rivera M.D. 11/12/2023 11:01 AM
[2023-11-12 11:15] LABS: Appearance Urine Clear (Clear); Bacteria Urine Automated 2+ (None Seen); Bilirubin Urine Negative (Negative); Blood Urine Negative (Negative); Cast Urine Automated 0-2 /lpf (0-2); Color Urine Yellow; Epithelial Cell Urine Auto 0-2 /hpf (0-2); Glucose Urine UA Negative (Negative); Ketones Urine Negative (Negative); Leukocyte Esterase Urine 2+ (Negative); Nitrite Urine Negative (Negative); Protein Urine Negative (Negative); RBC Urine Automated 0-2 /hpf (0-2); Specific Gravity Urine 1.018 (1.000-1.030); Urobilinogen Urine Negative (Negative); WBC Urine Automated >50 /hpf (0-5)
[2023-11-12] MEDS: cefTRIAXone SODIUM 2,000 MG/50 ML BAG IV STA (11:52)
[2023-11-12] MEDS: PANTOprazole 40 MG TAB PO STA (11:52)
[2023-11-12] MEDS: METOPROLOL SUCC 50MG EXT REL TAB PO STA (12:10)
[2023-11-12] MEDS: FINASTERIDE 5 MG TAB PO ONE (12:10)
[2023-11-12] MEDS: LEVOTHYROXINE SODIUM 25 MCG TABLET PO ONE (12:10)
--- NOTE | 2023-11-12 12:44 | History & Physical Report ---
Date of Service November 12, 2023 Assessment & Plan (1) Acute UTI: (2) Headache: (3) Nausea: (4) Weakness: (5) PAF (paroxysmal atrial fibrillation): (6) Hx of CABG: (7) Coronary artery disease: (8) Hypertension: (9) Dyslipidemia: (10) Hypothyroidism: Plan UTI Weakness, Dizziness, Headache - Admit to med surg - Rocephin IV, follow UA and UCx, titrate abx as culture is available - Obtain blood culture x 1 - does have hx of incontinence and is using disposable underwear.-- Discussion held with pt with frequent changing of the disposable underwear, and urinating in a double void fashion, to make sure the bladder is completely empty. - PT/OT evals, does not use ambulation device at baseline - Check orthostatics - NSS x 1 more bag PAF CAD HTN HLD - Continue home meds, metoprolol succinate 100 mg PO QAM - statin intolerance hx, may continue zetia 10 mg daily - on aspirin but not on other formal anticoagulation Hypothyroidism - Cont levothyroxine 25 mcg daily Prediabetes - A1C Hx of gastric ulcer - omeprazole DVT ppx: teds, scds Lines: 1 PIV Diet: HH CODE: DNR/DNI - discussed with pt at bedside Dispo: From home, likely to remain in the hospital x 1-2 days A total of 75 minutes were spent with greater than 50% of that time face to face with the patient, personally reviewing all current laboratories, imaging studies, past medication reconciliation, outpatient chart review, and discussion with specialists to collaborate care for the patient with attending. Please see attending documentation for corrections and/or additions. History of Present Illness Chief Complaint: Weakness, dizziness, headache Primary Care Provider: Gin Leedsma MD This is a 88 yo M with PMHx of CAD s/p coronary bypass grafting Feb 2021, recieving TAVAREZ graft to LAD, a saphenous vein graft to the ramus, with sequential graft to the obtuse marginal, saphenous vein graft to the diagonal, and saphenous vein graft to the posterior descending artery. HLD, poor statin tolerance, hypothyroidism, hx of gastric ulcer disease, chronic epistaxis on when on high-dose aspirin, paroxysmal atrial fibrillation, nephrolithiasis, prediabetes, who presents to the hospital with acute onset of weakness, dizziness, headache found to have UA suspicious for UTI. He reports this started this morning when he got up to use the bathroom, and felt that he was dizzy with ambulation there, and then felt weak trying to get up from the toilet. He felt worsening dizziness and then started vomiting. His was at home with him, and he asked her to come to the hospital. Last time known well was yesterday. Denies any fever or chills. He also notes hearing loss about 1 week ago in the Right ear, but states that it has basically all come back at this point. He does use hearing aids at baseline. Pt reports planning to downsize his home, one without steps for his . He typically does go to the gym 3x per week, but due to moving, hasn't gone in the past week. Allergies Allergy/AdvReac Type Severity Reaction Status Date / Time [id number]-TXC-HtF Reductase Allergy Unknown MUSCLE Verified 11/12/23 11:43 Inhibitor ACHES [Sfnbvsj-Uns-Adk Reductase Inhibitor] atorvastatin AdvReac Unknown MUSCLE Verified 05/11/23 10:35 CRAMPS simvastatin AdvReac Unknown MUSCLE Verified 05/11/23 10:35 CRAMPS Home Medications Medication Instructions Recorded Confirmed Type ezetimibe 10 mg tablet (Zetia) 10 mg PO QAM ##0 07/23/07 11/12/23 History multivitamin 1 tab PO Q OTHER DAY ##0 07/18/09 11/12/23 History levothyroxine 25 mcg tablet 25 mcg PO QAM ##0 11/25/14 11/12/23 History aspirin 81 mg tablet,delayed 81 mg PO Q OTHER DAY ##0 06/07/17 11/12/23 History release (Adin Low Dose Aspirin) dorzolamide 2 % eye drops 1 drp OPL BID 04/11/18 11/12/23 History terazosin 2 mg capsule 2 mg PO HS 09/08/20 11/12/23 History netarsudil 0.02 % eye drops 1 drp OPL DAILY 05/04/23 11/12/23 History (Rhopressa) omeprazole 20 mg capsule,delayed 20 mg PO QAM 05/04/23 11/12/23 History release finasteride 5 mg tablet 5 mg PO QAM 11/12/23 11/12/23 History metoprolol succinate 25 mg 25 mg PO QAM 11/12/23 11/12/23 History tablet,extended release 24 hr Past Med/Surg History Problem List (Updated 11/12/23 @ 14:53 by Background Darin) Headache (Acute) Nausea (Acute) Weakness (Acute) Acute UTI (Acute) Microscopic hematuria Benign prostatic hyperplasia with urinary obstruction (Acute) Kidney stone on right side History of urinary calculi (Chronic) Arthritis (Acute) Dyslipidemia (Chronic) Hypothyroidism (Chronic) Hypertension (Chronic) Diverticular disease of colon (Chronic) Glaucoma (Chronic) Cataract (Chronic) History of peptic ulcer disease (Chronic) Benign prostatic hyperplasia (Chronic) Coronary artery disease (Chronic) CABG x 5 2001 Hx of CABG (Chronic) 5 vessels [facility]/ dr. nassar Hx of cholecystectomy (Chronic) PAF (paroxysmal atrial fibrillation) pt reports 1x episode while hospitalized at [facility] w/ kidney stones - approx 3- 4 years ago - follows w/ dr. Nassar Medical History Encounter for pre-operative examination History of COVID-19 Osteoarthritis GERD (gastroesophageal reflux disease) Hearing deficit Myocardial Infarction History of kidney stones Surgical History History of eye surgery S/P TURP (status post transurethral resection of prostate) History of esophagogastroduodenoscopy (EGD) History of colonoscopy History of cystoscopy History of cardiac cath Social History Smoking Status: Never smoker Second Hand Exposure: No; Do You Dip or Chew Tobacco: No; Hx Alcohol Use: Yes Alcohol type: beer Hx Substance Use: No Preferred Language: [place]an Communication Ability: Effective Evidence Custodian Required: No Beliefs That Will Affect Care: None Current Living Situation: Spouse Feels Safe at Home: Yes Assistive Devices: Cane, Glasses and Hearing Aid - Bilateral Assistive Devices Comment: reading glasses Review of Systems Review of Systems: Constitutional: No fever, sweats or chills, + headache rated 5/10 Eyes: No diplopia, no worsening or blurred vision ENT: normal hearing, notes R ear hearing loss 1 week ago, now seems to be resolved, no trouble swallowing Respiratory: No cough, sputum, dyspnea at rest or on exertion Cardiovascular: No chest pain, tightness or palpitations Abdomen: No pain, +nausea, +vomiting as per HPI, no diarrhea or constipation : no dysuria, hematuria or urinary frequency Musculoskeletal: No joint pain, calf pain, swelling Neurologic: + generalized weakness, no numbness/tingling, or balance problems Psychiatric: No anxiety or depression Skin: No rash or itch Physical Exam Physical Exam: Please refer to physician physical exam addendum. Results & Data Results & Data Vital Signs (Past 12 Hours) Vital Signs Temp Pulse Resp BP Pulse Ox O2 Del Method 11/12/23 12:03 65 16 100 11/12/23 12:00 144/85 H 11/12/23 11:51 63 16 98 11/12/23 11:36 58 L 14 99 11/12/23 11:30 168/90 H 11/12/23 11:09 55 L 19 99 11/12/23 11:00 153/69 H 11/12/23 10:54 61 15 98 Room Air 11/12/23 10:51 164/79 H 11/12/23 10:15 57 L 17 150/86 H 97 Room Air 11/12/23 09:48 59 L 20 100 Room Air 11/12/23 09:45 160/78 H 11/12/23 09:24 60 18 168/90 H 99 Room Air 11/12/23 09:01 60 17 99 Room Air 11/12/23 09:00 60 19 170/93 H 97 Room Air 11/12/23 09:00 61 11/12/23 08:46 36.2 C L 62 19 191/91 H 100 Room Air Laboratory Results 11/12/23 10:51 Urine Culture - Pending Urine,Clean Catch 11/12/23 11/12/23 11/12/23 10:51 09:08 09:00 WBC 5.59 RBC 4.50 L Hgb 13.4 L Hct 40.7 L MCV 90.4 MCH 29.8 MCHC 32.9 RDW Std Deviation 49.1 H RDW Coeff of Alvina 15.0 H Plt Count 162 MPV 10.4 Immature Gran % (Auto) 1.1 Neut % (Auto) 67.9 Lymph % (Auto) 21.8 Barber % (Auto) 7.2 Eos % (Auto) 1.6 Baso % (Auto) 0.4 Neut # (Auto) 3.80 Lymph # (Auto) 1.22 Barber # (Auto) 0.40 Eos # (Auto) 0.09 Baso # (Auto) 0.02 Immature Gran # (Auto) 0.06 Sodium 141 Potassium 4.5 Chloride 105 Carbon Dioxide 30 Anion Gap 6 BUN 17 Creatinine 1.13 Est Cr Clr Drug Dosing 51.5 eGFR 63.30 BUN/Creatinine Ratio 15.0 Glucose 113 H Calcium 9.6 Magnesium 2.1 Total Bilirubin 1.2 H AST 19 ALT 16 Alkaline Phosphatase 56 Troponin I High Sens 10.5 Total Protein 7.4 Albumin 4.4 Globulin 3.0 Albumin/Globulin Ratio 1.5 Lipase 19 TSH 2.390 Urine Color Yellow Urine Appearance Clear Urine pH 8.0 H Ur Specific Alpine 1.018 Urine Protein Negative Urine Glucose (UA) Negative Urine Ketones Negative Urine Blood Negative Urine Nitrite Negative Urine Bilirubin Negative Urine Urobilinogen Negative Ur Leukocyte Esterase 2+ H Urine WBC (Auto) >50 H Urine RBC (Auto) 0-2 U Hyaline Cast (Auto) 0-2 U Epithel Cells (Auto) 0-2 Urine Bacteria (Auto) 2+ H Adenovirus (PCR) Not Detected B. pertussis DNA (PCR) Not Detected B.parapertussis DNA PCR Not Detected C. pneumoniae DNA (PCR) Not Detected Coronavirus OC43 (PCR) Not Detected Coronavirus HKU1 (PCR) Not Detected Coronavirus 229E (PCR) Not Detected SARS-CoV-2 (PCR) Not Detected Coronavirus NL63 (PCR) Not Detected Human Metapneumovir PCR Not Detected Influenza Type A (PCR) Not Detected Influenza Type B (PCR) Not Detected M. pneumoniae (PCR) Not Detected Parainfluenza 1 (PCR) Not Detected Parainfluenza 2 (PCR) Not Detected Parainfluenza 3 (PCR) Not Detected Parainfluenza 4 (PCR) Not Detected RSV (PCR) Not Detected Entero/Rhino (PCR) Not Detected Diagnostic Findings Abdomen/Pelvis CT 11/12/23 08:53 CT OF THE ABDOMEN AND PELVIS WITH CONTRAST CLINICAL HISTORY: weak, nausea, dizzy COMPARISON STUDY: CT of the abdomen and pelvis April 18, 2023. Renal ultrasound August 22, 2023. TECHNIQUE: Following IV administration of 94 mL of Optiray, axial images of the abdomen and pelvis were obtained from the lung bases to the proximal femurs. Images were reviewed in the axial, sagittal, and coronal planes. IV contrast was administered without complication. Automated exposure control was utilized for the study. A dose lowering technique was utilized adhering to the principles of ALARA. CT DOSE: 2305.01 mGy.cm FINDINGS: No pneumatosis, free air or portal venous gas is present. There is probable hepatic steatosis. No biliary ductal dilatation status post cholecystectomy. The spleen, adrenal glands, kidneys and pancreas are unremarkable. There is no hydronephrosis. There are no urinary calculi. A small right lateral bladder diverticulum is present. Mild bladder wall thickening is likely chronic. Caliber and wall thickness of small and large bowel are normal. The appendix is normal. Colonic diverticulosis without evidence for acute diverticulitis. There are no fluid collections. No fractures or suspicious lesions within the visualized skeletal structures are present. The appearance of the abdomen and pelvis is similar to CT of April 18, 2023. IMPRESSION: 1. No acute process within the abdomen or pelvis. 2. No bowel obstruction. No bowel wall thickening. 3. Colonic diverticulosis. No evidence for acute diverticulitis. 4. Bladder wall thickening. This is likely chronic although could be correlated with urinalysis. ACT 112: Negative or not required by law. Electronically signed by: Sylvester Rivera M.D. 11/12/2023 11:01 AM Chest X-Ray 11/12/23 08:53 XR chest 1V portable CLINICAL HISTORY: weakness, dizzy, nausea COMPARISON STUDY: Chest radiograph April 11, 2018. FINDINGS: There are median sternotomy wires and mediastinal surgical clips. Lung volumes are normal. Lungs are clear. There is no pneumothorax or pleural effusion. Cardiomegaly is unchanged. Mediastinal contours are normal. There is no evidence for pulmonary edema. IMPRESSION: No acute cardiopulmonary findings. No change in appearance of the chest. ACT 112: Negative or not required by law. Electronically signed by: Sylvester Rivera M.D. 11/12/2023 9:[address] 11/12/23 08:53 CT OF THE HEAD WITHOUT CONTRAST CLINICAL HISTORY: dizzy, nausea, weak COMPARISON STUDY: No previous studies for comparison. TECHNIQUE: Helical axial images of the head were obtained without IV contrast. Automated exposure control was utilized for the study. A dose lowering technique was utilized adhering to the principles of ALARA. FINDINGS: No acute intracranial hemorrhage, midline shift or mass effect is present. White matter hypodensities are suggestive of small vessel disease. The ventricular system is unremarkable. The basal cisterns are patent. No extra- axial collections are present. There are no findings to suggest acute dural sinus thrombosis or acute territorial infarct. No significant calvarial abnormalities are present. Visualized portions of the sinuses and mastoid air cells are clear. IMPRESSION: No acute intracranial findings. ACT 112: Negative or not required by law. Electronically signed by: Sylvester Rivera M.D. 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 QTC 429 Code Status & VTE Plan Code Status DNR/DNI Supervising Physician Co-Signing Physician Notes Patient is a 88-year-old male with past medical history of CAD status post CABG, hyperlipidemia, hypothyroidism, transient atrial fibrillation, history of renal stones, history of BPH status post TURP presented with generalized weakness, nausea and dizziness starting today morning. He denies fever, chills, chest pain, shortness of breath or abdominal pain. He denies burning micturition, increased frequency. CBC does not reveal leukocytosis. Urinalysis is suggestive of infection. Reviewed patient medical record; no prior urine culture results available. On physical examination; Constitutional: Alert oriented x 3; not in distress. Respiratory: normal respiratory effort, lungs clear to auscultation, no wheeze, rales, rhonchi. Normal insp/exp effort, no accessory muscle use Cardiovascular: RRR, no murmur, no edema Vessels: no JVD or carotid bruit Chest: normal inspection of chest Abdomen: Soft, nontender. Costovertebral angle nontender. Skin: no rashes, warm and dry normal turgor Neurologic: PERRL, EOMI, accommodation nl, no face palsy, no dysarthria CN's II- XI intact bilaterally and moves all extremities Psychiatric: A+Ox3, euthymic affect Assessment/plan Acute UTI History of BPH status post TURP Obtain blood culture Continue ceftriaxone; follow-up on final urine and blood culture IV fluids for 1 L Orthostatic blood pressure monitoring Bladder scan every 8 hours postvoid. Might need urology evaluation if he has chronic retention. Continue other home meds I have reviewed the advanced practitioner's documentation, and I agree with, and take responsibility for the plan of care I spent a total of 30 minutes coordinating, documenting, and providing care for this patient excluding time spent in the performance of separately billed services. All of the aforementioned completed while collaborating with the assigned advanced practitioner for a full treatment plan
--- NOTE | 2023-11-12 13:52 | Electrocardiogram Report ---
Test Reason : Blood Pressure : */* mmHG Vent. Rate : 64 BPM Atrial Rate : 64 BPM P-R Int : 184 ms QRS Dur : 100 ms QT Int : 416 ms P-R-T Axes : -20 26 -9 degrees QTcB Int : 429 ms Normal sinus rhythm Lateral infarct , age undetermined Abnormal ECG When compared with ECG of 24-May-2017 07:14, Lateral infarct is now Present T wave inversion now evident in Inferior leads Nonspecific T wave abnormality no longer evident in Lateral leads Confirmed by Fletcher Brandt ([id number]) on 11/12/2023 1:52:32 PM Referred By: REFERRED SELF Confirmed By: Fletcher Brandt
[2023-11-12] MEDS ORDERED: ONDANSETRON INJ 2 MG/ML 2 ML VIAL IV PRN (14:59)
[2023-11-12] MEDS: SODIUM CHLORIDE 0.9% 1,000 ML IV SCH (15:26)
[2023-11-12] MEDS: ACETAMINOPHEN 325 MG TAB PO PRN (15:47)
[2023-11-12] MEDS: ASPIRIN 81 MG ECTAB PO SCH (17:08)
[2023-11-12] MEDS: DORZOLAMIDE HCL 2% OPH SOLN 10 ML BTL OPL SCH (19:53)
[2023-11-12] MEDS: TERAZOSIN HCL 1 MG CAP PO SCH (19:54)
[2023-11-12 23:16] VITALS: RESP 16
[2023-11-13] MEDS: LEVOTHYROXINE SODIUM 25 MCG TABLET PO SCH (05:55)
[2023-11-13] MEDS: EZETIMIBE 10 MG TAB PO SCH (07:51)
[2023-11-13] MEDS: FINASTERIDE 5 MG TAB PO SCH (07:52)
[2023-11-13] MEDS: PANTOprazole 40 MG TAB PO SCH (07:53)
[2023-11-13] MEDS: MULTIVITAMIN TAB PO SCH (07:53)
[2023-11-13] MEDS: METOPROLOL SUCC 25MG EXT REL TAB PO SCH (07:53)
[2023-11-13] MEDS: NETARSUDIL MESYLATE 37 DROPS/2.5 ML BTL OPL SCH (07:56)
[2023-11-13 08:09] LABS: Hematocrit (blood only) 34.3 % (42.0-52.0); Hemoglobin 11.4 g/dl (14.0-18.0); Mean Corpuscular Hemoglobin 29.8 pg (25.0-34.0); Mean Corpuscular Hgb Conc 33.2 g/dL (32.0-36.0); Mean Corpuscular Volume 89.6 fL (80.0-100.0); Platelet Count 135 K/uL (130-400); RDW Coefficient of Variation 15.1 % (11.5-14.5); RDW Standard Deviation 48.7 fL (36.4-46.3); Red Blood Count 3.83 M/uL (4.70-6.10)
[2023-11-13 08:31] LABS: BUN Creatinine Ratio 11.2 (10-20); Calcium 8.7 mg/dl (8.6-10.3); Creatinine Clr Calc Pharmacy 46.6 ml/min; Potassium 4.1 mmol/L (3.5-5.1)
[2023-11-13 08:41] LABS: Estimated Average Glucose 108 mg/dl; Hemoglobin A1C 5.4 % (4.5-5.6)
--- NOTE | 2023-11-13 11:56 | Hospitalist Progress Note ---
Date of Service November 13, 2023 Assessment & Plan (1) Acute UTI: (2) Persistent postural-perceptual dizziness: (3) PAF (paroxysmal atrial fibrillation): (4) Coronary artery disease: (5) Hypertension: (6) Hypothyroidism: Plan Patient presents with persistent dizziness and weakness. Initial evaluation concerning for UTI Continue ceftriaxone for UTI Monitor urine culture Patient reports dizziness for quite some time. Will check MRI of the brain to rule out occult posterior cerebral infarction Continue working with therapies Continue other medical treatment as ordered Admission and Anticipated Discharge Date Admission Date: November 12, 2023 Subjective Patient continues to complain of intermittent dizziness. Denies true vertiginous symptoms. Occasionally with changes in positions. Physical Exam Physical Exam: Constitutional: Alert, sitting up on edge of the bed, in nontoxic appearance HEENT: Mucous membranes moist. Lungs: Clear to auscultation, decreased, no wheezes rales or rhonchi CV: S1-S2, regular Abdomen: Soft, nontender, nondistended Extremities: No significant edema Neuro: Some mild generalized weakness Psych: Cooperative, normal mood Results & Data Results & Data Vital Signs (Past 12 Hours) Vital Signs Temp Pulse Resp BP Pulse Ox O2 Del Method 11/13/23 08:14 36.6 C 56 L 16 124/68 99 Room Air Diagnostic Findings Reviewed CT of the head, chronic microvascular disease TSH 2.39 Electrolytes within normal range Renal function within normal range
[2023-11-13] MEDS: GADOBUTROL 30ML VIAL IV ONE (13:22)
[2023-11-13] MEDS: cefTRIAXone SODIUM 2,000 MG/50 ML BAG IV SCH (13:40)
--- NOTE | 2023-11-13 17:37 | Magnetic Resonance Report ---
MR brain wo/w con CLINICAL HISTORY: dizzy, ambulatory dysfunction TECHNIQUE: Multiplanar and multisequence MR images of the brain were obtained prior to and following administration of gadolinium contrast. Comparison: None available at the time of this dictation. FINDINGS: No abnormal restricted diffusion is identified. Foci of T2 and FLAIR hyperintensity are noted in the paraventricular areas consistent with chronic small vessel ischemic disease. Ex vacuo ventriculomegal y and sulcal enlargement is noted compatible with diffuse volume loss. No mass or abnormal enhancemen t is seen. There is no mass effect or midline shift. There is no evidence of acute intraparenchymal h emorrhage. No extra axial fluid collections are seen. The corpus callosum, pituitary gland, and cereb ellar tonsils appear grossly unremarkable. Flow voids of the major intracranial arterial vessels are identified. The imaged portions of the para nasal sinuses, mastoid air cells, and orbits are unremarkable. IMPRESSION: No acute abnormalities. ACT 112: Negative or not required by law. Electronically signed by: Krishna Bermeo M.D. 11/13/2023 5:36 PM
[2023-11-14 08:05] VITALS: BP 119/67; PULSE 63; TEMP 97.7; O2SAT 98
--- NOTE | 2023-11-14 10:01 | Discharge Summary ---
Discharge Summary Date of Service November 14, 2023 Principal Dx & Hospital Course #1 = Principal Diagnosis (1) Acute UTI: (2) Persistent postural-perceptual dizziness: (3) Eustachian tube dysfunction: (4) PAF (paroxysmal atrial fibrillation): (5) Coronary artery disease: (6) Hypertension: (7) Hypothyroidism: Plan Patient 88-year-old gentleman presenting to the emergency room with some lightheadedness and dizziness. Initial evaluation in the emergency room was consistent with urinary tract infection. Patient was admitted to the hospital. Given some IV fluid resuscitation and started on empiric antibiotics. By the he was feeling improved but still felt somewhat dizzy. Denied true vertigo. And denied significant positional symptoms. Said been going on for several weeks. MRI of the brain was performed to rule out an acute infarct. There is no evidence of any acute acute findings on MRI. Urine culture did grow E. coli that was pansensitive. The morning of discharge his dizziness significantly improved his weakness, nausea significantly improved. He was tolerating his diet. He is up and ambulating. Seen by therapies who recommended that he go home with a walker. Prescription for wheeled walker was dispensed. Patient will be converted to oral Keflex to complete a course of antibiotics for his urinary tract infection. Patient was not exhibiting any signs of significant urinary retention, however, suspect BPH is playing a role into his emptying his bladder and the reason for the urinary tract infection. Patient can follow-up with his PCP or outpatient neurologist if this would become a recurrent issue. Patient seems to maybe have some chronic eustachian tube dysfunction. Recommended that he discuss this with his PCP, may need ENT referral. Otherwise patient be discharged home to complete a course of oral antibiotics and follow-up with his outpatient providers. Notes For Next Care Provider May need urology referral if ongoing issues with BPH May need ENT referral if continued complaints of eustachian tube dysfunction Medication Changes From Visit Keflex added for UTI Admission HPI Per Admitting Provider This is a 88 yo M with PMHx of CAD s/p coronary bypass grafting Feb 2021, recieving TAVAREZ graft to LAD, a saphenous vein graft to the ramus, with sequential graft to the obtuse marginal, saphenous vein graft to the diagonal, and saphenous vein graft to the posterior descending artery. HLD, poor statin tolerance, hypothyroidism, hx of gastric ulcer disease, chronic epistaxis on when on high-dose aspirin, paroxysmal atrial fibrillation, nephrolithiasis, prediabetes, who presents to the hospital with acute onset of weakness, dizziness, headache found to have UA suspicious for UTI. He reports this started this morning when he got up to use the bathroom, and felt that he was dizzy with ambulation there, and then felt weak trying to get up from the toilet. He felt worsening dizziness and then started vomiting. His was at home with him, and he asked her to come to the hospital. Last time known well was yesterday. Denies any fever or chills. He also notes hearing loss about 1 week ago in the Right ear, but states that it has basically all come back at this point. He does use hearing aids at baseline. Pt reports planning to downsize his home, one without steps for his . He typically does go to the gym 3x per week, but due to moving, hasn't gone in the past week. Admission Exam Per Admitting Provider See H&P Discharge Exam Constitutional: Alert, nontoxic HEENT: Mucous membranes moist. Lungs: Clear to auscultation, decreased, no wheezes rales or rhonchi CV: S1-S2, regular Abdomen: Soft, nontender, nondistended Extremities: No significant edema Neuro: No focal deficits, strength and balance improved Psych: Cooperative, normal mood Updated Medication List Medication Instructions Recorded Confirmed Type ezetimibe 10 mg tablet (Zetia) 10 mg PO QAM ##0 07/23/07 11/12/23 History multivitamin 1 tab PO Q OTHER DAY ##0 07/18/09 11/12/23 History levothyroxine 25 mcg tablet 25 mcg PO QAM ##0 11/25/14 11/12/23 History aspirin 81 mg tablet,delayed 81 mg PO Q OTHER DAY ##0 06/07/17 11/12/23 History release (Adin Low Dose Aspirin) dorzolamide 2 % eye drops 1 drp OPL BID 04/11/18 11/12/23 History terazosin 2 mg capsule 2 mg PO HS 09/08/20 11/12/23 History netarsudil 0.02 % eye drops 1 drp OPL DAILY 05/04/23 11/12/23 History (Rhopressa) omeprazole 20 mg capsule,delayed 20 mg PO QAM 05/04/23 11/12/23 History release finasteride 5 mg tablet 5 mg PO QAM 11/12/23 11/12/23 History metoprolol succinate 25 mg 25 mg PO QAM 11/12/23 11/12/23 History tablet,extended release 24 hr cephalexin 500 mg capsule 500 mg PO TID 3 days #9 caps 11/14/23 Rx Hospital Stay Data Consultations 11/12/23 11:43 ED Decision to Admit Stat Diagnostic Imagining Performed 11/12/23 08:53 CT abd pelvis IV con only Stat CT head/brain wo con Stat 11/13/23 11:52 MRI Brain [MR brain wo/w con] Routine Reviewed imaging, laboratory and diagnostic studies. Pertinent findings as below. MRI negative for acute findings Urine culture E. coli pansensitive Hemoglobin 11.4, stable Electrolytes within normal range Renal function within normal range Pending Results Patient Have Any Pending Studies at Discharge: No Discharge Instructions Given to Patient (Per Discharging Provider) If you continue to have congestion in your ear, discussed with your PCP ENT referral Total Time Total Time Spent Total Time Spent (In Minutes): 27
== END 2023-11-14 13:13 | disposition home or self-care (01) | DRG 690 ==
LOC: ED 08:41 → 3W 12:46 → SUATTDRO 12:46 → 3W 14:44